=== PATIENT | female | born 1980 | race Caucasian/White ===

== ENCOUNTER 2018-05-14 21:51 | Inpatient (IN) | payer MEDICAID ==
[2018-05-14 22:48] LABS: HEMATOCRIT 38.5 % (41.0-60); HEMOGLOBIN 13.2 gm/dL (12-16); LYMPHOCYTE ABSOLUTE 2.1 Th/cmm (1.5-3.0); MEAN CELL VOLUME 101.9 fl (81-100); MEAN CORPUSCULAR HEMOGLOBIN 34.8 pg (27.0-31.0); MEAN CORPUSCULAR HGB CONC 34.1 pg (28.0-36.0); MEAN PLATELET VOLUME 6.7 fl; MONOCYTE ABSOLUTE 1.2 Th/cmm (0.3-1.0); NEUTROPHILE ABSOLUTE 3.8 Th/cmm (1.8-8.0); PLATELET COUNT 277 Th/cmm (150-400); RED BLOOD COUNT 3.78 Mil/cmm (3.80-5.10); RED CELL DISTRIBUTION WIDTH 14.2 % (11.5-20.0); WHITE BLOOD COUNT 7.1 Th/cmm (4.8-10.8)
[2018-05-14 23:05] LABS: VALPROIC ACID 14.7 ug/mL (50.0-100.0)
[2018-05-14 23:07] LABS: ALB/GLOB RATIO 1.1 (1.0-1.8); ALBUMIN 3.7 gm/dL (3.7-5.3); ALKALINE PHOSPHATASE 62 U/L (34-104); ANION GAP 15.7 (7.0-16.0); BILIRUBIN,TOTAL 0.4 mg/dL (0.3-1.0); BUN - UREA NITROGEN 15 mg/dL (7-25); CALCIUM SERUM 9.6 mg/dL (8.6-10.3); CARBON DIOXIDE 22.9 mEq/L (21.0-31.0); CHLORIDE 101 mEq/L (98-107); CREATININE - SERUM 0.7 mg/dL (0.6-1.2); GFR AFRICAN-AMERICAN > 60.0 ml/min (>90); GFR NON AFRICAN-AMERICAN > 60.0 ml/min; GLUCOSE 130 mg/dL (70-105); MAGNESIUM 1.8 mg/dL (1.9-2.7); PHOSPHOROUS 3.6 mg/dL (2.5-5.0); POTASSIUM SERUM 3.6 mEq/L (3.5-5.1); SGOT 24 U/L (13-39); SGPT/ALT 16 U/L (7-52); SODIUM SERUM 136 mEq/L (136-145); TOTAL PROTEIN,SERUM 7.1 gm/dL (6.0-8.3)
[2018-05-14 23:14] LABS: URINE SOURCE CATH
[2018-05-14 23:16] LABS: BAND NEUTROPHILE 3 % (0-10); LYMPHOCYTE 25 % (20-50); NEUTROPHILS 52 % (40-80)
[2018-05-14 23:16] LABS: URINE BILIRUBIN NEGATIVE (NEGATIVE); URINE BLOOD LARGE (NEGATIVE); URINE GLUCOSE (UA) NEGATIVE (NEGATIVE); URINE KETONE 40 mg/dL (NEGATIVE); URINE LEUKOCYTE ESTERASE NEGATIVE (NEGATIVE); URINE MICROSCOPIC INDICATED? YES; URINE NITRATE NEGATIVE (NEGATIVE); URINE PROTEIN 30 mg/dL (NEGATIVE)
[2018-05-14 23:17] LABS: BASOPHIL 2 % (0-3); EOSINOPHIL 0 % (0-5); MONOCYTE 18 % (2-10); PLATELET ESTIMATE ADEQUATE (NORMAL); PLATELET MORPHOLOGY NORMAL (NORMAL)
[2018-05-14 23:20] LABS: URINE CLARITY CLEAR (CLEAR); URINE COLOR YELLOW
[2018-05-14 23:38] LABS: URINE EPITHELIAL CELLS RARE /lpf (FEW)
[2018-05-14 23:39] LABS: URINE BACTERIA NONE SEEN /hpf (NONE SEEN)
[2018-05-14] MEDS ORDERED: Lactated Ringer 1,000 ML IV ONE (23:39)
[2018-05-14 23:47] LABS: AMPHETAMINE URINE NEGATIVE (NEGATIVE); BARBITURATES URINE NEGATIVE (NEGATIVE); BENZODIAZEPINES QUAL URINE NEGATIVE (NEGATIVE); CANNABINOID THC NEGATIVE (NEGATIVE); COCAINE METABOLITE QUAL URINE NEGATIVE (NEGATIVE); METHADONE URINE NEGATIVE (NEGATIVE); METHAMPHETAMINES QUAL URINE NEGATIVE (NEGATIVE); OPIATES (MORPHINE) QUAL. URINE NEGATIVE (NEGATIVE); PHENCYCLIDINE (PCP) URINE NEGATIVE (NEGATIVE); TRICYCLICS (TCA) QUAL. URINE POSITIVE (NEGATIVE)
--- NOTE | 2018-05-15 00:25 | ED Physician Chart ---
ED Chief Complaint/HPI - Patient Information Date Seen:: 05/14/18 Time Seen:: 22:00 Chief Complaint:: vomiting x 1; failure to thrive History of Present Illness:: vomiting x 1; failure to thrive Allergies:: Allergies Allergy/AdvReac Type Severity Reaction Status Date / Time No Known Allergies Allergy Verified 05/14/18 22:10 Vitals:: Vital Signs - 8 hr 05/14/18 22:00 Temp 97.6 F HR 84 RR 18 BP 106/64 O2 Sat % 97 ED Review of Systems - Review of Systems General/Constitutional: No fever, No chills, No weight loss, No weakness, No diaphoresis, No edema, No loss of appetite Skin: No skin lesions, No rash, No bruising Head: No headache, No light-headedness Eyes: No loss of vision, No pain, No diplopia ENT: No earache, No nasal drainage, No sore throat, No tinnitus Neck: No neck pain, No swelling, No thyromegaly, No stiffness, No mass noted Cardio Vascular: No chest pain, No palpitations, No PND, No orthopnea, No edema Pulmonary: No SOB, No cough, No sputum, No wheezing GI: Nausea, Vomiting G/U: No dysuria, No frequency, No hematuria Musculoskeletal: No bone or joint pain, No back pain, No muscle pain Endocrine: No polyuria, No polydipsia Psychiatric: No prior psych history, No depression, No anxiety, No suicidal ideation Hematopoietic: No bruising, No lymphadenopathy Allergic/Immuno: No urticaria, No angioedema Neurological: No syncope, No focal symptoms, No weakness, No paresthesia, No headache, No seizure, No dizziness, No confusion, No vertigo Family Medical History - Family Member Mother History Unknown: Yes ED Physical Exam - Physical Examination General/Constitutional: Awake, Well-developed, well-nourished, Alert, No distress, GCS 15, Non-toxic appearing, Ambulatory Head: Atraumatic Eyes: Lids, conjuctiva normal, PERRL, EOMI Skin: Nl inspection, No rash, No skin lesions, No ecchymosis, Well hydrated, No lymphadenopathy ENMT: External ears, nose nl, Nasal exam nl, Lips, teeth, gums nl Neck: Nontender, Full ROM w/o pain, No JVD, No nuchal rigidity, No bruit, No mass, No stridor Respiratory: Nl effort/Exclusion Cardio Vascular: RRR, No murmur, gallop, rubs, NL S1 S2 GI: No tenderness/rebounding/guarding, No organomegaly, No hernia, Normal BS's, Nondistended, No mass/bruits, No McBurney tenderness : No CVA tenderness Extremities: No tenderness or effusion, Full ROM, normal strength in all extremities, No edema, Normal digits & nails Other Extremities comments:: bruising on legs. Neuro/Psych: No focal deficits Misc: Normal back, No paraspinal tenderness ED Labs/Radiology/EKG Results - Lab Results Results: Laboratory Tests 05/14/18 05/14/18 05/14/18 22:40 22:40 22:40 WBC 7.1 RBC 3.78 L Hgb 13.2 Hct 38.5 L MCV 101.9 H MCH 34.8 H MCHC Differential 34.1 RDW 14.2 Plt Count 277 MPV 6.7 Add Manual Diff YES Band Neutrophils % 3 Neutrophils (Manual) 52 Lymphocytes 25 Monocytes 18 H Eosinophils 0 Basophils 2 Platelet Estimate ADEQUATE Platelet Morphology NORMAL RBC Morph Micro Appear NORMAL Sodium 136 Potassium 3.6 Chloride 101 Carbon Dioxide 22.9 Anion Gap 15.7 BUN 15 Creatinine 0.7 Est GFR ( Amer) > 60.0 Est GFR (Non-Af Amer) > 60.0 BUN/Creatinine Ratio 21.4 Glucose 130 H Calcium 9.6 Phosphorus 3.6 Magnesium 1.8 L Total Bilirubin 0.4 AST 24 ALT 16 Alkaline Phosphatase 62 Total Protein 7.1 Albumin 3.7 Globulin 3.4 Albumin/Globulin Ratio 1.1 TSH 4.78 Urine Source Urine Color Urine Clarity Urine pH Ur Specific [place] Urine Protein Urine Glucose (UA) Urine Ketones Urine Blood Urine Nitrate Urine Bilirubin Urine Urobilinogen Ur Leukocyte Esterase Urine RBC Urine WBC Ur Epithelial Cells Urine Bacteria Urine Mucus Urine Opiates Screen Urine Methadone Screen Ur Barbiturates Screen Valproic Acid 14.7 L Ur Tricyclics Screen Ur Phencyclidine Scrn Amphetamines Screen U Methamphetamines Scrn U Benzodiazepines Scrn U Cocaine Metab Screen U Cannabinoids Screen 05/14/18 05/14/18 23:00 23:00 WBC RBC Hgb Hct MCV MCH MCHC Differential RDW Plt Count MPV Add Manual Diff Band Neutrophils % Neutrophils (Manual) Lymphocytes Monocytes Eosinophils Basophils Platelet Estimate Platelet Morphology RBC Morph Micro Appear Sodium Potassium Chloride Carbon Dioxide Anion Gap BUN Creatinine Est GFR ( Amer) Est GFR (Non-Af Amer) BUN/Creatinine Ratio Glucose Calcium Phosphorus Magnesium Total Bilirubin AST ALT Alkaline Phosphatase Total Protein Albumin Globulin Albumin/Globulin Ratio TSH Urine Source CATH Urine Color YELLOW Urine Clarity CLEAR Urine pH 7.0 Ur Specific [place] 1.015 Urine Protein 30 H Urine Glucose (UA) NEGATIVE Urine Ketones 40 H Urine Blood LARGE H Urine Nitrate NEGATIVE Urine Bilirubin NEGATIVE Urine Urobilinogen 1.0 Ur Leukocyte Esterase NEGATIVE Urine RBC 10-25 H Urine WBC 2-5 Ur Epithelial Cells RARE Urine Bacteria NONE SEEN Urine Mucus FEW Urine Opiates Screen NEGATIVE Urine Methadone Screen NEGATIVE Ur Barbiturates Screen NEGATIVE Valproic Acid Ur Tricyclics Screen POSITIVE H Ur Phencyclidine Scrn NEGATIVE Amphetamines Screen NEGATIVE U Methamphetamines Scrn NEGATIVE U Benzodiazepines Scrn NEGATIVE U Cocaine Metab Screen NEGATIVE U Cannabinoids Screen NEGATIVE ED Assessment - Assessment General Assessment: spoke to Dr. Liao about admitting this patient for IV fluids. ED Septic Shock - . Is Septic Shock (SBP<90, OR Lactate>4 mmol\L) present?: No - <6hrs of presentation: Vital Signs: Vital Signs - 8 hr 05/14/18 22:00 Temp 97.6 F HR 84 RR 18 BP 106/64 O2 Sat % 97 ED Reassessment (Disposition) - Reassessment Reassessment Condition:: Unchanged - Diagnosis Diagnosis:: Failure to thrive - Patient Disposition Discharge/Transfer:: Acute Care w/in this hosp Admitted to:: Med/Surg Condition at Disposition:: Stable, Unchanged
[2018-05-15] MEDS: D5-0.45NS 1,000 ML IV SCH ×2 (01:43→13:41)
[2018-05-15 02:18] VITALS: BP 96/61
[2018-05-15] MEDS ORDERED: Pneumococcal Vaccine 0.5 mL Vial IM ONE (02:28)
[2018-05-15 06:56] LABS: HEMOGLOBIN 11.8 gm/dL (12-16); MEAN CELL VOLUME 101.9 fl (81-100); MEAN CORPUSCULAR HEMOGLOBIN 35.2 pg (27.0-31.0); MEAN CORPUSCULAR HGB CONC 34.6 pg (28.0-36.0); PLATELET COUNT 261 Th/cmm (150-400); RED BLOOD COUNT 3.34 Mil/cmm (3.80-5.10); RED CELL DISTRIBUTION WIDTH 13.8 % (11.5-20.0); WHITE BLOOD COUNT 6.6 Th/cmm (4.8-10.8)
[2018-05-15 07:18] LABS: ALB/GLOB RATIO 1.2 (1.0-1.8); ALKALINE PHOSPHATASE 49 U/L (34-104); ANION GAP 8.7 (7.0-16.0); BILIRUBIN,TOTAL 0.2 mg/dL (0.3-1.0); BUN - UREA NITROGEN 12 mg/dL (7-25); CALCIUM SERUM 8.8 mg/dL (8.6-10.3); CHLORIDE 105 mEq/L (98-107); CREATININE - SERUM 0.6 mg/dL (0.6-1.2); GFR AFRICAN-AMERICAN > 60.0 ml/min (>90); GFR NON AFRICAN-AMERICAN > 60.0 ml/min; GLUCOSE 120 mg/dL (70-105); POTASSIUM SERUM 3.7 mEq/L (3.5-5.1); SGOT 18 U/L (13-39); SGPT/ALT 12 U/L (7-52); SODIUM SERUM 136 mEq/L (136-145); TOTAL PROTEIN,SERUM 5.6 gm/dL (6.0-8.3)
[2018-05-15 07:19] LABS: CHOLESTEROL 147 mg/dL (<200); HDL -HIGH DENSITY LIPOPROTEIN 63 mg/dL (23-92); TRIGLYCERIDES 75 mg/dL (<150)
[2018-05-15] MEDS ORDERED: CABERGOLINE 0.25 MG PO SCH (08:00)
[2018-05-15] MEDS ORDERED: CABERGOLINE 0.5 MG PO SCH (08:00)
[2018-05-15 08:15] LABS: BAND NEUTROPHILE 4 % (0-10); BASOPHIL 0 % (0-3); EOSINOPHIL 0 % (0-5); LYMPHOCYTE 30 % (20-50); MONOCYTE 14 % (2-10); NEUTROPHILS 52 % (40-80)
[2018-05-15] MEDS ORDERED: Non-Formulary Item 1 EA (Omeprazole [Omeprazole] 40 MG) PO SCH (09:00)
[2018-05-15] MEDS ORDERED: HALOPERIDOL 2 MG PO SCH (09:00)
[2018-05-15] MEDS ORDERED: BACITRACIN TP SCH (09:00)
[2018-05-15] MEDS: Benztropine 1 MG TAB PO SCH ×4 (09:32→19:03)
[2018-05-15] MEDS: Vitamin D3 2,000 IU SGL PO SCH ×2 (09:32→12:55)
[2018-05-15] MEDS: Lactulose 10 Gm/15 mL 30mL UDC PO SCH ×2 (09:32→12:54)
[2018-05-15] MEDS: Levothyroxine 0.025 Mg Tab PO SCH ×2 (09:33→12:55)
--- NOTE | 2018-05-15 13:12 | History & Physical ---
ADMIT DATE: 05/15/2018 REQUESTING PHYSICIAN: Dr. Liao. REASON FOR CONSULTATION: Nausea and vomiting. HISTORY OF PRESENT ILLNESS: This is a 37-year-old female with history of mental retardation who usually lives in a care facility, who was brought in for reportedly one episode of nausea and vomiting. The patient currently is in no acute distress, lying in her bed and nursing notes and report is not mentioned any further episodes of nausea or vomiting. The patient is currently not receiving anything for her nausea and we have ordered Zofran p.r.n. The patient was noted to be slightly dehydrated upon presentation and was thus admitted. PAST MEDICAL HISTORY: History of mental retardation. No other past medical history is able to be assessed. FAMILY HISTORY: Unknown given patient's current history. REVIEW OF SYSTEMS: Unable to obtain given the patient's current state. MEDICATIONS: Have been reviewed. PHYSICAL EXAMINATION: VITAL SIGNS: Temperature 97.6, pulse of 84, respiratory rate of 18, blood pressure is 106/64, she is satting 97% on room air. GENERAL: No acute distress. HEENT: Normocephalic, atraumatic. PERRL positive. LUNGS: Clear bilaterally. No wheezes, rales, or rhonchi. HEART: Regular rate and rhythm, normal S1, S2. ABDOMEN: Soft, nontender, bowel sounds are positive. EXTREMITIES: Show no lower extremity edema. NEUROLOGIC: Grossly intact. LABORATORY DATA: White count of 7.1, hemoglobin 13.2, hematocrit 38.5, platelets of 277. Sodium 136, potassium 3.6, chloride 101, CO2 of 22.9. IMAGING: No relevant imaging has been ordered. ASSESSMENT AND PLAN: This is a 37-year-old female with history of mental retardation, developmental delay, who presents with episode of nausea and vomiting. 1. Intractable nausea and vomiting. 2. History of developmental delay. 3. Abdominal discomfort. RECOMMENDATIONS: Agree with empiric PPI therapy. We will also add Zofran to her regimen to see if this will assist. Discussed with nursing staff who will phone over to the care facility, she was at to help with patient's feeding and see if she has any preferences when I pertaining to this matter. If the patient has inability to eat for any reason, we would recommend a bedside swallow evaluation and further recommendations to follow pending this. JOB# [id number]
--- NOTE | 2018-05-15 13:50 | History & Physical ---
ADMIT DATE: 05/15/2018 CHIEF COMPLAINT: Failure to thrive. HISTORY OF PRESENT ILLNESS: This is a 37-year-old female who was admitted to the Emergency Room from a fdc facility due to failure to thrive and weakness. REVIEW OF SYSTEMS: GENERAL: This is a 37-year-old female that appears as stated. CONSTITUTIONAL: No fever. No weakness. HEENT: Head: No headache. No dizziness. Eyes: No eye pain. No blurring of vision. NECK: No neck pain. No nuchal rigidity. CHEST: No chest pain. No palpitation. PULMONARY: No coughing. No shortness of breath. GASTROINTESTINAL: No constipation. No diarrhea. Positive vomiting. No abdominal pain. MUSCULOSKELETAL: No joint pain. No muscle pain. SOCIAL HISTORY: The patient lives in a fdc facility prior to hospitalization. FAMILY HISTORY: Unremarkable. PAST SURGICAL HISTORY: Unremarkable. PAST MEDICAL HISTORY: Includes mental retardation, hypothyroidism. PHYSICAL EXAMINATION: VITAL SIGNS: Temperature 98.2, heart rate of 80, blood pressure 96/63, respiration 18, 100% on room air. HEENT: Head is atraumatic, normocephalic. Eyes: Bilateral conjunctivae are clear. Bilateral pupils equal, round and reactive. NECK: Supple. No JVD. CARDIOVASCULAR: S1 and S2, without murmur. PULMONARY: Clear to auscultation. GASTROINTESTINAL: Soft and nontender without guarding. Positive bowel sounds. MUSCULOSKELETAL: No clubbing. No cyanosis noted. ASSESSMENT: 1. Failure to thrive. 2. Mental retardation. 3. Vitamin D deficiency. 4. Hypothyroidism. 5. Gastroesophageal reflux disease. PLAN: We will put the patient with IV fluids. We will consult with the GI doctor. We will do medication reconciliation accordingly. We will put the patient aspiration precaution. Treatment plans were discussed with the patient's nurse. Treatment plans were discussed with Dr. Liao. JOB# [id number]
[2018-05-16] MEDS: D5-0.45NS 1,000 ML IV SCH ×2 (03:47→16:49)
[2018-05-16] MEDS: Levothyroxine 0.025 Mg Tab PO SCH (08:34)
[2018-05-16] MEDS: Vitamin D3 2,000 IU SGL PO SCH (08:35)
[2018-05-16] MEDS: Benztropine 1 MG TAB PO SCH (08:35)
[2018-05-16] MEDS: Lactulose 10 Gm/15 mL 30mL UDC PO SCH (08:35)
--- NOTE | 2018-05-16 11:43 | General Progress Note ---
Subjective - Review of Systems Subjective: patient awake admitted with failure to thrive is mentally challenge Objective - Results Result Diagrams: 05/15/18 06:10 05/15/18 06:10 Recent Labs: Laboratory Last Values WBC 6.6 Th/cmm (4.8-10.8) 05/15/18 06:10 RBC 3.34 Mil/cmm (3.80-5.10) L 05/15/18 06:10 Hgb 11.8 gm/dL (12-16) L 05/15/18 06:10 Hct 34.0 % (41.0-60) L 05/15/18 06:10 MCV 101.9 fl (81-100) H 05/15/18 06:10 MCH 35.2 pg (27.0-31.0) H 05/15/18 06:10 MCHC Differential 34.6 pg (28.0-36.0) 05/15/18 06:10 RDW 13.8 % (11.5-20.0) 05/15/18 06:10 Plt Count 261 Th/cmm (150-400) 05/15/18 06:10 MPV 7.0 fl 05/15/18 06:10 Add Manual Diff YES 05/15/18 06:10 Band Neutrophils % 4 % (0-10) 05/15/18 06:10 Neutrophils (Manual) 52 % (40-80) 05/15/18 06:10 Lymphocytes 30 % (20-50) 05/15/18 06:10 Monocytes 14 % (2-10) H 05/15/18 06:10 Eosinophils 0 % (0-5) 05/15/18 06:10 Basophils 0 % (0-3) 05/15/18 06:10 Platelet Estimate ADEQUATE (NORMAL) 05/14/18 22:40 Platelet Morphology NORMAL (NORMAL) 05/14/18 22:40 RBC Morph Micro Appear NORMAL (NORMAL) 05/14/18 22:40 Sodium 136 mEq/L (136-145) 05/15/18 06:10 Potassium 3.7 mEq/L (3.5-5.1) 05/15/18 06:10 Chloride 105 mEq/L (98-107) 05/15/18 06:10 Carbon Dioxide 26.0 mEq/L (21.0-31.0) 05/15/18 06:10 Anion Gap 8.7 (7.0-16.0) 05/15/18 06:10 BUN 12 mg/dL (7-25) 05/15/18 06:10 Creatinine 0.6 mg/dL (0.6-1.2) 05/15/18 06:10 Est GFR ( Amer) > 60.0 ml/min (>90) 05/15/18 06:10 Est GFR (Non-Af Amer) > 60.0 ml/min 05/15/18 06:10 BUN/Creatinine Ratio 20.0 05/15/18 06:10 Glucose 120 mg/dL (70-105) H 05/15/18 06:10 Calcium 8.8 mg/dL (8.6-10.3) 05/15/18 06:10 Phosphorus 3.6 mg/dL (2.5-5.0) 05/14/18 22:40 Magnesium 1.8 mg/dL (1.9-2.7) L 05/14/18 22:40 Total Bilirubin 0.2 mg/dL (0.3-1.0) L 05/15/18 06:10 AST 18 U/L (13-39) 05/15/18 06:10 ALT 12 U/L (7-52) 05/15/18 06:10 Alkaline Phosphatase 49 U/L (34-104) 05/15/18 06:10 Total Protein 5.6 gm/dL (6.0-8.3) L 05/15/18 06:10 Albumin 3.0 gm/dL (3.7-5.3) L 05/15/18 06:10 Globulin 2.6 gm/dL 05/15/18 06:10 Albumin/Globulin Ratio 1.2 (1.0-1.8) 05/15/18 06:10 Triglycerides 75 mg/dL (<150) 05/15/18 06:10 Cholesterol 147 mg/dL (<200) 05/15/18 06:10 LDL Cholesterol Direct 67 mg/dL (75-193) L 05/15/18 06:10 HDL Cholesterol 63 mg/dL (23-92) 05/15/18 06:10 TSH 3.28 uIU/ml (0.34-5.60) 05/15/18 06:10 Urine Source CATH 05/14/18 23:00 Urine Color YELLOW 05/14/18 23:00 Urine Clarity CLEAR (CLEAR) 05/14/18 23:00 Urine pH 7.0 (4.6 - 8.0) 05/14/18 23:00 Ur Specific [place] 1.015 (1.005-1.030) 05/14/18 23:00 Urine Protein 30 mg/dL (NEGATIVE) H 05/14/18 23:00 Urine Glucose (UA) NEGATIVE mg/dL (NEGATIVE) 05/14/18 23:00 Urine Ketones 40 mg/dL (NEGATIVE) H 05/14/18 23:00 Urine Blood LARGE (NEGATIVE) H 05/14/18 23:00 Urine Nitrate NEGATIVE (NEGATIVE) 05/14/18 23:00 Urine Bilirubin NEGATIVE (NEGATIVE) 05/14/18 23:00 Urine Urobilinogen 1.0 E.U./dL (0.2 - 1.0) 05/14/18 23:00 Ur Leukocyte Esterase NEGATIVE (NEGATIVE) 05/14/18 23:00 Urine RBC 10-25 /hpf (0-5) H 05/14/18 23:00 Urine WBC 2-5 /hpf (0-5) 05/14/18 23:00 Ur Epithelial Cells RARE /lpf (FEW) 05/14/18 23:00 Urine Bacteria NONE SEEN /hpf (NONE SEEN) 05/14/18 23:00 Urine Mucus FEW /lpf (FEW) 05/14/18 23:00 Urine Opiates Screen NEGATIVE (NEGATIVE) 05/14/18 23:00 Urine Methadone Screen NEGATIVE (NEGATIVE) 05/14/18 23:00 Ur Barbiturates Screen NEGATIVE (NEGATIVE) 05/14/18 23:00 Valproic Acid 14.7 ug/mL (50.0-100.0) L 05/14/18 22:40 Ur Tricyclics Screen POSITIVE (NEGATIVE) H 05/14/18 23:00 Ur Phencyclidine Scrn NEGATIVE (NEGATIVE) 05/14/18 23:00 Amphetamines Screen NEGATIVE (NEGATIVE) 05/14/18 23:00 U Methamphetamines Scrn NEGATIVE (NEGATIVE) 05/14/18 23:00 U Benzodiazepines Scrn NEGATIVE (NEGATIVE) 05/14/18 23:00 U Cocaine Metab Screen NEGATIVE (NEGATIVE) 05/14/18 23:00 U Cannabinoids Screen NEGATIVE (NEGATIVE) 05/14/18 23:00 - Physical Exam Vitals and I&O: Vital Signs Temp 98.3 F 05/16/18 07:46 Pulse 78 05/16/18 07:46 Resp 18 05/16/18 08:00 BP 124/71 05/16/18 07:46 Pulse Ox 96 05/16/18 07:46 Intake & Output 05/15/18 05/16/18 05/16/18 18:59 06:59 18:59 Intake Total 997.5 1000 Balance 997.5 1000 Weight (lbs) 54.431 kg 53.524 kg Intake: Intake, IV Amount 897.5 1000 D5-0.45NS 1,000 ml @ 75 897.5 1000 mls/hr IV .[id number] [facility] Rx #:[id number] Oral 100 Other: # Voids 2 2 # Bowel Movements 0 Weight Source Bedscale Bedscale Active Medications: Current Medications Benztropine Mesylate (Cogentin) 1 mg PO BID JOHN Stop: 07/14/18 08:59 Last Admin: 05/16/18 08:35 Dose: Not Given Divalproex Sodium (Depakote Dr) 125 mg PO Q12HR JOHN Stop: 07/15/18 20:59 Haloperidol (Haldol) 2 mg PO BID PRN; Protocol PRN Reason: Agitation Stop: 07/15/18 16:59 Dextrose/Sodium Chloride (D5-0.45ns) 1,000 mls @ 75 mls/hr IV .[id number] JOHN Stop: 07/14/18 00:59 Last Admin: 05/16/18 03:47 Dose: 75 mls/hr Lactulose (Cephulac) 20 gm PO DAILY JOHN Stop: 07/14/18 08:59 Last Admin: 05/16/18 08:35 Dose: Not Given Levothyroxine Sodium (Synthroid) 0.025 mg PO QDAC JOHN Stop: 07/14/18 08:59 Last Admin: 05/16/18 08:34 Dose: Not Given Lorazepam (Ativan) 0.5 mg PO BID PRN; Protocol PRN Reason: Anxiety Stop: 07/15/18 11:15 Miscellaneous (Bacitracin [Bacitracin]) 1 each TP BID JOHN Stop: 07/14/18 08:59 Miscellaneous (Cabergoline [Cabergoline]) 0.25 mg PO QTHUR [facility] Stop: 07/14/18 07:59 Miscellaneous (Cabergoline [Cabergoline]) 0.5 mg PO QMON [facility] Stop: 07/14/18 07:59 Miscellaneous (Haloperidol [Haloperidol]) 2 mg PO BID [facility] Stop: 07/14/18 08:59 Ondansetron HCl (Zofran) 4 mg IV Q6H PRN PRN Reason: Nausea / Vomiting Stop: 07/14/18 09:50 Last Admin: 05/15/18 12:51 Dose: 4 mg Pneumococcal Polyvalent Vaccine (Pneumovax) 0.5 ml IM .ONCE ONE Stop: 05/15/18 02:29 Quetiapine Fumarate (Seroquel) 150 mg PO HS [facility]; Protocol Stop: 07/14/18 20:59 Vitamin D (Vitamin D3) 2,000 iu PO DAILY [facility] Stop: 07/14/18 08:59 Last Admin: 05/16/18 08:35 Dose: Not Given
--- NOTE | 2018-05-16 12:19 | Consultation ---
DATE OF CONSULTATION: 05/16/2018 PSYCHIATRIC CONSULTATION HISTORY OF PRESENT ILLNESS: Staff was spoken to. The patient is interviewed. This patient is a 37-year-old, admitted from the jail facility due to failure to thrive and weakness and psychiatric consultation is called to address the issue of the patient's bizarre behavior. Staff was spoken to. The patient is interviewed. When I am talking to the patient, the patient is laughing inappropriately and is responding to the internal stimuli. The patient seems to be intellectually challenged and is not able to provide much of information. PAST PSYCHIATRIC HISTORY: Details are not known. SOCIAL HISTORY: The patient is a resident of a jail facility. LEGAL PROBLEMS: None at this time. PHYSICAL OR SEXUAL ABUSE HISTORY: None known. MENTAL STATUS EXAMINATION: The patient is a 37-year-old, looking her stated age. She is laughing and giggling. Insight is admitted to be impaired. Impulse control is noted to be poor. The patient is of below average intelligence. The patient is not able to contract for safety. The patient has been very paranoid. Last night, the staff reported that the patient's sleep is noted to be very poor. ASSESSMENT AND PLAN: The patient at the time of evaluation has been on the valproic acid, which is going to be given at 25 mg twice a day. The patient is going to be discontinued off of the benztropine. The patient is going to be continued on the Seroquel, which is going to be given at 150 mg at bedtime and Haldol is going to be given at 2 mg b.i.d. p.r.n. and the patient is going to be followed up with the supportive therapy. The patient's dose of her medications is going to be adjusted accordingly. Thank you, Dr. Liao for allowing me to participate in the care of the patient. JOB# [id number]
--- NOTE | 2018-05-16 12:29 | GI Progress Note ---
Subjective - Review of Systems Service Date: 05/16/18 Events since last encounter: Pt refusing food, only laughing Objective - Results Result Diagrams: 05/15/18 06:10 05/15/18 06:10 Recent Labs: Laboratory Last Values WBC 6.6 Th/cmm (4.8-10.8) 05/15/18 06:10 RBC 3.34 Mil/cmm (3.80-5.10) L 05/15/18 06:10 Hgb 11.8 gm/dL (12-16) L 05/15/18 06:10 Hct 34.0 % (41.0-60) L 05/15/18 06:10 MCV 101.9 fl (81-100) H 05/15/18 06:10 MCH 35.2 pg (27.0-31.0) H 05/15/18 06:10 MCHC Differential 34.6 pg (28.0-36.0) 05/15/18 06:10 RDW 13.8 % (11.5-20.0) 05/15/18 06:10 Plt Count 261 Th/cmm (150-400) 05/15/18 06:10 MPV 7.0 fl 05/15/18 06:10 Add Manual Diff YES 05/15/18 06:10 Band Neutrophils % 4 % (0-10) 05/15/18 06:10 Neutrophils (Manual) 52 % (40-80) 05/15/18 06:10 Lymphocytes 30 % (20-50) 05/15/18 06:10 Monocytes 14 % (2-10) H 05/15/18 06:10 Eosinophils 0 % (0-5) 05/15/18 06:10 Basophils 0 % (0-3) 05/15/18 06:10 Platelet Estimate ADEQUATE (NORMAL) 05/14/18 22:40 Platelet Morphology NORMAL (NORMAL) 05/14/18 22:40 RBC Morph Micro Appear NORMAL (NORMAL) 05/14/18 22:40 Sodium 136 mEq/L (136-145) 05/15/18 06:10 Potassium 3.7 mEq/L (3.5-5.1) 05/15/18 06:10 Chloride 105 mEq/L (98-107) 05/15/18 06:10 Carbon Dioxide 26.0 mEq/L (21.0-31.0) 05/15/18 06:10 Anion Gap 8.7 (7.0-16.0) 05/15/18 06:10 BUN 12 mg/dL (7-25) 05/15/18 06:10 Creatinine 0.6 mg/dL (0.6-1.2) 05/15/18 06:10 Est GFR ( Amer) > 60.0 ml/min (>90) 05/15/18 06:10 Est GFR (Non-Af Amer) > 60.0 ml/min 05/15/18 06:10 BUN/Creatinine Ratio 20.0 05/15/18 06:10 Glucose 120 mg/dL (70-105) H 05/15/18 06:10 Calcium 8.8 mg/dL (8.6-10.3) 05/15/18 06:10 Phosphorus 3.6 mg/dL (2.5-5.0) 05/14/18 22:40 Magnesium 1.8 mg/dL (1.9-2.7) L 05/14/18 22:40 Total Bilirubin 0.2 mg/dL (0.3-1.0) L 05/15/18 06:10 AST 18 U/L (13-39) 05/15/18 06:10 ALT 12 U/L (7-52) 05/15/18 06:10 Alkaline Phosphatase 49 U/L (34-104) 05/15/18 06:10 Total Protein 5.6 gm/dL (6.0-8.3) L 05/15/18 06:10 Albumin 3.0 gm/dL (3.7-5.3) L 05/15/18 06:10 Globulin 2.6 gm/dL 05/15/18 06:10 Albumin/Globulin Ratio 1.2 (1.0-1.8) 05/15/18 06:10 Triglycerides 75 mg/dL (<150) 05/15/18 06:10 Cholesterol 147 mg/dL (<200) 05/15/18 06:10 LDL Cholesterol Direct 67 mg/dL (75-193) L 05/15/18 06:10 HDL Cholesterol 63 mg/dL (23-92) 05/15/18 06:10 TSH 3.28 uIU/ml (0.34-5.60) 05/15/18 06:10 Urine Source CATH 05/14/18 23:00 Urine Color YELLOW 05/14/18 23:00 Urine Clarity CLEAR (CLEAR) 05/14/18 23:00 Urine pH 7.0 (4.6 - 8.0) 05/14/18 23:00 Ur Specific [place] 1.015 (1.005-1.030) 05/14/18 23:00 Urine Protein 30 mg/dL (NEGATIVE) H 05/14/18 23:00 Urine Glucose (UA) NEGATIVE mg/dL (NEGATIVE) 05/14/18 23:00 Urine Ketones 40 mg/dL (NEGATIVE) H 05/14/18 23:00 Urine Blood LARGE (NEGATIVE) H 05/14/18 23:00 Urine Nitrate NEGATIVE (NEGATIVE) 05/14/18 23:00 Urine Bilirubin NEGATIVE (NEGATIVE) 05/14/18 23:00 Urine Urobilinogen 1.0 E.U./dL (0.2 - 1.0) 05/14/18 23:00 Ur Leukocyte Esterase NEGATIVE (NEGATIVE) 05/14/18 23:00 Urine RBC 10-25 /hpf (0-5) H 05/14/18 23:00 Urine WBC 2-5 /hpf (0-5) 05/14/18 23:00 Ur Epithelial Cells RARE /lpf (FEW) 05/14/18 23:00 Urine Bacteria NONE SEEN /hpf (NONE SEEN) 05/14/18 23:00 Urine Mucus FEW /lpf (FEW) 05/14/18 23:00 Urine Opiates Screen NEGATIVE (NEGATIVE) 05/14/18 23:00 Urine Methadone Screen NEGATIVE (NEGATIVE) 05/14/18 23:00 Ur Barbiturates Screen NEGATIVE (NEGATIVE) 05/14/18 23:00 Valproic Acid 14.7 ug/mL (50.0-100.0) L 05/14/18 22:40 Ur Tricyclics Screen POSITIVE (NEGATIVE) H 05/14/18 23:00 Ur Phencyclidine Scrn NEGATIVE (NEGATIVE) 05/14/18 23:00 Amphetamines Screen NEGATIVE (NEGATIVE) 05/14/18 23:00 U Methamphetamines Scrn NEGATIVE (NEGATIVE) 05/14/18 23:00 U Benzodiazepines Scrn NEGATIVE (NEGATIVE) 05/14/18 23:00 U Cocaine Metab Screen NEGATIVE (NEGATIVE) 05/14/18 23:00 U Cannabinoids Screen NEGATIVE (NEGATIVE) 05/14/18 23:00 - Physical Exam Vitals and I&O: Vital Signs Temp 98.1 F 05/16/18 12:20 Pulse 69 05/16/18 12:20 Resp 18 05/16/18 12:20 BP 130/68 05/16/18 12:20 Pulse Ox 97 05/16/18 12:20 Intake & Output 05/15/18 05/16/18 05/16/18 18:59 06:59 18:59 Intake Total 997.5 1000 Balance 997.5 1000 Weight (lbs) 54.431 kg 53.524 kg Intake: Intake, IV Amount 897.5 1000 D5-0.45NS 1,000 ml @ 75 897.5 1000 mls/hr IV .[id number] JOHN Rx #:[id number] Oral 100 Other: # Voids 2 2 # Bowel Movements 0 Weight Source Bedscale Bedscale Active Medications: Current Medications Divalproex Sodium (Depakote Dr) 125 mg PO Q12HR JOHN Stop: 07/15/18 20:59 Haloperidol (Haldol) 2 mg PO BID PRN; Protocol PRN Reason: Agitation Stop: 07/15/18 16:59 Dextrose/Sodium Chloride (D5-0.45ns) 1,000 mls @ 75 mls/hr IV .[id number] JOHN Stop: 07/14/18 00:59 Last Admin: 05/16/18 03:47 Dose: 75 mls/hr Lactulose (Cephulac) 20 gm PO DAILY JOHN Stop: 07/14/18 08:59 Last Admin: 05/16/18 08:35 Dose: Not Given Levothyroxine Sodium (Synthroid) 0.025 mg PO QDAC JOHN Stop: 07/14/18 08:59 Last Admin: 05/16/18 08:34 Dose: Not Given Lorazepam (Ativan) 0.5 mg PO BID PRN; Protocol PRN Reason: Anxiety Stop: 07/15/18 11:15 Miscellaneous (Bacitracin [Bacitracin]) 1 each TP BID JOHN Stop: 07/14/18 08:59 Miscellaneous (Cabergoline [Cabergoline]) 0.25 mg PO QTHUR [facility] Stop: 07/14/18 07:59 Miscellaneous (Cabergoline [Cabergoline]) 0.5 mg PO QMON [facility] Stop: 07/14/18 07:59 Miscellaneous (Haloperidol [Haloperidol]) 2 mg PO BID [facility] Stop: 07/14/18 08:59 Ondansetron HCl (Zofran) 4 mg IV Q6H PRN PRN Reason: Nausea / Vomiting Stop: 07/14/18 09:50 Last Admin: 05/15/18 12:51 Dose: 4 mg Pneumococcal Polyvalent Vaccine (Pneumovax) 0.5 ml IM .ONCE ONE Stop: 05/15/18 02:29 Quetiapine Fumarate (Seroquel) 150 mg PO HS [facility]; Protocol Stop: 07/14/18 20:59 Vitamin D (Vitamin D3) 2,000 iu PO DAILY [facility] Stop: 07/14/18 08:59 Last Admin: 05/16/18 08:35 Dose: Not Given General: Alert, No acute distress HEENT: Atraumatic, PERRLA Cardiovascular: Regular rate, Normal S1, Normal S2 Lungs: Clear to auscultation, Normal air movement Abdomen: Bowel sounds, Soft Assessment/Plan - Assessment Assessment: 1. Refusal to eat 2. MR 3. ?nausea -check KUB to r/o any constipation -Abdomen soft, unclear if psychosis could be playing into this -Optimize psychiatric condition -will follow
[2018-05-17] MEDS: D5-0.45NS 1,000 ML IV SCH ×2 (06:07→20:27)
[2018-05-17] MEDS: Levothyroxine 0.025 Mg Tab PO SCH (06:34)
--- NOTE | 2018-05-17 08:13 | Diagnostic Imaging Report ---
KUB single view HISTORY: Abdominal pain. COMPARISON: None FINDINGS: Tubing material is seen overlying the left hemiabdomen, correlate clinically. Nonspecific gas-filled loops of bowel are noted with moderate stool greatest within the right colon. No gross free air. Mild degenerative changes of the spine are noted with mild scoliosis. IMPRESSION: Moderate amount of stool greatest within the right colon. Nonspecific gas-filled loops of bowel are also noted.
[2018-05-17] MEDS: Vitamin D3 2,000 IU SGL PO SCH (08:43)
[2018-05-17] MEDS: Lactulose 10 Gm/15 mL 30mL UDC PO SCH (08:43)
[2018-05-17] MEDS ORDERED: Magnesium Citrate 1.75 GM/300 mL Bottle PO ONE (14:04)
--- NOTE | 2018-05-17 14:06 | GI Progress Note ---
Subjective - Review of Systems Service Date: 05/17/18 Events since last encounter: Pt still very giggly and refusing to eat. KUB reviewed, lots of right sided stool Objective - Results Result Diagrams: 05/15/18 06:10 05/15/18 06:10 Recent Labs: Laboratory Last Values WBC 6.6 Th/cmm (4.8-10.8) 05/15/18 06:10 RBC 3.34 Mil/cmm (3.80-5.10) L 05/15/18 06:10 Hgb 11.8 gm/dL (12-16) L 05/15/18 06:10 Hct 34.0 % (41.0-60) L 05/15/18 06:10 MCV 101.9 fl (81-100) H 05/15/18 06:10 MCH 35.2 pg (27.0-31.0) H 05/15/18 06:10 MCHC Differential 34.6 pg (28.0-36.0) 05/15/18 06:10 RDW 13.8 % (11.5-20.0) 05/15/18 06:10 Plt Count 261 Th/cmm (150-400) 05/15/18 06:10 MPV 7.0 fl 05/15/18 06:10 Add Manual Diff YES 05/15/18 06:10 Band Neutrophils % 4 % (0-10) 05/15/18 06:10 Neutrophils (Manual) 52 % (40-80) 05/15/18 06:10 Lymphocytes 30 % (20-50) 05/15/18 06:10 Monocytes 14 % (2-10) H 05/15/18 06:10 Eosinophils 0 % (0-5) 05/15/18 06:10 Basophils 0 % (0-3) 05/15/18 06:10 Platelet Estimate ADEQUATE (NORMAL) 05/14/18 22:40 Platelet Morphology NORMAL (NORMAL) 05/14/18 22:40 RBC Morph Micro Appear NORMAL (NORMAL) 05/14/18 22:40 Sodium 136 mEq/L (136-145) 05/15/18 06:10 Potassium 3.7 mEq/L (3.5-5.1) 05/15/18 06:10 Chloride 105 mEq/L (98-107) 05/15/18 06:10 Carbon Dioxide 26.0 mEq/L (21.0-31.0) 05/15/18 06:10 Anion Gap 8.7 (7.0-16.0) 05/15/18 06:10 BUN 12 mg/dL (7-25) 05/15/18 06:10 Creatinine 0.6 mg/dL (0.6-1.2) 05/15/18 06:10 Est GFR ( Amer) > 60.0 ml/min (>90) 05/15/18 06:10 Est GFR (Non-Af Amer) > 60.0 ml/min 05/15/18 06:10 BUN/Creatinine Ratio 20.0 05/15/18 06:10 Glucose 120 mg/dL (70-105) H 05/15/18 06:10 Calcium 8.8 mg/dL (8.6-10.3) 05/15/18 06:10 Phosphorus 3.6 mg/dL (2.5-5.0) 05/14/18 22:40 Magnesium 1.8 mg/dL (1.9-2.7) L 05/14/18 22:40 Total Bilirubin 0.2 mg/dL (0.3-1.0) L 05/15/18 06:10 AST 18 U/L (13-39) 05/15/18 06:10 ALT 12 U/L (7-52) 05/15/18 06:10 Alkaline Phosphatase 49 U/L (34-104) 05/15/18 06:10 Total Protein 5.6 gm/dL (6.0-8.3) L 05/15/18 06:10 Albumin 3.0 gm/dL (3.7-5.3) L 05/15/18 06:10 Globulin 2.6 gm/dL 05/15/18 06:10 Albumin/Globulin Ratio 1.2 (1.0-1.8) 05/15/18 06:10 Triglycerides 75 mg/dL (<150) 05/15/18 06:10 Cholesterol 147 mg/dL (<200) 05/15/18 06:10 LDL Cholesterol Direct 67 mg/dL (75-193) L 05/15/18 06:10 HDL Cholesterol 63 mg/dL (23-92) 05/15/18 06:10 TSH 3.28 uIU/ml (0.34-5.60) 05/15/18 06:10 Urine Source CATH 05/14/18 23:00 Urine Color YELLOW 05/14/18 23:00 Urine Clarity CLEAR (CLEAR) 05/14/18 23:00 Urine pH 7.0 (4.6 - 8.0) 05/14/18 23:00 Ur Specific [place] 1.015 (1.005-1.030) 05/14/18 23:00 Urine Protein 30 mg/dL (NEGATIVE) H 05/14/18 23:00 Urine Glucose (UA) NEGATIVE mg/dL (NEGATIVE) 05/14/18 23:00 Urine Ketones 40 mg/dL (NEGATIVE) H 05/14/18 23:00 Urine Blood LARGE (NEGATIVE) H 05/14/18 23:00 Urine Nitrate NEGATIVE (NEGATIVE) 05/14/18 23:00 Urine Bilirubin NEGATIVE (NEGATIVE) 05/14/18 23:00 Urine Urobilinogen 1.0 E.U./dL (0.2 - 1.0) 05/14/18 23:00 Ur Leukocyte Esterase NEGATIVE (NEGATIVE) 05/14/18 23:00 Urine RBC 10-25 /hpf (0-5) H 05/14/18 23:00 Urine WBC 2-5 /hpf (0-5) 05/14/18 23:00 Ur Epithelial Cells RARE /lpf (FEW) 05/14/18 23:00 Urine Bacteria NONE SEEN /hpf (NONE SEEN) 05/14/18 23:00 Urine Mucus FEW /lpf (FEW) 05/14/18 23:00 Urine Opiates Screen NEGATIVE (NEGATIVE) 05/14/18 23:00 Urine Methadone Screen NEGATIVE (NEGATIVE) 05/14/18 23:00 Ur Barbiturates Screen NEGATIVE (NEGATIVE) 05/14/18 23:00 Valproic Acid 14.7 ug/mL (50.0-100.0) L 05/14/18 22:40 Ur Tricyclics Screen POSITIVE (NEGATIVE) H 05/14/18 23:00 Ur Phencyclidine Scrn NEGATIVE (NEGATIVE) 05/14/18 23:00 Amphetamines Screen NEGATIVE (NEGATIVE) 05/14/18 23:00 U Methamphetamines Scrn NEGATIVE (NEGATIVE) 05/14/18 23:00 U Benzodiazepines Scrn NEGATIVE (NEGATIVE) 05/14/18 23:00 U Cocaine Metab Screen NEGATIVE (NEGATIVE) 05/14/18 23:00 U Cannabinoids Screen NEGATIVE (NEGATIVE) 05/14/18 23:00 - Physical Exam Vitals and I&O: Vital Signs Temp 98.4 F 05/17/18 12:00 Pulse 71 05/17/18 12:00 Resp 18 05/17/18 12:00 BP 99/63 05/17/18 12:00 Pulse Ox 99 05/17/18 12:00 Intake & Output 05/16/18 05/17/18 05/17/18 18:59 06:59 18:59 Intake Total 1027.5 997.5 Balance 1027.5 997.5 Weight (lbs) 53.524 kg 53.524 kg Intake: Intake, IV Amount 977.5 997.5 D5-0.45NS 1,000 ml @ 75 977.5 997.5 mls/hr IV .[id number] COUNT INCLUDES THE [facility] Rx #:[id number] Oral 50 Other: # Voids 2 Weight Source Bedscale Bedscale Active Medications: Current Medications Divalproex Sodium (Depakote Dr) 125 mg PO Q12HR COUNT INCLUDES THE [facility] Stop: 07/15/18 20:59 Last Admin: 05/17/18 08:43 Dose: 125 mg Haloperidol (Haldol) 2 mg PO BID PRN; Protocol PRN Reason: Agitation Stop: 07/15/18 16:59 Haloperidol (Haldol) 2 mg PO BID COUNT INCLUDES [facility] Stop: 07/16/18 08:59 Last Admin: 05/17/18 09:48 Dose: Not Given Dextrose/Sodium Chloride (D5-0.45ns) 1,000 mls @ 75 mls/hr IV .[id number] COUNT INCLUDES THE [facility] Stop: 07/14/18 00:59 Last Admin: 05/17/18 06:07 Dose: 75 mls/hr Lactulose (Cephulac) 20 gm PO DAILY JOHN Stop: 07/14/18 08:59 Last Admin: 05/17/18 08:43 Dose: 20 gm Levothyroxine Sodium (Synthroid) 0.025 mg PO QDAC JOHN Stop: 07/14/18 08:59 Last Admin: 05/17/18 06:34 Dose: Not Given Lorazepam (Ativan) 0.5 mg PO BID PRN; Protocol PRN Reason: Anxiety Stop: 07/15/18 11:15 Magnesium Citrate (Citroma) 17.5 gm PO X1 ONE Stop: 05/17/18 14:05 Miscellaneous (Cabergoline [Cabergoline]) 0.25 mg PO QTHUR COUNT INCLUDES THE [facility] Stop: 07/14/18 07:59 Miscellaneous (Cabergoline [Cabergoline]) 0.5 mg PO QMON COUNT INCLUDES THE [facility] Stop: 07/14/18 07:59 Ondansetron HCl (Zofran) 4 mg IV Q6H PRN PRN Reason: Nausea / Vomiting Stop: 07/14/18 09:50 Last Admin: 05/15/18 12:51 Dose: 4 mg Polyethylene Glycol (Miralax) 17 gm PO DAILY COUNT INCLUDES THE [facility] Stop: 07/16/18 13:14 Quetiapine Fumarate (Seroquel) 150 mg PO HS COUNT INCLUDES THE [facility]; Protocol Stop: 07/14/18 20:59 Last Admin: 05/16/18 20:48 Dose: 150 mg Vitamin D (Vitamin D3) 2,000 iu PO DAILY COUNT INCLUDES THE [facility] Stop: 07/14/18 08:59 Last Admin: 05/17/18 08:43 Dose: 2,000 iu General: Alert, No acute distress HEENT: Atraumatic, PERRLA Cardiovascular: Regular rate, Normal S1, Normal S2 Lungs: Clear to auscultation, Normal air movement Abdomen: Bowel sounds, Soft Assessment/Plan - Assessment Assessment: 1. Refusal to eat 2. MR 3. ?nausea -trial of miralax/magnesium citrate to help patient have a bm -Abdomen soft, unclear if psychosis could be playing into this -Optimize psychiatric condition -discussed with mom at bedside, will prefer conservative management for now
[2018-05-17] MEDS: POLYETHYLENE GLYCOL 3350 17 GM PACK PO SCH (18:35)
[2018-05-18] MEDS: Levothyroxine 0.025 Mg Tab PO SCH (09:01)
[2018-05-18] MEDS: Vitamin D3 2,000 IU SGL PO SCH (09:01)
[2018-05-18] MEDS: POLYETHYLENE GLYCOL 3350 17 GM PACK PO SCH (09:02)
[2018-05-18] MEDS: Lactulose 10 Gm/15 mL 30mL UDC PO SCH (09:02)
--- NOTE | 2018-05-18 09:23 | GI Progress Note ---
Subjective - Review of Systems Service Date: 05/18/18 Subjective: Pt refusing all oral intake, refusing miralax and magnesium citrate Objective - Results Result Diagrams: 05/15/18 06:10 05/15/18 06:10 Recent Labs: Laboratory Last Values WBC 6.6 Th/cmm (4.8-10.8) 05/15/18 06:10 RBC 3.34 Mil/cmm (3.80-5.10) L 05/15/18 06:10 Hgb 11.8 gm/dL (12-16) L 05/15/18 06:10 Hct 34.0 % (41.0-60) L 05/15/18 06:10 MCV 101.9 fl (81-100) H 05/15/18 06:10 MCH 35.2 pg (27.0-31.0) H 05/15/18 06:10 MCHC Differential 34.6 pg (28.0-36.0) 05/15/18 06:10 RDW 13.8 % (11.5-20.0) 05/15/18 06:10 Plt Count 261 Th/cmm (150-400) 05/15/18 06:10 MPV 7.0 fl 05/15/18 06:10 Add Manual Diff YES 05/15/18 06:10 Band Neutrophils % 4 % (0-10) 05/15/18 06:10 Neutrophils (Manual) 52 % (40-80) 05/15/18 06:10 Lymphocytes 30 % (20-50) 05/15/18 06:10 Monocytes 14 % (2-10) H 05/15/18 06:10 Eosinophils 0 % (0-5) 05/15/18 06:10 Basophils 0 % (0-3) 05/15/18 06:10 Platelet Estimate ADEQUATE (NORMAL) 05/14/18 22:40 Platelet Morphology NORMAL (NORMAL) 05/14/18 22:40 RBC Morph Micro Appear NORMAL (NORMAL) 05/14/18 22:40 Sodium 136 mEq/L (136-145) 05/15/18 06:10 Potassium 3.7 mEq/L (3.5-5.1) 05/15/18 06:10 Chloride 105 mEq/L (98-107) 05/15/18 06:10 Carbon Dioxide 26.0 mEq/L (21.0-31.0) 05/15/18 06:10 Anion Gap 8.7 (7.0-16.0) 05/15/18 06:10 BUN 12 mg/dL (7-25) 05/15/18 06:10 Creatinine 0.6 mg/dL (0.6-1.2) 05/15/18 06:10 Est GFR ( Amer) > 60.0 ml/min (>90) 05/15/18 06:10 Est GFR (Non-Af Amer) > 60.0 ml/min 05/15/18 06:10 BUN/Creatinine Ratio 20.0 05/15/18 06:10 Glucose 120 mg/dL (70-105) H 05/15/18 06:10 Calcium 8.8 mg/dL (8.6-10.3) 05/15/18 06:10 Phosphorus 3.6 mg/dL (2.5-5.0) 05/14/18 22:40 Magnesium 1.8 mg/dL (1.9-2.7) L 05/14/18 22:40 Total Bilirubin 0.2 mg/dL (0.3-1.0) L 05/15/18 06:10 AST 18 U/L (13-39) 05/15/18 06:10 ALT 12 U/L (7-52) 05/15/18 06:10 Alkaline Phosphatase 49 U/L (34-104) 05/15/18 06:10 Total Protein 5.6 gm/dL (6.0-8.3) L 05/15/18 06:10 Albumin 3.0 gm/dL (3.7-5.3) L 05/15/18 06:10 Globulin 2.6 gm/dL 05/15/18 06:10 Albumin/Globulin Ratio 1.2 (1.0-1.8) 05/15/18 06:10 Triglycerides 75 mg/dL (<150) 05/15/18 06:10 Cholesterol 147 mg/dL (<200) 05/15/18 06:10 LDL Cholesterol Direct 67 mg/dL (75-193) L 05/15/18 06:10 HDL Cholesterol 63 mg/dL (23-92) 05/15/18 06:10 TSH 3.28 uIU/ml (0.34-5.60) 05/15/18 06:10 Urine Source CATH 05/14/18 23:00 Urine Color YELLOW 05/14/18 23:00 Urine Clarity CLEAR (CLEAR) 05/14/18 23:00 Urine pH 7.0 (4.6 - 8.0) 05/14/18 23:00 Ur Specific [place] 1.015 (1.005-1.030) 05/14/18 23:00 Urine Protein 30 mg/dL (NEGATIVE) H 05/14/18 23:00 Urine Glucose (UA) NEGATIVE mg/dL (NEGATIVE) 05/14/18 23:00 Urine Ketones 40 mg/dL (NEGATIVE) H 05/14/18 23:00 Urine Blood LARGE (NEGATIVE) H 05/14/18 23:00 Urine Nitrate NEGATIVE (NEGATIVE) 05/14/18 23:00 Urine Bilirubin NEGATIVE (NEGATIVE) 05/14/18 23:00 Urine Urobilinogen 1.0 E.U./dL (0.2 - 1.0) 05/14/18 23:00 Ur Leukocyte Esterase NEGATIVE (NEGATIVE) 05/14/18 23:00 Urine RBC 10-25 /hpf (0-5) H 05/14/18 23:00 Urine WBC 2-5 /hpf (0-5) 05/14/18 23:00 Ur Epithelial Cells RARE /lpf (FEW) 05/14/18 23:00 Urine Bacteria NONE SEEN /hpf (NONE SEEN) 05/14/18 23:00 Urine Mucus FEW /lpf (FEW) 05/14/18 23:00 Urine Opiates Screen NEGATIVE (NEGATIVE) 05/14/18 23:00 Urine Methadone Screen NEGATIVE (NEGATIVE) 05/14/18 23:00 Ur Barbiturates Screen NEGATIVE (NEGATIVE) 05/14/18 23:00 Valproic Acid 14.7 ug/mL (50.0-100.0) L 05/14/18 22:40 Ur Tricyclics Screen POSITIVE (NEGATIVE) H 05/14/18 23:00 Ur Phencyclidine Scrn NEGATIVE (NEGATIVE) 05/14/18 23:00 Amphetamines Screen NEGATIVE (NEGATIVE) 05/14/18 23:00 U Methamphetamines Scrn NEGATIVE (NEGATIVE) 05/14/18 23:00 U Benzodiazepines Scrn NEGATIVE (NEGATIVE) 05/14/18 23:00 U Cocaine Metab Screen NEGATIVE (NEGATIVE) 05/14/18 23:00 U Cannabinoids Screen NEGATIVE (NEGATIVE) 05/14/18 23:00 - Physical Exam Vitals and I&O: Vital Signs Temp 97.6 F 05/18/18 08:39 Pulse 73 05/18/18 08:39 Resp 17 05/18/18 08:39 BP 119/65 05/18/18 08:39 Pulse Ox 97 05/18/18 08:39 Intake & Output 05/17/18 05/18/18 05/18/18 18:59 06:59 18:59 Intake Total 1000 Balance 1000 Weight (lbs) 53.524 kg Intake: Intake, IV Amount 1000 D5-0.45NS 1,000 ml @ 75 1000 mls/hr IV .[id number] [facility] Rx #:[id number] Other: # Voids 2 Weight Source Bedscale Active Medications: Current Medications Divalproex Sodium (Depakote Dr) 125 mg PO Q12HR JOHN Stop: 07/15/18 20:59 Last Admin: 05/18/18 09:01 Dose: Not Given Haloperidol (Haldol) 2 mg PO BID PRN; Protocol PRN Reason: Agitation Stop: 07/15/18 16:59 Haloperidol (Haldol) 2 mg PO BID JOHN Stop: 07/16/18 08:59 Last Admin: 05/18/18 09:02 Dose: Not Given Dextrose/Sodium Chloride (D5-0.45ns) 1,000 mls @ 75 mls/hr IV .[id number] JOHN Stop: 07/14/18 00:59 Last Admin: 05/17/18 20:27 Dose: 75 mls/hr Lactulose (Cephulac) 20 gm PO DAILY JOHN Stop: 07/14/18 08:59 Last Admin: 05/18/18 09:02 Dose: Not Given Levothyroxine Sodium (Synthroid) 0.025 mg PO QDAC JOHN Stop: 07/14/18 08:59 Last Admin: 05/18/18 09:01 Dose: Not Given Lorazepam (Ativan) 0.5 mg PO BID PRN; Protocol PRN Reason: Anxiety Stop: 07/15/18 11:15 Miscellaneous (Cabergoline [Cabergoline]) 0.25 mg PO QTHUR [facility] Stop: 07/14/18 07:59 Miscellaneous (Cabergoline [Cabergoline]) 0.5 mg PO QMON [facility] Stop: 07/14/18 07:59 Ondansetron HCl (Zofran) 4 mg IV Q6H PRN PRN Reason: Nausea / Vomiting Stop: 07/14/18 09:50 Last Admin: 05/17/18 22:57 Dose: 4 mg Polyethylene Glycol (Miralax) 17 gm PO DAILY JOHN Stop: 07/16/18 13:14 Last Admin: 05/18/18 09:02 Dose: Not Given Quetiapine Fumarate (Seroquel) 150 mg PO HS [facility]; Protocol Stop: 07/14/18 20:59 Last Admin: 05/17/18 23:10 Dose: Not Given Sodium Phosphate (Fleet Enema) 135 ml RC X1 ONE Stop: 05/18/18 09:31 Vitamin D (Vitamin D3) 2,000 iu PO DAILY [facility] Stop: 07/14/18 08:59 Last Admin: 05/18/18 09:01 Dose: Not Given General: Alert, No acute distress HEENT: Atraumatic, PERRLA Cardiovascular: Regular rate, Normal S1, Normal S2 Lungs: Clear to auscultation, Normal air movement Abdomen: Bowel sounds, Soft Assessment/Plan - Assessment Assessment: 1. Refusal to eat 2. MR 3. constipation -trial of miralax/magnesium citrate to help patient have a bm -Abdomen soft, unclear if psychosis could be playing into this -Optimize psychiatric condition -discussed with mom -trial of enema since pt refusing bowel regimen
[2018-05-18] MEDS ORDERED: Fleet Enema 135 mL RC ONE (09:30)
--- NOTE | 2018-05-18 18:48 | General Progress Note ---
Subjective - Review of Systems Subjective: patient awake admitted with failure to thrive is mentally challenge Objective - Results Result Diagrams: 05/15/18 06:10 05/15/18 06:10 Recent Labs: Laboratory Last Values WBC 6.6 Th/cmm (4.8-10.8) 05/15/18 06:10 RBC 3.34 Mil/cmm (3.80-5.10) L 05/15/18 06:10 Hgb 11.8 gm/dL (12-16) L 05/15/18 06:10 Hct 34.0 % (41.0-60) L 05/15/18 06:10 MCV 101.9 fl (81-100) H 05/15/18 06:10 MCH 35.2 pg (27.0-31.0) H 05/15/18 06:10 MCHC Differential 34.6 pg (28.0-36.0) 05/15/18 06:10 RDW 13.8 % (11.5-20.0) 05/15/18 06:10 Plt Count 261 Th/cmm (150-400) 05/15/18 06:10 MPV 7.0 fl 05/15/18 06:10 Add Manual Diff YES 05/15/18 06:10 Band Neutrophils % 4 % (0-10) 05/15/18 06:10 Neutrophils (Manual) 52 % (40-80) 05/15/18 06:10 Lymphocytes 30 % (20-50) 05/15/18 06:10 Monocytes 14 % (2-10) H 05/15/18 06:10 Eosinophils 0 % (0-5) 05/15/18 06:10 Basophils 0 % (0-3) 05/15/18 06:10 Platelet Estimate ADEQUATE (NORMAL) 05/14/18 22:40 Platelet Morphology NORMAL (NORMAL) 05/14/18 22:40 RBC Morph Micro Appear NORMAL (NORMAL) 05/14/18 22:40 Sodium 136 mEq/L (136-145) 05/15/18 06:10 Potassium 3.7 mEq/L (3.5-5.1) 05/15/18 06:10 Chloride 105 mEq/L (98-107) 05/15/18 06:10 Carbon Dioxide 26.0 mEq/L (21.0-31.0) 05/15/18 06:10 Anion Gap 8.7 (7.0-16.0) 05/15/18 06:10 BUN 12 mg/dL (7-25) 05/15/18 06:10 Creatinine 0.6 mg/dL (0.6-1.2) 05/15/18 06:10 Est GFR ( Amer) > 60.0 ml/min (>90) 05/15/18 06:10 Est GFR (Non-Af Amer) > 60.0 ml/min 05/15/18 06:10 BUN/Creatinine Ratio 20.0 05/15/18 06:10 Glucose 120 mg/dL (70-105) H 05/15/18 06:10 Calcium 8.8 mg/dL (8.6-10.3) 05/15/18 06:10 Phosphorus 3.6 mg/dL (2.5-5.0) 05/14/18 22:40 Magnesium 1.8 mg/dL (1.9-2.7) L 05/14/18 22:40 Total Bilirubin 0.2 mg/dL (0.3-1.0) L 05/15/18 06:10 AST 18 U/L (13-39) 05/15/18 06:10 ALT 12 U/L (7-52) 05/15/18 06:10 Alkaline Phosphatase 49 U/L (34-104) 05/15/18 06:10 Total Protein 5.6 gm/dL (6.0-8.3) L 05/15/18 06:10 Albumin 3.0 gm/dL (3.7-5.3) L 05/15/18 06:10 Globulin 2.6 gm/dL 05/15/18 06:10 Albumin/Globulin Ratio 1.2 (1.0-1.8) 05/15/18 06:10 Triglycerides 75 mg/dL (<150) 05/15/18 06:10 Cholesterol 147 mg/dL (<200) 05/15/18 06:10 LDL Cholesterol Direct 67 mg/dL (75-193) L 05/15/18 06:10 HDL Cholesterol 63 mg/dL (23-92) 05/15/18 06:10 TSH 3.28 uIU/ml (0.34-5.60) 05/15/18 06:10 Urine Source CATH 05/14/18 23:00 Urine Color YELLOW 05/14/18 23:00 Urine Clarity CLEAR (CLEAR) 05/14/18 23:00 Urine pH 7.0 (4.6 - 8.0) 05/14/18 23:00 Ur Specific [place] 1.015 (1.005-1.030) 05/14/18 23:00 Urine Protein 30 mg/dL (NEGATIVE) H 05/14/18 23:00 Urine Glucose (UA) NEGATIVE mg/dL (NEGATIVE) 05/14/18 23:00 Urine Ketones 40 mg/dL (NEGATIVE) H 05/14/18 23:00 Urine Blood LARGE (NEGATIVE) H 05/14/18 23:00 Urine Nitrate NEGATIVE (NEGATIVE) 05/14/18 23:00 Urine Bilirubin NEGATIVE (NEGATIVE) 05/14/18 23:00 Urine Urobilinogen 1.0 E.U./dL (0.2 - 1.0) 05/14/18 23:00 Ur Leukocyte Esterase NEGATIVE (NEGATIVE) 05/14/18 23:00 Urine RBC 10-25 /hpf (0-5) H 05/14/18 23:00 Urine WBC 2-5 /hpf (0-5) 05/14/18 23:00 Ur Epithelial Cells RARE /lpf (FEW) 05/14/18 23:00 Urine Bacteria NONE SEEN /hpf (NONE SEEN) 05/14/18 23:00 Urine Mucus FEW /lpf (FEW) 05/14/18 23:00 Urine Opiates Screen NEGATIVE (NEGATIVE) 05/14/18 23:00 Urine Methadone Screen NEGATIVE (NEGATIVE) 05/14/18 23:00 Ur Barbiturates Screen NEGATIVE (NEGATIVE) 05/14/18 23:00 Valproic Acid 14.7 ug/mL (50.0-100.0) L 05/14/18 22:40 Ur Tricyclics Screen POSITIVE (NEGATIVE) H 05/14/18 23:00 Ur Phencyclidine Scrn NEGATIVE (NEGATIVE) 05/14/18 23:00 Amphetamines Screen NEGATIVE (NEGATIVE) 05/14/18 23:00 U Methamphetamines Scrn NEGATIVE (NEGATIVE) 05/14/18 23:00 U Benzodiazepines Scrn NEGATIVE (NEGATIVE) 05/14/18 23:00 U Cocaine Metab Screen NEGATIVE (NEGATIVE) 05/14/18 23:00 U Cannabinoids Screen NEGATIVE (NEGATIVE) 05/14/18 23:00 - Physical Exam Vitals and I&O: Vital Signs Temp 98.1 F 05/18/18 11:55 Pulse 84 05/18/18 11:55 Resp 18 05/18/18 11:55 BP 144/107 05/18/18 11:55 Pulse Ox 96 05/18/18 11:55 Intake & Output 05/17/18 05/18/18 05/18/18 18:59 06:59 18:59 Intake Total 1000 0 Output Total 50 Balance 1000 -50 Weight (lbs) 53.524 kg Intake: Intake, IV Amount 1000 D5-0.45NS 1,000 ml @ 75 1000 mls/hr IV .[id number] [facility] Rx #:[id number] Oral 0 Output: Gastric Drainage 50 Other: # Voids 3 # Bowel Movements 1 Weight Source Bedscale Active Medications: Current Medications Divalproex Sodium (Depakote Dr) 125 mg PO Q12HR JOHN Stop: 07/15/18 20:59 Last Admin: 05/18/18 09:01 Dose: Not Given Haloperidol (Haldol) 2 mg PO BID PRN; Protocol PRN Reason: Agitation Stop: 07/15/18 16:59 Haloperidol (Haldol) 2 mg PO BID JOHN Stop: 07/16/18 08:59 Last Admin: 05/18/18 17:15 Dose: Not Given Dextrose/Sodium Chloride (D5-0.45ns) 1,000 mls @ 75 mls/hr IV .[id number] JOHN Stop: 07/14/18 00:59 Last Admin: 05/17/18 20:27 Dose: 75 mls/hr Lactulose (Cephulac) 20 gm PO DAILY JOHN Stop: 07/14/18 08:59 Last Admin: 05/18/18 09:02 Dose: Not Given Levothyroxine Sodium (Synthroid) 0.025 mg PO QDAC JOHN Stop: 07/14/18 08:59 Last Admin: 05/18/18 09:01 Dose: Not Given Lorazepam (Ativan) 0.5 mg PO BID PRN; Protocol PRN Reason: Anxiety Stop: 07/15/18 11:15 Miscellaneous (Cabergoline [Cabergoline]) 0.25 mg PO QTHUR [facility] Stop: 07/14/18 07:59 Miscellaneous (Cabergoline [Cabergoline]) 0.5 mg PO QMON [facility] Stop: 07/14/18 07:59 Ondansetron HCl (Zofran) 4 mg IV Q6H PRN PRN Reason: Nausea / Vomiting Stop: 07/14/18 09:50 Last Admin: 05/18/18 15:47 Dose: 4 mg Polyethylene Glycol (Miralax) 17 gm PO DAILY [facility] Stop: 07/16/18 13:14 Last Admin: 05/18/18 09:02 Dose: Not Given Quetiapine Fumarate (Seroquel) 150 mg PO HS [facility]; Protocol Stop: 07/14/18 20:59 Last Admin: 05/17/18 23:10 Dose: Not Given Vitamin D (Vitamin D3) 2,000 iu PO DAILY [facility] Stop: 07/14/18 08:59 Last Admin: 05/18/18 09:01 Dose: Not Given General: Alert, No acute distress HEENT: Atraumatic, PERRLA Cardiovascular: Regular rate, Normal S1, Normal S2 Lungs: Clear to auscultation, Normal air movement Abdomen: Bowel sounds, Soft Nutritional Asmnt/Malnutr-PDOC - Dietary Evaluation Malnutrition Findings (Please click <Entered> for more info): Nutritional Asmnt/Malnutrition Start: 05/17/18 11: 40 Text: Status: Complete Freq: Protocol: Document 05/17/18 11:40 LCHENG (Rec: 05/17/18 11:51 [email or web address] [email or web address]) Nutritional Asmnt/Malnutrition Patient General Information Nutritional Screening High Risk Diagnosis FTT Pertinent Medical Hx/Surgical Hx mental retardation, hypothyroidism. Subjective Information Pt was not able to communicate d/t mental status. Per nurse, pt has been refusing to eat. Per EMR, PO intake 0% of most meals. Swallow eval scheduled for today. Current Diet Order/ Nutrition Support full liquid. Pertinent Medications D5-0.45ns, synthroid, seroquel , vit D3 Pertinent Labs 05/15 Glucose 120, alb 3.0 Nutritional Hx/Data Height 1.55 m Height (Calculated Centimeters) 154.9 Current Weight (lbs) 53.524 kg Weight (Calculated Kilograms) 53.5 Weight (Calculated Grams) 24762.9 Body Mass Index (BMI) 22.3 Weight Status Approriate GI Symptoms GI Symptoms None Last BM not indicated Skin Integrity/Comment: abrasion to left lower knee and right lower leg Current %PO Negligible < 25% Estimated Nutritional Goals BEE in Kcals: Using Current wt Calories/Kcals/Kg 25-30 Kcals Calculated 4374-9726 Protein: Using Current wt Protein g/k-1.2 Protein Calculated 54-65 Fluid: ml 1350-1620ml (1ml/kcal) Nutritional Problem 1. Problem Problem inadequete food intake Etiology possible mental status/poor appetite Signs/Symptoms: PO intake <25% Intervention/Recommendation Comments 1. Wait for swallow eval result. Advance diet per ST recommendation. Assist pt with meals. MD to consider appetite stimulant as needed. 2. Monitor PO intake, wt, labs and skin integrity 3. F/U as high risk in 2-3 days, 05/19-05/20 Expected Outcomes/Goals Expected Outcomes/Goals 1. PO intake to meet at least 75% of nutritional needs. 2. Wt stability, skin to remain intact, labs to approach WNL.
--- NOTE | 2018-05-18 18:49 | General Progress Note ---
Subjective - Review of Systems Subjective: patient awake admitted with failure to thrive is mentally challenge Objective - Results Result Diagrams: 05/15/18 06:10 05/15/18 06:10 Recent Labs: Laboratory Last Values WBC 6.6 Th/cmm (4.8-10.8) 05/15/18 06:10 RBC 3.34 Mil/cmm (3.80-5.10) L 05/15/18 06:10 Hgb 11.8 gm/dL (12-16) L 05/15/18 06:10 Hct 34.0 % (41.0-60) L 05/15/18 06:10 MCV 101.9 fl (81-100) H 05/15/18 06:10 MCH 35.2 pg (27.0-31.0) H 05/15/18 06:10 MCHC Differential 34.6 pg (28.0-36.0) 05/15/18 06:10 RDW 13.8 % (11.5-20.0) 05/15/18 06:10 Plt Count 261 Th/cmm (150-400) 05/15/18 06:10 MPV 7.0 fl 05/15/18 06:10 Add Manual Diff YES 05/15/18 06:10 Band Neutrophils % 4 % (0-10) 05/15/18 06:10 Neutrophils (Manual) 52 % (40-80) 05/15/18 06:10 Lymphocytes 30 % (20-50) 05/15/18 06:10 Monocytes 14 % (2-10) H 05/15/18 06:10 Eosinophils 0 % (0-5) 05/15/18 06:10 Basophils 0 % (0-3) 05/15/18 06:10 Platelet Estimate ADEQUATE (NORMAL) 05/14/18 22:40 Platelet Morphology NORMAL (NORMAL) 05/14/18 22:40 RBC Morph Micro Appear NORMAL (NORMAL) 05/14/18 22:40 Sodium 136 mEq/L (136-145) 05/15/18 06:10 Potassium 3.7 mEq/L (3.5-5.1) 05/15/18 06:10 Chloride 105 mEq/L (98-107) 05/15/18 06:10 Carbon Dioxide 26.0 mEq/L (21.0-31.0) 05/15/18 06:10 Anion Gap 8.7 (7.0-16.0) 05/15/18 06:10 BUN 12 mg/dL (7-25) 05/15/18 06:10 Creatinine 0.6 mg/dL (0.6-1.2) 05/15/18 06:10 Est GFR ( Amer) > 60.0 ml/min (>90) 05/15/18 06:10 Est GFR (Non-Af Amer) > 60.0 ml/min 05/15/18 06:10 BUN/Creatinine Ratio 20.0 05/15/18 06:10 Glucose 120 mg/dL (70-105) H 05/15/18 06:10 Calcium 8.8 mg/dL (8.6-10.3) 05/15/18 06:10 Phosphorus 3.6 mg/dL (2.5-5.0) 05/14/18 22:40 Magnesium 1.8 mg/dL (1.9-2.7) L 05/14/18 22:40 Total Bilirubin 0.2 mg/dL (0.3-1.0) L 05/15/18 06:10 AST 18 U/L (13-39) 05/15/18 06:10 ALT 12 U/L (7-52) 05/15/18 06:10 Alkaline Phosphatase 49 U/L (34-104) 05/15/18 06:10 Total Protein 5.6 gm/dL (6.0-8.3) L 05/15/18 06:10 Albumin 3.0 gm/dL (3.7-5.3) L 05/15/18 06:10 Globulin 2.6 gm/dL 05/15/18 06:10 Albumin/Globulin Ratio 1.2 (1.0-1.8) 05/15/18 06:10 Triglycerides 75 mg/dL (<150) 05/15/18 06:10 Cholesterol 147 mg/dL (<200) 05/15/18 06:10 LDL Cholesterol Direct 67 mg/dL (75-193) L 05/15/18 06:10 HDL Cholesterol 63 mg/dL (23-92) 05/15/18 06:10 TSH 3.28 uIU/ml (0.34-5.60) 05/15/18 06:10 Urine Source CATH 05/14/18 23:00 Urine Color YELLOW 05/14/18 23:00 Urine Clarity CLEAR (CLEAR) 05/14/18 23:00 Urine pH 7.0 (4.6 - 8.0) 05/14/18 23:00 Ur Specific [place] 1.015 (1.005-1.030) 05/14/18 23:00 Urine Protein 30 mg/dL (NEGATIVE) H 05/14/18 23:00 Urine Glucose (UA) NEGATIVE mg/dL (NEGATIVE) 05/14/18 23:00 Urine Ketones 40 mg/dL (NEGATIVE) H 05/14/18 23:00 Urine Blood LARGE (NEGATIVE) H 05/14/18 23:00 Urine Nitrate NEGATIVE (NEGATIVE) 05/14/18 23:00 Urine Bilirubin NEGATIVE (NEGATIVE) 05/14/18 23:00 Urine Urobilinogen 1.0 E.U./dL (0.2 - 1.0) 05/14/18 23:00 Ur Leukocyte Esterase NEGATIVE (NEGATIVE) 05/14/18 23:00 Urine RBC 10-25 /hpf (0-5) H 05/14/18 23:00 Urine WBC 2-5 /hpf (0-5) 05/14/18 23:00 Ur Epithelial Cells RARE /lpf (FEW) 05/14/18 23:00 Urine Bacteria NONE SEEN /hpf (NONE SEEN) 05/14/18 23:00 Urine Mucus FEW /lpf (FEW) 05/14/18 23:00 Urine Opiates Screen NEGATIVE (NEGATIVE) 05/14/18 23:00 Urine Methadone Screen NEGATIVE (NEGATIVE) 05/14/18 23:00 Ur Barbiturates Screen NEGATIVE (NEGATIVE) 05/14/18 23:00 Valproic Acid 14.7 ug/mL (50.0-100.0) L 05/14/18 22:40 Ur Tricyclics Screen POSITIVE (NEGATIVE) H 05/14/18 23:00 Ur Phencyclidine Scrn NEGATIVE (NEGATIVE) 05/14/18 23:00 Amphetamines Screen NEGATIVE (NEGATIVE) 05/14/18 23:00 U Methamphetamines Scrn NEGATIVE (NEGATIVE) 05/14/18 23:00 U Benzodiazepines Scrn NEGATIVE (NEGATIVE) 05/14/18 23:00 U Cocaine Metab Screen NEGATIVE (NEGATIVE) 05/14/18 23:00 U Cannabinoids Screen NEGATIVE (NEGATIVE) 05/14/18 23:00 - Physical Exam Vitals and I&O: Vital Signs Temp 98.1 F 05/18/18 11:55 Pulse 84 05/18/18 11:55 Resp 18 05/18/18 11:55 BP 144/107 05/18/18 11:55 Pulse Ox 96 05/18/18 11:55 Intake & Output 05/17/18 05/18/18 05/18/18 18:59 06:59 18:59 Intake Total 1000 0 Output Total 50 Balance 1000 -50 Weight (lbs) 53.524 kg Intake: Intake, IV Amount 1000 D5-0.45NS 1,000 ml @ 75 1000 mls/hr IV .[id number] [facility] Rx #:[id number] Oral 0 Output: Gastric Drainage 50 Other: # Voids 3 # Bowel Movements 1 Weight Source Bedscale Active Medications: Current Medications Divalproex Sodium (Depakote Dr) 125 mg PO Q12HR JOHN Stop: 07/15/18 20:59 Last Admin: 05/18/18 09:01 Dose: Not Given Haloperidol (Haldol) 2 mg PO BID PRN; Protocol PRN Reason: Agitation Stop: 07/15/18 16:59 Haloperidol (Haldol) 2 mg PO BID JOHN Stop: 07/16/18 08:59 Last Admin: 05/18/18 17:15 Dose: Not Given Dextrose/Sodium Chloride (D5-0.45ns) 1,000 mls @ 75 mls/hr IV .[id number] JOHN Stop: 07/14/18 00:59 Last Admin: 05/17/18 20:27 Dose: 75 mls/hr Lactulose (Cephulac) 20 gm PO DAILY JOHN Stop: 07/14/18 08:59 Last Admin: 05/18/18 09:02 Dose: Not Given Levothyroxine Sodium (Synthroid) 0.025 mg PO QDAC JOHN Stop: 07/14/18 08:59 Last Admin: 05/18/18 09:01 Dose: Not Given Lorazepam (Ativan) 0.5 mg PO BID PRN; Protocol PRN Reason: Anxiety Stop: 07/15/18 11:15 Miscellaneous (Cabergoline [Cabergoline]) 0.25 mg PO QTHUR [facility] Stop: 07/14/18 07:59 Miscellaneous (Cabergoline [Cabergoline]) 0.5 mg PO QMON [facility] Stop: 07/14/18 07:59 Ondansetron HCl (Zofran) 4 mg IV Q6H PRN PRN Reason: Nausea / Vomiting Stop: 07/14/18 09:50 Last Admin: 05/18/18 15:47 Dose: 4 mg Polyethylene Glycol (Miralax) 17 gm PO DAILY [facility] Stop: 07/16/18 13:14 Last Admin: 05/18/18 09:02 Dose: Not Given Quetiapine Fumarate (Seroquel) 150 mg PO HS [facility]; Protocol Stop: 07/14/18 20:59 Last Admin: 05/17/18 23:10 Dose: Not Given Vitamin D (Vitamin D3) 2,000 iu PO DAILY [facility] Stop: 07/14/18 08:59 Last Admin: 05/18/18 09:01 Dose: Not Given General: Alert, No acute distress HEENT: Atraumatic, PERRLA Cardiovascular: Regular rate, Normal S1, Normal S2 Lungs: Clear to auscultation, Normal air movement Abdomen: Bowel sounds, Soft Nutritional Asmnt/Malnutr-PDOC - Dietary Evaluation Malnutrition Findings (Please click <Entered> for more info): Nutritional Asmnt/Malnutrition Start: 05/17/18 11: 40 Text: Status: Complete Freq: Protocol: Document 05/17/18 11:40 LCHENG (Rec: 05/17/18 11:51 [email or web address] [email or web address]) Nutritional Asmnt/Malnutrition Patient General Information Nutritional Screening High Risk Diagnosis FTT Pertinent Medical Hx/Surgical Hx mental retardation, hypothyroidism. Subjective Information Pt was not able to communicate d/t mental status. Per nurse, pt has been refusing to eat. Per EMR, PO intake 0% of most meals. Swallow eval scheduled for today. Current Diet Order/ Nutrition Support full liquid. Pertinent Medications D5-0.45ns, synthroid, seroquel , vit D3 Pertinent Labs 05/15 Glucose 120, alb 3.0 Nutritional Hx/Data Height 1.55 m Height (Calculated Centimeters) 154.9 Current Weight (lbs) 53.524 kg Weight (Calculated Kilograms) 53.5 Weight (Calculated Grams) 05125.9 Body Mass Index (BMI) 22.3 Weight Status Approriate GI Symptoms GI Symptoms None Last BM not indicated Skin Integrity/Comment: abrasion to left lower knee and right lower leg Current %PO Negligible < 25% Estimated Nutritional Goals BEE in Kcals: Using Current wt Calories/Kcals/Kg 25-30 Kcals Calculated 7224-4835 Protein: Using Current wt Protein g/k-1.2 Protein Calculated 54-65 Fluid: ml 1350-1620ml (1ml/kcal) Nutritional Problem 1. Problem Problem inadequete food intake Etiology possible mental status/poor appetite Signs/Symptoms: PO intake <25% Intervention/Recommendation Comments 1. Wait for swallow eval result. Advance diet per ST recommendation. Assist pt with meals. MD to consider appetite stimulant as needed. 2. Monitor PO intake, wt, labs and skin integrity 3. F/U as high risk in 2-3 days, 05/19-05/20 Expected Outcomes/Goals Expected Outcomes/Goals 1. PO intake to meet at least 75% of nutritional needs. 2. Wt stability, skin to remain intact, labs to approach WNL.
[2018-05-18] MEDS: D5-0.45NS 1,000 ML IV SCH (23:46)
[2018-05-19] MEDS: POLYETHYLENE GLYCOL 3350 17 GM PACK PO SCH (08:28)
[2018-05-19] MEDS: Lactulose 10 Gm/15 mL 30mL UDC PO SCH (08:28)
[2018-05-19] MEDS: Levothyroxine 0.025 Mg Tab PO SCH (08:28)
[2018-05-19] MEDS: Vitamin D3 2,000 IU SGL PO SCH (08:28)
--- NOTE | 2018-05-19 10:02 | GI Progress Note ---
Subjective - Review of Systems Service Date: 05/19/18 Subjective: Pt refusing all oral intake, STILL Objective - Results Result Diagrams: 05/15/18 06:10 05/15/18 06:10 Recent Labs: Laboratory Last Values WBC 6.6 Th/cmm (4.8-10.8) 05/15/18 06:10 RBC 3.34 Mil/cmm (3.80-5.10) L 05/15/18 06:10 Hgb 11.8 gm/dL (12-16) L 05/15/18 06:10 Hct 34.0 % (41.0-60) L 05/15/18 06:10 MCV 101.9 fl (81-100) H 05/15/18 06:10 MCH 35.2 pg (27.0-31.0) H 05/15/18 06:10 MCHC Differential 34.6 pg (28.0-36.0) 05/15/18 06:10 RDW 13.8 % (11.5-20.0) 05/15/18 06:10 Plt Count 261 Th/cmm (150-400) 05/15/18 06:10 MPV 7.0 fl 05/15/18 06:10 Add Manual Diff YES 05/15/18 06:10 Band Neutrophils % 4 % (0-10) 05/15/18 06:10 Neutrophils (Manual) 52 % (40-80) 05/15/18 06:10 Lymphocytes 30 % (20-50) 05/15/18 06:10 Monocytes 14 % (2-10) H 05/15/18 06:10 Eosinophils 0 % (0-5) 05/15/18 06:10 Basophils 0 % (0-3) 05/15/18 06:10 Platelet Estimate ADEQUATE (NORMAL) 05/14/18 22:40 Platelet Morphology NORMAL (NORMAL) 05/14/18 22:40 RBC Morph Micro Appear NORMAL (NORMAL) 05/14/18 22:40 Sodium 136 mEq/L (136-145) 05/15/18 06:10 Potassium 3.7 mEq/L (3.5-5.1) 05/15/18 06:10 Chloride 105 mEq/L (98-107) 05/15/18 06:10 Carbon Dioxide 26.0 mEq/L (21.0-31.0) 05/15/18 06:10 Anion Gap 8.7 (7.0-16.0) 05/15/18 06:10 BUN 12 mg/dL (7-25) 05/15/18 06:10 Creatinine 0.6 mg/dL (0.6-1.2) 05/15/18 06:10 Est GFR ( Amer) > 60.0 ml/min (>90) 05/15/18 06:10 Est GFR (Non-Af Amer) > 60.0 ml/min 05/15/18 06:10 BUN/Creatinine Ratio 20.0 05/15/18 06:10 Glucose 120 mg/dL (70-105) H 05/15/18 06:10 Calcium 8.8 mg/dL (8.6-10.3) 05/15/18 06:10 Phosphorus 3.6 mg/dL (2.5-5.0) 05/14/18 22:40 Magnesium 1.8 mg/dL (1.9-2.7) L 05/14/18 22:40 Total Bilirubin 0.2 mg/dL (0.3-1.0) L 05/15/18 06:10 AST 18 U/L (13-39) 05/15/18 06:10 ALT 12 U/L (7-52) 05/15/18 06:10 Alkaline Phosphatase 49 U/L (34-104) 05/15/18 06:10 Total Protein 5.6 gm/dL (6.0-8.3) L 05/15/18 06:10 Albumin 3.0 gm/dL (3.7-5.3) L 05/15/18 06:10 Globulin 2.6 gm/dL 05/15/18 06:10 Albumin/Globulin Ratio 1.2 (1.0-1.8) 05/15/18 06:10 Triglycerides 75 mg/dL (<150) 05/15/18 06:10 Cholesterol 147 mg/dL (<200) 05/15/18 06:10 LDL Cholesterol Direct 67 mg/dL (75-193) L 05/15/18 06:10 HDL Cholesterol 63 mg/dL (23-92) 05/15/18 06:10 TSH 3.28 uIU/ml (0.34-5.60) 05/15/18 06:10 Urine Source CATH 05/14/18 23:00 Urine Color YELLOW 05/14/18 23:00 Urine Clarity CLEAR (CLEAR) 05/14/18 23:00 Urine pH 7.0 (4.6 - 8.0) 05/14/18 23:00 Ur Specific [place] 1.015 (1.005-1.030) 05/14/18 23:00 Urine Protein 30 mg/dL (NEGATIVE) H 05/14/18 23:00 Urine Glucose (UA) NEGATIVE mg/dL (NEGATIVE) 05/14/18 23:00 Urine Ketones 40 mg/dL (NEGATIVE) H 05/14/18 23:00 Urine Blood LARGE (NEGATIVE) H 05/14/18 23:00 Urine Nitrate NEGATIVE (NEGATIVE) 05/14/18 23:00 Urine Bilirubin NEGATIVE (NEGATIVE) 05/14/18 23:00 Urine Urobilinogen 1.0 E.U./dL (0.2 - 1.0) 05/14/18 23:00 Ur Leukocyte Esterase NEGATIVE (NEGATIVE) 05/14/18 23:00 Urine RBC 10-25 /hpf (0-5) H 05/14/18 23:00 Urine WBC 2-5 /hpf (0-5) 05/14/18 23:00 Ur Epithelial Cells RARE /lpf (FEW) 05/14/18 23:00 Urine Bacteria NONE SEEN /hpf (NONE SEEN) 05/14/18 23:00 Urine Mucus FEW /lpf (FEW) 05/14/18 23:00 Urine Opiates Screen NEGATIVE (NEGATIVE) 05/14/18 23:00 Urine Methadone Screen NEGATIVE (NEGATIVE) 05/14/18 23:00 Ur Barbiturates Screen NEGATIVE (NEGATIVE) 05/14/18 23:00 Valproic Acid 14.7 ug/mL (50.0-100.0) L 05/14/18 22:40 Ur Tricyclics Screen POSITIVE (NEGATIVE) H 05/14/18 23:00 Ur Phencyclidine Scrn NEGATIVE (NEGATIVE) 05/14/18 23:00 Amphetamines Screen NEGATIVE (NEGATIVE) 05/14/18 23:00 U Methamphetamines Scrn NEGATIVE (NEGATIVE) 05/14/18 23:00 U Benzodiazepines Scrn NEGATIVE (NEGATIVE) 05/14/18 23:00 U Cocaine Metab Screen NEGATIVE (NEGATIVE) 05/14/18 23:00 U Cannabinoids Screen NEGATIVE (NEGATIVE) 05/14/18 23:00 - Physical Exam Vitals and I&O: Vital Signs Temp 98.5 F 05/19/18 08:00 Pulse 71 05/19/18 08:00 Resp 18 05/19/18 08:00 BP 112/67 05/19/18 08:00 Pulse Ox 100 05/19/18 08:00 Intake & Output 05/18/18 05/19/18 05/19/18 18:59 06:59 18:59 Intake Total 1000 Output Total 50 Balance 950 Weight (lbs) 53.524 kg 53.524 kg Intake: Intake, IV Amount 1000 D5-0.45NS 1,000 ml @ 75 1000 mls/hr IV .[id number] [facility] Rx #:[id number] Oral 0 Output: Gastric Drainage 50 Other: # Voids 3 3 # Bowel Movements 1 Weight Source Bedscale Bedscale Active Medications: Current Medications Divalproex Sodium (Depakote Dr) 125 mg PO Q12HR JOHN Stop: 07/15/18 20:59 Last Admin: 05/19/18 08:29 Dose: Not Given Haloperidol (Haldol) 2 mg PO BID PRN; Protocol PRN Reason: Agitation Stop: 07/15/18 16:59 Haloperidol (Haldol) 2 mg PO BID JOHN Stop: 07/16/18 08:59 Last Admin: 05/19/18 08:28 Dose: Not Given Dextrose/Sodium Chloride (D5-0.45ns) 1,000 mls @ 75 mls/hr IV .[id number] JOHN Stop: 07/14/18 00:59 Last Admin: 05/18/18 23:46 Dose: 75 mls/hr Lactulose (Cephulac) 20 gm PO DAILY JOHN Stop: 07/14/18 08:59 Last Admin: 05/19/18 08:28 Dose: Not Given Levothyroxine Sodium (Synthroid) 0.025 mg PO QDAC JOHN Stop: 07/14/18 08:59 Last Admin: 05/19/18 08:28 Dose: Not Given Lorazepam (Ativan) 0.5 mg PO BID PRN; Protocol PRN Reason: Anxiety Stop: 07/15/18 11:15 Miscellaneous (Cabergoline [Cabergoline]) 0.25 mg PO QTHUR JOHN Stop: 07/14/18 07:59 Miscellaneous (Cabergoline [Cabergoline]) 0.5 mg PO QMON JOHN Stop: 07/14/18 07:59 Ondansetron HCl (Zofran) 4 mg IV Q6H PRN PRN Reason: Nausea / Vomiting Stop: 07/14/18 09:50 Last Admin: 05/19/18 05:43 Dose: 4 mg Polyethylene Glycol (Miralax) 17 gm PO DAILY [facility] Stop: 07/16/18 13:14 Last Admin: 05/19/18 08:28 Dose: Not Given Quetiapine Fumarate (Seroquel) 150 mg PO HS [facility]; Protocol Stop: 07/14/18 20:59 Last Admin: 05/18/18 20:31 Dose: Not Given Vitamin D (Vitamin D3) 2,000 iu PO DAILY [facility] Stop: 07/14/18 08:59 Last Admin: 05/19/18 08:28 Dose: Not Given General: Alert, No acute distress HEENT: Atraumatic, PERRLA Cardiovascular: Regular rate, Normal S1, Normal S2 Lungs: Clear to auscultation, Normal air movement Abdomen: Bowel sounds, Soft Assessment/Plan - Assessment Assessment: 1. Refusal to eat 2. MR 3. constipation -Discussed with mom at the bedside -Check RUQ U/S -Trial of Reglan -Mother prefers to look for cause, does not want a G tube -Check LFTs in AM
--- NOTE | 2018-05-19 13:45 | Diagnostic Imaging Report ---
Ultrasound abdomen HISTORY: Abdominal pain, failure to provide COMPARISON: None Technique: Sonography of the abdomen was performed in multiple planes. FINDINGS: Exam is limited due to bowel gas and patient's medical condition. The liver demonstrates normal echogenicity with no evidence of focal lesions. The liver measures 12.1 cm. No evidence of gallstones or gallbladder wall thickening. The common bile duct was not visualized. Evaluation of the pancreas is limited due to bowel gas. The right kidney measures 9.3 x 4.6 cm. No obvious focal lesions or hydronephrosis. The left kidney measures 8.8 x 5.1 cm. Small echogenic foci of the left kidney are noted. The renal margins are poorly defined on this exam. No hydronephrosis. The spleen measures 8 cm. The visualized portions of the abdominal aorta within normal limits in size. IMPRESSION: Limited exam due to bowel gas and patient's medical condition. No evidence of gallstones. The common bile is not well-visualized. No evidence of hydronephrosis. Small echogenic foci of the left kidney which may represent renal sinus fat versus less likely nonobstructing renal calculi.
--- NOTE | 2018-05-19 15:01 | General Progress Note ---
Subjective - Review of Systems Events since last encounter: refusing oral intake denies pain Subjective: patient awake admitted with failure to thrive is mentally challenge Objective - Results Result Diagrams: 05/15/18 06:10 05/15/18 06:10 Recent Labs: Laboratory Last Values WBC 6.6 Th/cmm (4.8-10.8) 05/15/18 06:10 RBC 3.34 Mil/cmm (3.80-5.10) L 05/15/18 06:10 Hgb 11.8 gm/dL (12-16) L 05/15/18 06:10 Hct 34.0 % (41.0-60) L 05/15/18 06:10 MCV 101.9 fl (81-100) H 05/15/18 06:10 MCH 35.2 pg (27.0-31.0) H 05/15/18 06:10 MCHC Differential 34.6 pg (28.0-36.0) 05/15/18 06:10 RDW 13.8 % (11.5-20.0) 05/15/18 06:10 Plt Count 261 Th/cmm (150-400) 05/15/18 06:10 MPV 7.0 fl 05/15/18 06:10 Add Manual Diff YES 05/15/18 06:10 Band Neutrophils % 4 % (0-10) 05/15/18 06:10 Neutrophils (Manual) 52 % (40-80) 05/15/18 06:10 Lymphocytes 30 % (20-50) 05/15/18 06:10 Monocytes 14 % (2-10) H 05/15/18 06:10 Eosinophils 0 % (0-5) 05/15/18 06:10 Basophils 0 % (0-3) 05/15/18 06:10 Platelet Estimate ADEQUATE (NORMAL) 05/14/18 22:40 Platelet Morphology NORMAL (NORMAL) 05/14/18 22:40 RBC Morph Micro Appear NORMAL (NORMAL) 05/14/18 22:40 Sodium 136 mEq/L (136-145) 05/15/18 06:10 Potassium 3.7 mEq/L (3.5-5.1) 05/15/18 06:10 Chloride 105 mEq/L (98-107) 05/15/18 06:10 Carbon Dioxide 26.0 mEq/L (21.0-31.0) 05/15/18 06:10 Anion Gap 8.7 (7.0-16.0) 05/15/18 06:10 BUN 12 mg/dL (7-25) 05/15/18 06:10 Creatinine 0.6 mg/dL (0.6-1.2) 05/15/18 06:10 Est GFR ( Amer) > 60.0 ml/min (>90) 05/15/18 06:10 Est GFR (Non-Af Amer) > 60.0 ml/min 05/15/18 06:10 BUN/Creatinine Ratio 20.0 05/15/18 06:10 Glucose 120 mg/dL (70-105) H 05/15/18 06:10 Calcium 8.8 mg/dL (8.6-10.3) 05/15/18 06:10 Phosphorus 3.6 mg/dL (2.5-5.0) 05/14/18 22:40 Magnesium 1.8 mg/dL (1.9-2.7) L 05/14/18 22:40 Total Bilirubin 0.2 mg/dL (0.3-1.0) L 05/15/18 06:10 AST 18 U/L (13-39) 05/15/18 06:10 ALT 12 U/L (7-52) 05/15/18 06:10 Alkaline Phosphatase 49 U/L (34-104) 05/15/18 06:10 Total Protein 5.6 gm/dL (6.0-8.3) L 05/15/18 06:10 Albumin 3.0 gm/dL (3.7-5.3) L 05/15/18 06:10 Globulin 2.6 gm/dL 05/15/18 06:10 Albumin/Globulin Ratio 1.2 (1.0-1.8) 05/15/18 06:10 Triglycerides 75 mg/dL (<150) 05/15/18 06:10 Cholesterol 147 mg/dL (<200) 05/15/18 06:10 LDL Cholesterol Direct 67 mg/dL (75-193) L 05/15/18 06:10 HDL Cholesterol 63 mg/dL (23-92) 05/15/18 06:10 TSH 3.28 uIU/ml (0.34-5.60) 05/15/18 06:10 Urine Source CATH 05/14/18 23:00 Urine Color YELLOW 05/14/18 23:00 Urine Clarity CLEAR (CLEAR) 05/14/18 23:00 Urine pH 7.0 (4.6 - 8.0) 05/14/18 23:00 Ur Specific [place] 1.015 (1.005-1.030) 05/14/18 23:00 Urine Protein 30 mg/dL (NEGATIVE) H 05/14/18 23:00 Urine Glucose (UA) NEGATIVE mg/dL (NEGATIVE) 05/14/18 23:00 Urine Ketones 40 mg/dL (NEGATIVE) H 05/14/18 23:00 Urine Blood LARGE (NEGATIVE) H 05/14/18 23:00 Urine Nitrate NEGATIVE (NEGATIVE) 05/14/18 23:00 Urine Bilirubin NEGATIVE (NEGATIVE) 05/14/18 23:00 Urine Urobilinogen 1.0 E.U./dL (0.2 - 1.0) 05/14/18 23:00 Ur Leukocyte Esterase NEGATIVE (NEGATIVE) 05/14/18 23:00 Urine RBC 10-25 /hpf (0-5) H 05/14/18 23:00 Urine WBC 2-5 /hpf (0-5) 05/14/18 23:00 Ur Epithelial Cells RARE /lpf (FEW) 05/14/18 23:00 Urine Bacteria NONE SEEN /hpf (NONE SEEN) 05/14/18 23:00 Urine Mucus FEW /lpf (FEW) 05/14/18 23:00 Urine Opiates Screen NEGATIVE (NEGATIVE) 05/14/18 23:00 Urine Methadone Screen NEGATIVE (NEGATIVE) 05/14/18 23:00 Ur Barbiturates Screen NEGATIVE (NEGATIVE) 05/14/18 23:00 Valproic Acid 14.7 ug/mL (50.0-100.0) L 05/14/18 22:40 Ur Tricyclics Screen POSITIVE (NEGATIVE) H 05/14/18 23:00 Ur Phencyclidine Scrn NEGATIVE (NEGATIVE) 05/14/18 23:00 Amphetamines Screen NEGATIVE (NEGATIVE) 05/14/18 23:00 U Methamphetamines Scrn NEGATIVE (NEGATIVE) 05/14/18 23:00 U Benzodiazepines Scrn NEGATIVE (NEGATIVE) 05/14/18 23:00 U Cocaine Metab Screen NEGATIVE (NEGATIVE) 05/14/18 23:00 U Cannabinoids Screen NEGATIVE (NEGATIVE) 05/14/18 23:00 - Physical Exam Vitals and I&O: Vital Signs Temp 98.3 F 05/19/18 12:00 Pulse 98 05/19/18 12:00 Resp 18 05/19/18 12:00 BP 116/77 05/19/18 12:00 Pulse Ox 98 05/19/18 12:00 Intake & Output 05/18/18 05/19/18 05/19/18 18:59 06:59 18:59 Intake Total 1000 Output Total 50 Balance 950 Weight (lbs) 53.524 kg 53.524 kg Intake: Intake, IV Amount 1000 D5-0.45NS 1,000 ml @ 75 1000 mls/hr IV .[id number] [facility] Rx #:[id number] Oral 0 Output: Gastric Drainage 50 Other: # Voids 3 3 # Bowel Movements 1 Weight Source Bedscale Bedscale Active Medications: Current Medications Divalproex Sodium (Depakote Dr) 125 mg PO Q12HR JOHN Stop: 07/15/18 20:59 Last Admin: 05/19/18 08:29 Dose: Not Given Haloperidol (Haldol) 2 mg PO BID PRN; Protocol PRN Reason: Agitation Stop: 07/15/18 16:59 Haloperidol (Haldol) 2 mg PO BID [facility] Stop: 07/16/18 08:59 Last Admin: 05/19/18 08:28 Dose: Not Given Dextrose/Sodium Chloride (D5-0.45ns) 1,000 mls @ 75 mls/hr IV .[id number] JOHN Stop: 07/14/18 00:59 Last Admin: 05/18/18 23:46 Dose: 75 mls/hr Lactulose (Cephulac) 20 gm PO DAILY JOHN Stop: 07/14/18 08:59 Last Admin: 05/19/18 08:28 Dose: Not Given Levothyroxine Sodium (Synthroid) 0.025 mg PO QDAC JOHN Stop: 07/14/18 08:59 Last Admin: 05/19/18 08:28 Dose: Not Given Lorazepam (Ativan) 0.5 mg PO BID PRN; Protocol PRN Reason: Anxiety Stop: 07/15/18 11:15 Metoclopramide HCl (Reglan) 5 mg IVP BID JOHN Stop: 07/18/18 16:59 Miscellaneous (Cabergoline [Cabergoline]) 0.25 mg PO QTHUR JOHN Stop: 07/14/18 07:59 Miscellaneous (Cabergoline [Cabergoline]) 0.5 mg PO QMON [facility] Stop: 07/14/18 07:59 Ondansetron HCl (Zofran) 4 mg IV Q6H PRN PRN Reason: Nausea / Vomiting Stop: 07/14/18 09:50 Last Admin: 05/19/18 05:43 Dose: 4 mg Polyethylene Glycol (Miralax) 17 gm PO DAILY [facility] Stop: 07/16/18 13:14 Last Admin: 05/19/18 08:28 Dose: Not Given Quetiapine Fumarate (Seroquel) 150 mg PO HS [facility]; Protocol Stop: 07/14/18 20:59 Last Admin: 05/18/18 20:31 Dose: Not Given Vitamin D (Vitamin D3) 2,000 iu PO DAILY [facility] Stop: 07/14/18 08:59 Last Admin: 05/19/18 08:28 Dose: Not Given General: Alert, No acute distress HEENT: Atraumatic, PERRLA Cardiovascular: Regular rate, Normal S1, Normal S2 Lungs: Clear to auscultation, Normal air movement Abdomen: Bowel sounds, Soft Assessment/Plan - Plan Plan: cpm Nutritional Asmnt/Malnutr-PDOC - Dietary Evaluation Malnutrition Findings (Please click <Entered> for more info): Nutritional Asmnt/Malnutrition Start: 05/17/18 11: 40 Text: Status: Complete Freq: Protocol: Document 05/17/18 11:40 LCHENG (Rec: 05/17/18 11:51 LCHENG [email or web address]) Nutritional Asmnt/Malnutrition Patient General Information Nutritional Screening High Risk Diagnosis FTT Pertinent Medical Hx/Surgical Hx mental retardation, hypothyroidism. Subjective Information Pt was not able to communicate d/t mental status. Per nurse, pt has been refusing to eat. Per EMR, PO intake 0% of most meals. Swallow eval scheduled for today. Current Diet Order/ Nutrition Support full liquid. Pertinent Medications D5-0.45ns, synthroid, seroquel , vit D3 Pertinent Labs 05/15 Glucose 120, alb 3.0 Nutritional Hx/Data Height 1.55 m Height (Calculated Centimeters) 154.9 Current Weight (lbs) 53.524 kg Weight (Calculated Kilograms) 53.5 Weight (Calculated Grams) 62243.9 Body Mass Index (BMI) 22.3 Weight Status Approriate GI Symptoms GI Symptoms None Last BM not indicated Skin Integrity/Comment: abrasion to left lower knee and right lower leg Current %PO Negligible < 25% Estimated Nutritional Goals BEE in Kcals: Using Current wt Calories/Kcals/Kg 25-30 Kcals Calculated 0544-0892 Protein: Using Current wt Protein g/k-1.2 Protein Calculated 54-65 Fluid: ml 1350-1620ml (1ml/kcal) Nutritional Problem 1. Problem Problem inadequete food intake Etiology possible mental status/poor appetite Signs/Symptoms: PO intake <25% Intervention/Recommendation Comments 1. Wait for swallow eval result. Advance diet per ST recommendation. Assist pt with meals. MD to consider appetite stimulant as needed. 2. Monitor PO intake, wt, labs and skin integrity 3. F/U as high risk in 2-3 days, 05/19-05/20 Expected Outcomes/Goals Expected Outcomes/Goals 1. PO intake to meet at least 75% of nutritional needs. 2. Wt stability, skin to remain intact, labs to approach WNL.
[2018-05-19] MEDS: D5-0.45NS 1,000 ML IV SCH (17:17)
[2018-05-19] MEDS: Metoclopramide 5 mg/mL 2mL Vial IVP SCH (17:17)
[2018-05-20] MEDS: Levothyroxine 0.025 Mg Tab PO SCH (06:32)
[2018-05-20] MEDS: Lactulose 10 Gm/15 mL 30mL UDC PO SCH ×2 (08:27→08:42)
[2018-05-20] MEDS: Metoclopramide 5 mg/mL 2mL Vial IVP SCH ×2 (08:27→17:10)
[2018-05-20] MEDS: Vitamin D3 2,000 IU SGL PO SCH ×2 (08:28→08:42)
[2018-05-20] MEDS: POLYETHYLENE GLYCOL 3350 17 GM PACK PO SCH ×2 (08:29→08:42)
[2018-05-20] MEDS: D5-0.45NS 1,000 ML IV SCH (08:33)
--- NOTE | 2018-05-20 09:32 | GI Progress Note ---
Subjective - Review of Systems Service Date: 05/20/18 Subjective: EVENTS NOTED. Objective - Results Result Diagrams: 05/15/18 06:10 05/15/18 06:10 Recent Labs: Laboratory Last Values WBC 6.6 Th/cmm (4.8-10.8) 05/15/18 06:10 RBC 3.34 Mil/cmm (3.80-5.10) L 05/15/18 06:10 Hgb 11.8 gm/dL (12-16) L 05/15/18 06:10 Hct 34.0 % (41.0-60) L 05/15/18 06:10 MCV 101.9 fl (81-100) H 05/15/18 06:10 MCH 35.2 pg (27.0-31.0) H 05/15/18 06:10 MCHC Differential 34.6 pg (28.0-36.0) 05/15/18 06:10 RDW 13.8 % (11.5-20.0) 05/15/18 06:10 Plt Count 261 Th/cmm (150-400) 05/15/18 06:10 MPV 7.0 fl 05/15/18 06:10 Add Manual Diff YES 05/15/18 06:10 Band Neutrophils % 4 % (0-10) 05/15/18 06:10 Neutrophils (Manual) 52 % (40-80) 05/15/18 06:10 Lymphocytes 30 % (20-50) 05/15/18 06:10 Monocytes 14 % (2-10) H 05/15/18 06:10 Eosinophils 0 % (0-5) 05/15/18 06:10 Basophils 0 % (0-3) 05/15/18 06:10 Platelet Estimate ADEQUATE (NORMAL) 05/14/18 22:40 Platelet Morphology NORMAL (NORMAL) 05/14/18 22:40 RBC Morph Micro Appear NORMAL (NORMAL) 05/14/18 22:40 Sodium 136 mEq/L (136-145) 05/15/18 06:10 Potassium 3.7 mEq/L (3.5-5.1) 05/15/18 06:10 Chloride 105 mEq/L (98-107) 05/15/18 06:10 Carbon Dioxide 26.0 mEq/L (21.0-31.0) 05/15/18 06:10 Anion Gap 8.7 (7.0-16.0) 05/15/18 06:10 BUN 12 mg/dL (7-25) 05/15/18 06:10 Creatinine 0.6 mg/dL (0.6-1.2) 05/15/18 06:10 Est GFR ( Amer) > 60.0 ml/min (>90) 05/15/18 06:10 Est GFR (Non-Af Amer) > 60.0 ml/min 05/15/18 06:10 BUN/Creatinine Ratio 20.0 05/15/18 06:10 Glucose 120 mg/dL (70-105) H 05/15/18 06:10 Calcium 8.8 mg/dL (8.6-10.3) 05/15/18 06:10 Phosphorus 3.6 mg/dL (2.5-5.0) 05/14/18 22:40 Magnesium 1.8 mg/dL (1.9-2.7) L 05/14/18 22:40 Total Bilirubin 0.2 mg/dL (0.3-1.0) L 05/15/18 06:10 AST 18 U/L (13-39) 05/15/18 06:10 ALT 12 U/L (7-52) 05/15/18 06:10 Alkaline Phosphatase 49 U/L (34-104) 05/15/18 06:10 Total Protein 5.6 gm/dL (6.0-8.3) L 05/15/18 06:10 Albumin 3.0 gm/dL (3.7-5.3) L 05/15/18 06:10 Globulin 2.6 gm/dL 05/15/18 06:10 Albumin/Globulin Ratio 1.2 (1.0-1.8) 05/15/18 06:10 Triglycerides 75 mg/dL (<150) 05/15/18 06:10 Cholesterol 147 mg/dL (<200) 05/15/18 06:10 LDL Cholesterol Direct 67 mg/dL (75-193) L 05/15/18 06:10 HDL Cholesterol 63 mg/dL (23-92) 05/15/18 06:10 TSH 3.28 uIU/ml (0.34-5.60) 05/15/18 06:10 Urine Source CATH 05/14/18 23:00 Urine Color YELLOW 05/14/18 23:00 Urine Clarity CLEAR (CLEAR) 05/14/18 23:00 Urine pH 7.0 (4.6 - 8.0) 05/14/18 23:00 Ur Specific [place] 1.015 (1.005-1.030) 05/14/18 23:00 Urine Protein 30 mg/dL (NEGATIVE) H 05/14/18 23:00 Urine Glucose (UA) NEGATIVE mg/dL (NEGATIVE) 05/14/18 23:00 Urine Ketones 40 mg/dL (NEGATIVE) H 05/14/18 23:00 Urine Blood LARGE (NEGATIVE) H 05/14/18 23:00 Urine Nitrate NEGATIVE (NEGATIVE) 05/14/18 23:00 Urine Bilirubin NEGATIVE (NEGATIVE) 05/14/18 23:00 Urine Urobilinogen 1.0 E.U./dL (0.2 - 1.0) 05/14/18 23:00 Ur Leukocyte Esterase NEGATIVE (NEGATIVE) 05/14/18 23:00 Urine RBC 10-25 /hpf (0-5) H 05/14/18 23:00 Urine WBC 2-5 /hpf (0-5) 05/14/18 23:00 Ur Epithelial Cells RARE /lpf (FEW) 05/14/18 23:00 Urine Bacteria NONE SEEN /hpf (NONE SEEN) 05/14/18 23:00 Urine Mucus FEW /lpf (FEW) 05/14/18 23:00 Urine Opiates Screen NEGATIVE (NEGATIVE) 05/14/18 23:00 Urine Methadone Screen NEGATIVE (NEGATIVE) 05/14/18 23:00 Ur Barbiturates Screen NEGATIVE (NEGATIVE) 05/14/18 23:00 Valproic Acid 14.7 ug/mL (50.0-100.0) L 05/14/18 22:40 Ur Tricyclics Screen POSITIVE (NEGATIVE) H 05/14/18 23:00 Ur Phencyclidine Scrn NEGATIVE (NEGATIVE) 05/14/18 23:00 Amphetamines Screen NEGATIVE (NEGATIVE) 05/14/18 23:00 U Methamphetamines Scrn NEGATIVE (NEGATIVE) 05/14/18 23:00 U Benzodiazepines Scrn NEGATIVE (NEGATIVE) 05/14/18 23:00 U Cocaine Metab Screen NEGATIVE (NEGATIVE) 05/14/18 23:00 U Cannabinoids Screen NEGATIVE (NEGATIVE) 05/14/18 23:00 - Physical Exam Vitals and I&O: Vital Signs Temp 98.1 F 05/20/18 08:50 Pulse 62 05/20/18 08:50 Resp 18 05/20/18 09:22 BP 111/68 05/20/18 08:50 Pulse Ox 98 05/20/18 08:50 Intake & Output 05/19/18 05/20/18 05/20/18 18:59 06:59 18:59 Intake Total 1000 1000 Balance 1000 1000 Weight (lbs) 54.431 kg Intake: Intake, IV Amount 1000 1000 D5-0.45NS 1,000 ml @ 75 1000 1000 mls/hr IV .[id number] [facility] Rx #:[id number] Other: # Voids 4 # Bowel Movements 1 Stool Characteristics Soft Weight Source Bedscale Active Medications: Current Medications Divalproex Sodium (Depakote Dr) 125 mg PO Q12HR JOHN Stop: 07/15/18 20:59 Last Admin: 05/20/18 08:42 Dose: Not Given Haloperidol (Haldol) 2 mg PO BID PRN; Protocol PRN Reason: Agitation Stop: 07/15/18 16:59 Haloperidol (Haldol) 2 mg PO BID JOHN Stop: 07/16/18 08:59 Last Admin: 05/20/18 08:42 Dose: Not Given Dextrose/Sodium Chloride (D5-0.45ns) 1,000 mls @ 75 mls/hr IV .[id number] JOHN Stop: 07/14/18 00:59 Last Admin: 05/20/18 08:33 Dose: 75 mls/hr Lactulose (Cephulac) 20 gm PO DAILY JOHN Stop: 07/14/18 08:59 Last Admin: 05/20/18 08:42 Dose: Not Given Levothyroxine Sodium (Synthroid) 0.025 mg PO QDAC JOHN Stop: 07/14/18 08:59 Last Admin: 05/20/18 06:32 Dose: Not Given Lorazepam (Ativan) 0.5 mg PO BID PRN; Protocol PRN Reason: Anxiety Stop: 07/15/18 11:15 Metoclopramide HCl (Reglan) 5 mg IVP BID JOHN Stop: 07/18/18 16:59 Last Admin: 05/20/18 08:27 Dose: 5 mg Miscellaneous (Cabergoline [Cabergoline]) 0.25 mg PO QTHUR [facility] Stop: 07/14/18 07:59 Miscellaneous (Cabergoline [Cabergoline]) 0.5 mg PO QMON [facility] Stop: 07/14/18 07:59 Ondansetron HCl (Zofran) 4 mg IV Q6H PRN PRN Reason: Nausea / Vomiting Stop: 07/14/18 09:50 Last Admin: 05/19/18 05:43 Dose: 4 mg Polyethylene Glycol (Miralax) 17 gm PO DAILY [facility] Stop: 07/16/18 13:14 Last Admin: 05/20/18 08:42 Dose: Not Given Quetiapine Fumarate (Seroquel) 150 mg PO HS [facility]; Protocol Stop: 07/14/18 20:59 Last Admin: 05/19/18 20:34 Dose: Not Given Vitamin D (Vitamin D3) 2,000 iu PO DAILY [facility] Stop: 07/14/18 08:59 Last Admin: 05/20/18 08:42 Dose: Not Given General: No acute distress HEENT: Atraumatic Neck: Supple Cardiovascular: Regular rate Lungs: Clear to auscultation, Normal air movement Abdomen: Bowel sounds, Soft, no Tender, no Distended Assessment/Plan - Assessment Assessment: IMPRESSION: 1. Refusal to eat 2. MR 3. constipation 4. ?hematuria. RECS: -Encourage oral intake. -Recheck KUB. -Trial of Reglan -Mother prefers to look for cause, does not want a G tube -consider evaluation and/or CT A/P for workup of hematuria.
--- NOTE | 2018-05-20 10:24 | Diagnostic Imaging Report ---
KUB abdominal film HISTORY: Pain There is a nonspecific gas pattern of nondilated bowel. No free intraperitoneal air. No abnormal calcifications. No plain radiographic evidence of significant constipation. IMPRESSION: 1. Nonspecific bowel gas pattern with no acute abnormalities
--- NOTE | 2018-05-20 16:22 | General Progress Note ---
Subjective - Review of Systems Subjective: patient awake admitted with failure to thrive is mentally challenge Objective - Results Result Diagrams: 05/15/18 06:10 05/15/18 06:10 Recent Labs: Laboratory Last Values WBC 6.6 Th/cmm (4.8-10.8) 05/15/18 06:10 RBC 3.34 Mil/cmm (3.80-5.10) L 05/15/18 06:10 Hgb 11.8 gm/dL (12-16) L 05/15/18 06:10 Hct 34.0 % (41.0-60) L 05/15/18 06:10 MCV 101.9 fl (81-100) H 05/15/18 06:10 MCH 35.2 pg (27.0-31.0) H 05/15/18 06:10 MCHC Differential 34.6 pg (28.0-36.0) 05/15/18 06:10 RDW 13.8 % (11.5-20.0) 05/15/18 06:10 Plt Count 261 Th/cmm (150-400) 05/15/18 06:10 MPV 7.0 fl 05/15/18 06:10 Add Manual Diff YES 05/15/18 06:10 Band Neutrophils % 4 % (0-10) 05/15/18 06:10 Neutrophils (Manual) 52 % (40-80) 05/15/18 06:10 Lymphocytes 30 % (20-50) 05/15/18 06:10 Monocytes 14 % (2-10) H 05/15/18 06:10 Eosinophils 0 % (0-5) 05/15/18 06:10 Basophils 0 % (0-3) 05/15/18 06:10 Platelet Estimate ADEQUATE (NORMAL) 05/14/18 22:40 Platelet Morphology NORMAL (NORMAL) 05/14/18 22:40 RBC Morph Micro Appear NORMAL (NORMAL) 05/14/18 22:40 Sodium 136 mEq/L (136-145) 05/15/18 06:10 Potassium 3.7 mEq/L (3.5-5.1) 05/15/18 06:10 Chloride 105 mEq/L (98-107) 05/15/18 06:10 Carbon Dioxide 26.0 mEq/L (21.0-31.0) 05/15/18 06:10 Anion Gap 8.7 (7.0-16.0) 05/15/18 06:10 BUN 12 mg/dL (7-25) 05/15/18 06:10 Creatinine 0.6 mg/dL (0.6-1.2) 05/15/18 06:10 Est GFR ( Amer) > 60.0 ml/min (>90) 05/15/18 06:10 Est GFR (Non-Af Amer) > 60.0 ml/min 05/15/18 06:10 BUN/Creatinine Ratio 20.0 05/15/18 06:10 Glucose 120 mg/dL (70-105) H 05/15/18 06:10 Calcium 8.8 mg/dL (8.6-10.3) 05/15/18 06:10 Phosphorus 3.6 mg/dL (2.5-5.0) 05/14/18 22:40 Magnesium 1.8 mg/dL (1.9-2.7) L 05/14/18 22:40 Total Bilirubin 0.2 mg/dL (0.3-1.0) L 05/15/18 06:10 AST 18 U/L (13-39) 05/15/18 06:10 ALT 12 U/L (7-52) 05/15/18 06:10 Alkaline Phosphatase 49 U/L (34-104) 05/15/18 06:10 Total Protein 5.6 gm/dL (6.0-8.3) L 05/15/18 06:10 Albumin 3.0 gm/dL (3.7-5.3) L 05/15/18 06:10 Globulin 2.6 gm/dL 05/15/18 06:10 Albumin/Globulin Ratio 1.2 (1.0-1.8) 05/15/18 06:10 Triglycerides 75 mg/dL (<150) 05/15/18 06:10 Cholesterol 147 mg/dL (<200) 05/15/18 06:10 LDL Cholesterol Direct 67 mg/dL (75-193) L 05/15/18 06:10 HDL Cholesterol 63 mg/dL (23-92) 05/15/18 06:10 TSH 3.28 uIU/ml (0.34-5.60) 05/15/18 06:10 Urine Source CATH 05/14/18 23:00 Urine Color YELLOW 05/14/18 23:00 Urine Clarity CLEAR (CLEAR) 05/14/18 23:00 Urine pH 7.0 (4.6 - 8.0) 05/14/18 23:00 Ur Specific [place] 1.015 (1.005-1.030) 05/14/18 23:00 Urine Protein 30 mg/dL (NEGATIVE) H 05/14/18 23:00 Urine Glucose (UA) NEGATIVE mg/dL (NEGATIVE) 05/14/18 23:00 Urine Ketones 40 mg/dL (NEGATIVE) H 05/14/18 23:00 Urine Blood LARGE (NEGATIVE) H 05/14/18 23:00 Urine Nitrate NEGATIVE (NEGATIVE) 05/14/18 23:00 Urine Bilirubin NEGATIVE (NEGATIVE) 05/14/18 23:00 Urine Urobilinogen 1.0 E.U./dL (0.2 - 1.0) 05/14/18 23:00 Ur Leukocyte Esterase NEGATIVE (NEGATIVE) 05/14/18 23:00 Urine RBC 10-25 /hpf (0-5) H 05/14/18 23:00 Urine WBC 2-5 /hpf (0-5) 05/14/18 23:00 Ur Epithelial Cells RARE /lpf (FEW) 05/14/18 23:00 Urine Bacteria NONE SEEN /hpf (NONE SEEN) 05/14/18 23:00 Urine Mucus FEW /lpf (FEW) 05/14/18 23:00 Urine Opiates Screen NEGATIVE (NEGATIVE) 05/14/18 23:00 Urine Methadone Screen NEGATIVE (NEGATIVE) 05/14/18 23:00 Ur Barbiturates Screen NEGATIVE (NEGATIVE) 05/14/18 23:00 Valproic Acid 14.7 ug/mL (50.0-100.0) L 05/14/18 22:40 Ur Tricyclics Screen POSITIVE (NEGATIVE) H 05/14/18 23:00 Ur Phencyclidine Scrn NEGATIVE (NEGATIVE) 05/14/18 23:00 Amphetamines Screen NEGATIVE (NEGATIVE) 05/14/18 23:00 U Methamphetamines Scrn NEGATIVE (NEGATIVE) 05/14/18 23:00 U Benzodiazepines Scrn NEGATIVE (NEGATIVE) 05/14/18 23:00 U Cocaine Metab Screen NEGATIVE (NEGATIVE) 05/14/18 23:00 U Cannabinoids Screen NEGATIVE (NEGATIVE) 05/14/18 23:00 - Physical Exam Vitals and I&O: Vital Signs Temp 98.3 F 05/20/18 15:29 Pulse 65 05/20/18 15:29 Resp 18 05/20/18 15:29 BP 112/65 05/20/18 15:29 Pulse Ox 98 05/20/18 15:29 Intake & Output 05/19/18 05/20/18 05/20/18 18:59 06:59 18:59 Intake Total 1000 1000 Balance 1000 1000 Weight (lbs) 54.431 kg Intake: Intake, IV Amount 1000 1000 D5-0.45NS 1,000 ml @ 75 1000 1000 mls/hr IV .[id number] [facility] Rx #:[id number] Other: # Voids 4 # Bowel Movements 1 Stool Characteristics Soft Weight Source Bedscale Active Medications: Current Medications Divalproex Sodium (Depakote Dr) 125 mg PO Q12HR JOHN Stop: 07/15/18 20:59 Last Admin: 05/20/18 08:42 Dose: Not Given Haloperidol (Haldol) 2 mg PO BID PRN; Protocol PRN Reason: Agitation Stop: 07/15/18 16:59 Haloperidol (Haldol) 2 mg PO BID JOHN Stop: 07/16/18 08:59 Last Admin: 05/20/18 08:42 Dose: Not Given Dextrose/Sodium Chloride (D5-0.45ns) 1,000 mls @ 75 mls/hr IV .[id number] JOHN Stop: 07/14/18 00:59 Last Admin: 05/20/18 08:33 Dose: 75 mls/hr Lactulose (Cephulac) 20 gm PO DAILY JOHN Stop: 07/14/18 08:59 Last Admin: 05/20/18 08:42 Dose: Not Given Levothyroxine Sodium (Synthroid) 0.025 mg PO QDAC JOHN Stop: 07/14/18 08:59 Last Admin: 05/20/18 06:32 Dose: Not Given Lorazepam (Ativan) 0.5 mg PO BID PRN; Protocol PRN Reason: Anxiety Stop: 07/15/18 11:15 Metoclopramide HCl (Reglan) 5 mg IVP BID JOHN Stop: 07/18/18 16:59 Last Admin: 05/20/18 08:27 Dose: 5 mg Miscellaneous (Cabergoline [Cabergoline]) 0.25 mg PO QTHUR [facility] Stop: 07/14/18 07:59 Miscellaneous (Cabergoline [Cabergoline]) 0.5 mg PO QMON [facility] Stop: 07/14/18 07:59 Ondansetron HCl (Zofran) 4 mg IV Q6H PRN PRN Reason: Nausea / Vomiting Stop: 07/14/18 09:50 Last Admin: 05/20/18 13:46 Dose: 4 mg Polyethylene Glycol (Miralax) 17 gm PO DAILY [facility] Stop: 07/16/18 13:14 Last Admin: 05/20/18 08:42 Dose: Not Given Quetiapine Fumarate (Seroquel) 150 mg PO HS [facility]; Protocol Stop: 07/14/18 20:59 Last Admin: 05/19/18 20:34 Dose: Not Given Vitamin D (Vitamin D3) 2,000 iu PO DAILY [facility] Stop: 07/14/18 08:59 Last Admin: 05/20/18 08:42 Dose: Not Given General: No acute distress HEENT: Atraumatic Neck: Supple Cardiovascular: Regular rate Lungs: Clear to auscultation, Normal air movement Abdomen: Bowel sounds, Soft, no Tender, no Distended Assessment/Plan - Plan Plan: cpm Nutritional Asmnt/Malnutr-PDOC - Dietary Evaluation Malnutrition Findings (Please click <Entered> for more info): Nutritional Asmnt/Malnutrition Start: 05/17/18 11: 40 Text: Status: Complete Freq: Protocol: Document 05/17/18 11:40 LCHENG (Rec: 05/17/18 11:51 LCNAZ [email or web address]) Nutritional Asmnt/Malnutrition Patient General Information Nutritional Screening High Risk Diagnosis FTT Pertinent Medical Hx/Surgical Hx mental retardation, hypothyroidism. Subjective Information Pt was not able to communicate d/t mental status. Per nurse, pt has been refusing to eat. Per EMR, PO intake 0% of most meals. Swallow eval scheduled for today. Current Diet Order/ Nutrition Support full liquid. Pertinent Medications D5-0.45ns, synthroid, seroquel , vit D3 Pertinent Labs 05/15 Glucose 120, alb 3.0 Nutritional Hx/Data Height 1.55 m Height (Calculated Centimeters) 154.9 Current Weight (lbs) 53.524 kg Weight (Calculated Kilograms) 53.5 Weight (Calculated Grams) 85859.9 Body Mass Index (BMI) 22.3 Weight Status Approriate GI Symptoms GI Symptoms None Last BM not indicated Skin Integrity/Comment: abrasion to left lower knee and right lower leg Current %PO Negligible < 25% Estimated Nutritional Goals BEE in Kcals: Using Current wt Calories/Kcals/Kg 25-30 Kcals Calculated 9187-8292 Protein: Using Current wt Protein g/k-1.2 Protein Calculated 54-65 Fluid: ml 1350-1620ml (1ml/kcal) Nutritional Problem 1. Problem Problem inadequete food intake Etiology possible mental status/poor appetite Signs/Symptoms: PO intake <25% Intervention/Recommendation Comments 1. Wait for swallow eval result. Advance diet per ST recommendation. Assist pt with meals. MD to consider appetite stimulant as needed. 2. Monitor PO intake, wt, labs and skin integrity 3. F/U as high risk in 2-3 days, 05/19-05/20 Expected Outcomes/Goals Expected Outcomes/Goals 1. PO intake to meet at least 75% of nutritional needs. 2. Wt stability, skin to remain intact, labs to approach WNL.
[2018-05-20 18:44] LABS: % BASOPHILS 0.6 % (0.0-2.0); % EOSINOPHILS 0.4 % (0.0-5.0); % LYMPHOCYTES 35.3 % (20.0-50.0); % MONOCYTES 9.5 % (2.0-10.0); % NEUTROPHILS 54.2 % (40.0-80.0); BASOPHILE ABSOLUTE 0.1 Th/cumm (0-0.2); HEMATOCRIT 41.7 % (41.0-60); HEMOGLOBIN 14.1 gm/dL (12-16); LYMPHOCYTE ABSOLUTE 4.3 Th/cmm (1.5-3.0); MEAN CELL VOLUME 101.9 fl (81-100); MEAN CORPUSCULAR HEMOGLOBIN 34.5 pg (27.0-31.0); MEAN CORPUSCULAR HGB CONC 33.9 pg (28.0-36.0); MEAN PLATELET VOLUME 7.3 fl; MONOCYTE ABSOLUTE 1.1 Th/cmm (0.3-1.0); NEUTROPHILE ABSOLUTE 6.6 Th/cmm (1.8-8.0); PLATELET COUNT 319 Th/cmm (150-400); RED BLOOD COUNT 4.09 Mil/cmm (3.80-5.10); WHITE BLOOD COUNT 12.1 Th/cmm (4.8-10.8)
[2018-05-20 18:59] LABS: ALB/GLOB RATIO 1.3 (1.0-1.8); ALBUMIN 3.9 gm/dL (3.7-5.3); ALKALINE PHOSPHATASE 63 U/L (34-104); ANION GAP 21.6 (7.0-16.0); BILIRUBIN,TOTAL 0.6 mg/dL (0.3-1.0); BUN - UREA NITROGEN 11 mg/dL (7-25); CALCIUM SERUM 9.6 mg/dL (8.6-10.3); CARBON DIOXIDE 15.7 mEq/L (21.0-31.0); CHLORIDE 98 mEq/L (98-107); CREATININE - SERUM 0.8 mg/dL (0.6-1.2); GFR AFRICAN-AMERICAN > 60.0 ml/min (>90); GFR NON AFRICAN-AMERICAN > 60.0 ml/min; GLUCOSE 169 mg/dL (70-105); POTASSIUM SERUM 3.3 mEq/L (3.5-5.1); SGOT 17 U/L (13-39); SGPT/ALT 12 U/L (7-52); SODIUM SERUM 132 mEq/L (136-145)
[2018-05-21] MEDS: D5-0.45NS 1,000 ML IV SCH (03:20)
[2018-05-21 05:27] LABS: EOSINOPHILE ABSOLUTE 0.1 Th/cmm (0.1-0.4); HEMOGLOBIN 12.9 gm/dL (12-16); MONOCYTE ABSOLUTE 0.9 Th/cmm (0.3-1.0)
[2018-05-21 05:41] LABS: ALB/GLOB RATIO 1.3 (1.0-1.8); ALBUMIN 3.3 gm/dL (3.7-5.3); ALKALINE PHOSPHATASE 52 U/L (34-104); ANION GAP 7.9 (7.0-16.0); BILIRUBIN,TOTAL 0.5 mg/dL (0.3-1.0); BUN - UREA NITROGEN 10 mg/dL (7-25); CALCIUM SERUM 9.1 mg/dL (8.6-10.3); CARBON DIOXIDE 25.4 mEq/L (21.0-31.0); CHLORIDE 102 mEq/L (98-107); CREATININE - SERUM 0.6 mg/dL (0.6-1.2); GFR AFRICAN-AMERICAN > 60.0 ml/min (>90); GFR NON AFRICAN-AMERICAN > 60.0 ml/min; GLUCOSE 99 mg/dL (70-105); POTASSIUM SERUM 3.3 mEq/L (3.5-5.1); SGOT 12 U/L (13-39); SGPT/ALT 9 U/L (7-52); SODIUM SERUM 132 mEq/L (136-145); TOTAL PROTEIN,SERUM 5.9 gm/dL (6.0-8.3)
[2018-05-21 06:51] LABS: % BASOPHILS 0.2 % (0.0-2.0); % EOSINOPHILS 0.8 % (0.0-5.0); % LYMPHOCYTES 30.7 % (20.0-50.0); % MONOCYTES 11.7 % (2.0-10.0); % NEUTROPHILS 56.6 % (40.0-80.0); HEMATOCRIT 37.6 % (41.0-60); LYMPHOCYTE ABSOLUTE 2.5 Th/cmm (1.5-3.0); MEAN CELL VOLUME 102.1 fl (81-100); MEAN CORPUSCULAR HGB CONC 34.3 pg (28.0-36.0); MEAN PLATELET VOLUME 7.4 fl; NEUTROPHILE ABSOLUTE 4.5 Th/cmm (1.8-8.0); PLATELET COUNT 281 Th/cmm (150-400); RED BLOOD COUNT 3.69 Mil/cmm (3.80-5.10); RED CELL DISTRIBUTION WIDTH 13.8 % (11.5-20.0)
[2018-05-21] MEDS: Levothyroxine 0.025 Mg Tab PO SCH (07:35)
[2018-05-21] MEDS: POLYETHYLENE GLYCOL 3350 17 GM PACK PO SCH (09:30)
[2018-05-21] MEDS: Vitamin D3 2,000 IU SGL PO SCH (09:30)
[2018-05-21] MEDS: Lactulose 10 Gm/15 mL 30mL UDC PO SCH (09:35)
--- NOTE | 2018-05-21 10:12 | Diagnostic Imaging Report ---
CT scan of the brain without contrast History: Seizures Total DLP equals 712 CTDI equals 65.0 Axial sections were obtained from the base of the skull to the vertex. Exam is somewhat limited due to difficulty in patient positioning and cooperation. Images somewhat degraded due to motion artifact. There is a normal ventricular system size. No focal parenchymal lesions are seen. No evidence of any mass effect or shift of midline structures. No extra-axial masses or abnormal fluid collections. Impression: 1. Limited exam as noted above 2. No definite acute abnormalities
[2018-05-21] MEDS: Metoclopramide 5 mg/mL 2mL Vial IVP SCH ×2 (10:25→18:17)
--- NOTE | 2018-05-21 11:48 | GI Progress Note ---
Subjective - Review of Systems Service Date: 05/21/18 Subjective: EVENTS NOTED. MOTHER AT BEDSIDE. APPETITE REMAINS POOR. HAD SZ OVERNIGHT. HEAD CT NEG. Objective - Results Result Diagrams: 05/21/18 04:50 05/21/18 04:50 Recent Labs: Laboratory Last Values WBC 8.0 Th/cmm (4.8-10.8) D 05/21/18 04:50 RBC 3.69 Mil/cmm (3.80-5.10) L 05/21/18 04:50 Hgb 12.9 gm/dL (12-16) 05/21/18 04:50 Hct 37.6 % (41.0-60) L 05/21/18 04:50 MCV 102.1 fl (81-100) H 05/21/18 04:50 MCH 35.0 pg (27.0-31.0) H 05/21/18 04:50 MCHC Differential 34.3 pg (28.0-36.0) 05/21/18 04:50 RDW 13.8 % (11.5-20.0) 05/21/18 04:50 Plt Count 281 Th/cmm (150-400) 05/21/18 04:50 MPV 7.4 fl 05/21/18 04:50 Add Manual Diff YES 05/15/18 06:10 Neutrophils % 56.6 % (40.0-80.0) 05/21/18 04:50 Band Neutrophils % 4 % (0-10) 05/15/18 06:10 Lymphocytes % 30.7 % (20.0-50.0) 05/21/18 04:50 Monocytes % 11.7 % (2.0-10.0) H 05/21/18 04:50 Eosinophils % 0.8 % (0.0-5.0) 05/21/18 04:50 Basophils % 0.2 % (0.0-2.0) 05/21/18 04:50 Neutrophils (Manual) 52 % (40-80) 05/15/18 06:10 Lymphocytes 30 % (20-50) 05/15/18 06:10 Monocytes 14 % (2-10) H 05/15/18 06:10 Eosinophils 0 % (0-5) 05/15/18 06:10 Basophils 0 % (0-3) 05/15/18 06:10 Platelet Estimate ADEQUATE (NORMAL) 05/14/18 22:40 Platelet Morphology NORMAL (NORMAL) 05/14/18 22:40 RBC Morph Micro Appear NORMAL (NORMAL) 05/14/18 22:40 Sodium 132 mEq/L (136-145) L 05/21/18 04:50 Potassium 3.3 mEq/L (3.5-5.1) L 05/21/18 04:50 Chloride 102 mEq/L (98-107) 05/21/18 04:50 Carbon Dioxide 25.4 mEq/L (21.0-31.0) 05/21/18 04:50 Anion Gap 7.9 (7.0-16.0) 05/21/18 04:50 BUN 10 mg/dL (7-25) 05/21/18 04:50 Creatinine 0.6 mg/dL (0.6-1.2) 05/21/18 04:50 Est GFR ( Amer) > 60.0 ml/min (>90) 05/21/18 04:50 Est GFR (Non-Af Amer) > 60.0 ml/min 05/21/18 04:50 BUN/Creatinine Ratio 16.7 05/21/18 04:50 Glucose 99 mg/dL (70-105) 05/21/18 04:50 Calcium 9.1 mg/dL (8.6-10.3) 05/21/18 04:50 Phosphorus 3.6 mg/dL (2.5-5.0) 05/14/18 22:40 Magnesium 1.8 mg/dL (1.9-2.7) L 05/14/18 22:40 Total Bilirubin 0.5 mg/dL (0.3-1.0) 05/21/18 04:50 AST 12 U/L (13-39) L 05/21/18 04:50 ALT 9 U/L (7-52) 05/21/18 04:50 Alkaline Phosphatase 52 U/L (34-104) 05/21/18 04:50 Total Protein 5.9 gm/dL (6.0-8.3) L 05/21/18 04:50 Albumin 3.3 gm/dL (3.7-5.3) L 05/21/18 04:50 Globulin 2.6 gm/dL 05/21/18 04:50 Albumin/Globulin Ratio 1.3 (1.0-1.8) 05/21/18 04:50 Triglycerides 75 mg/dL (<150) 05/15/18 06:10 Cholesterol 147 mg/dL (<200) 05/15/18 06:10 LDL Cholesterol Direct 67 mg/dL (75-193) L 05/15/18 06:10 HDL Cholesterol 63 mg/dL (23-92) 05/15/18 06:10 TSH 3.28 uIU/ml (0.34-5.60) 05/15/18 06:10 Urine Source CATH 05/14/18 23:00 Urine Color YELLOW 05/14/18 23:00 Urine Clarity CLEAR (CLEAR) 05/14/18 23:00 Urine pH 7.0 (4.6 - 8.0) 05/14/18 23:00 Ur Specific [place] 1.015 (1.005-1.030) 05/14/18 23:00 Urine Protein 30 mg/dL (NEGATIVE) H 05/14/18 23:00 Urine Glucose (UA) NEGATIVE mg/dL (NEGATIVE) 05/14/18 23:00 Urine Ketones 40 mg/dL (NEGATIVE) H 05/14/18 23:00 Urine Blood LARGE (NEGATIVE) H 05/14/18 23:00 Urine Nitrate NEGATIVE (NEGATIVE) 05/14/18 23:00 Urine Bilirubin NEGATIVE (NEGATIVE) 05/14/18 23:00 Urine Urobilinogen 1.0 E.U./dL (0.2 - 1.0) 05/14/18 23:00 Ur Leukocyte Esterase NEGATIVE (NEGATIVE) 05/14/18 23:00 Urine RBC 10-25 /hpf (0-5) H 05/14/18 23:00 Urine WBC 2-5 /hpf (0-5) 05/14/18 23:00 Ur Epithelial Cells RARE /lpf (FEW) 05/14/18 23:00 Urine Bacteria NONE SEEN /hpf (NONE SEEN) 05/14/18 23:00 Urine Mucus FEW /lpf (FEW) 05/14/18 23:00 Urine Opiates Screen NEGATIVE (NEGATIVE) 05/14/18 23:00 Urine Methadone Screen NEGATIVE (NEGATIVE) 05/14/18 23:00 Ur Barbiturates Screen NEGATIVE (NEGATIVE) 05/14/18 23:00 Valproic Acid 14.7 ug/mL (50.0-100.0) L 05/14/18 22:40 Ur Tricyclics Screen POSITIVE (NEGATIVE) H 05/14/18 23:00 Ur Phencyclidine Scrn NEGATIVE (NEGATIVE) 05/14/18 23:00 Amphetamines Screen NEGATIVE (NEGATIVE) 05/14/18 23:00 U Methamphetamines Scrn NEGATIVE (NEGATIVE) 05/14/18 23:00 U Benzodiazepines Scrn NEGATIVE (NEGATIVE) 05/14/18 23:00 U Cocaine Metab Screen NEGATIVE (NEGATIVE) 05/14/18 23:00 U Cannabinoids Screen NEGATIVE (NEGATIVE) 05/14/18 23:00 - Physical Exam Vitals and I&O: Vital Signs Temp 98.6 F 05/21/18 04:00 Pulse 66 05/21/18 04:00 Resp 18 05/21/18 04:00 BP 108/59 05/21/18 04:00 Pulse Ox 95 05/21/18 04:00 Intake & Output 05/20/18 05/21/18 05/21/18 18:59 06:59 18:59 Intake Total 1150 Balance 1150 Weight (lbs) 54.431 kg Intake: Intake, IV Amount 1000 D5-0.45NS 1,000 ml @ 75 1000 mls/hr IV .[id number] [facility] Rx #:[id number] Oral 150 Other: # Voids 3 # Bowel Movements 0 Stool Characteristics Soft Soft Weight Source Bedscale Active Medications: Current Medications Divalproex Sodium (Depakote Dr) 125 mg PO Q12HR [facility] Stop: 07/15/18 20:59 Last Admin: 05/21/18 09:35 Dose: Not Given Haloperidol (Haldol) 2 mg PO BID PRN; Protocol PRN Reason: Agitation Stop: 07/15/18 16:59 Haloperidol (Haldol) 2 mg PO BID JOHN Stop: 07/16/18 08:59 Last Admin: 05/21/18 09:35 Dose: Not Given Dextrose/Sodium Chloride (D5-0.45ns) 1,000 mls @ 75 mls/hr IV .[id number] JOHN Stop: 07/14/18 00:59 Last Admin: 05/21/18 03:20 Dose: 75 mls/hr Lactulose (Cephulac) 20 gm PO DAILY JOHN Stop: 07/14/18 08:59 Last Admin: 05/21/18 09:35 Dose: Not Given Levothyroxine Sodium (Synthroid) 0.025 mg PO QDAC [facility] Stop: 07/14/18 08:59 Last Admin: 05/21/18 07:35 Dose: Not Given Lorazepam (Ativan) 0.5 mg PO BID PRN; Protocol PRN Reason: Anxiety Stop: 07/15/18 11:15 Lorazepam (Ativan) 1 mg IVP Q4HR PRN; Protocol PRN Reason: Seizures Stop: 07/19/18 19:04 Metoclopramide HCl (Reglan) 5 mg IVP BID [facility] Stop: 07/18/18 16:59 Last Admin: 05/20/18 17:10 Dose: 5 mg Miscellaneous (Cabergoline [Cabergoline]) 0.25 mg PO QTHUR [facility] Stop: 07/14/18 07:59 Miscellaneous (Cabergoline [Cabergoline]) 0.5 mg PO QMON [facility] Stop: 07/14/18 07:59 Ondansetron HCl (Zofran) 4 mg IV Q6H PRN PRN Reason: Nausea / Vomiting Stop: 07/14/18 09:50 Last Admin: 05/20/18 13:46 Dose: 4 mg Polyethylene Glycol (Miralax) 17 gm PO DAILY [facility] Stop: 07/16/18 13:14 Last Admin: 05/20/18 08:42 Dose: Not Given Quetiapine Fumarate (Seroquel) 150 mg PO HS [facility]; Protocol Stop: 07/14/18 20:59 Last Admin: 05/20/18 21:52 Dose: Not Given Vitamin D (Vitamin D3) 2,000 iu PO DAILY [facility] Stop: 07/14/18 08:59 Last Admin: 05/21/18 09:30 Dose: Not Given General: No acute distress HEENT: Atraumatic Neck: Supple Cardiovascular: Regular rate Lungs: Clear to auscultation, Normal air movement Abdomen: Bowel sounds, Soft, no Tender, no Distended Assessment/Plan - Assessment Assessment: IMPRESSION: 1. Refusal to eat with ?N/V. 2. MR. 3. constipation 4. ?hematuria. 5. ?sz. RECS: -Encourage oral intake. -Added Protonix. -Trial of Reglan -Mother prefers to look for cause, does not want a G tube -consider evaluation and/or CT A/P for workup of hematuria if persistent. -may need EGD if N/V persist despite PPI/Reglan.
[2018-05-21] MEDS ORDERED: Potassium Chloride 20 mEq ER Tab PO ONE (12:07)
[2018-05-21] MEDS: D5-0.9%NS 1,000 ML IV SCH (12:30)
[2018-05-21] MEDS ORDERED: CABERGOLINE 0.5 MG PO SCH (15:30)
[2018-05-22] MEDS: Levothyroxine 0.025 Mg Tab PO SCH (06:51)
[2018-05-22] MEDS ORDERED: Potassium Chloride 20 mEq ER Tab PO ONE (08:42)
[2018-05-22] MEDS: Vitamin D3 2,000 IU SGL PO SCH (08:57)
[2018-05-22] MEDS: POLYETHYLENE GLYCOL 3350 17 GM PACK PO SCH (08:57)
[2018-05-22] MEDS: Metoclopramide 5 mg/mL 2mL Vial IVP SCH ×2 (08:57→16:11)
[2018-05-22] MEDS: Lactulose 10 Gm/15 mL 30mL UDC PO SCH (08:57)
--- NOTE | 2018-05-22 08:59 | GI Progress Note ---
Subjective - Review of Systems Service Date: 05/22/18 Subjective: EVENTS NOTED. STILL SPITTING UP FOOD. Objective - Results Result Diagrams: 05/21/18 04:50 05/21/18 04:50 Recent Labs: Laboratory Last Values WBC 8.0 Th/cmm (4.8-10.8) D 05/21/18 04:50 RBC 3.69 Mil/cmm (3.80-5.10) L 05/21/18 04:50 Hgb 12.9 gm/dL (12-16) 05/21/18 04:50 Hct 37.6 % (41.0-60) L 05/21/18 04:50 MCV 102.1 fl (81-100) H 05/21/18 04:50 MCH 35.0 pg (27.0-31.0) H 05/21/18 04:50 MCHC Differential 34.3 pg (28.0-36.0) 05/21/18 04:50 RDW 13.8 % (11.5-20.0) 05/21/18 04:50 Plt Count 281 Th/cmm (150-400) 05/21/18 04:50 MPV 7.4 fl 05/21/18 04:50 Add Manual Diff YES 05/15/18 06:10 Neutrophils % 56.6 % (40.0-80.0) 05/21/18 04:50 Band Neutrophils % 4 % (0-10) 05/15/18 06:10 Lymphocytes % 30.7 % (20.0-50.0) 05/21/18 04:50 Monocytes % 11.7 % (2.0-10.0) H 05/21/18 04:50 Eosinophils % 0.8 % (0.0-5.0) 05/21/18 04:50 Basophils % 0.2 % (0.0-2.0) 05/21/18 04:50 Neutrophils (Manual) 52 % (40-80) 05/15/18 06:10 Lymphocytes 30 % (20-50) 05/15/18 06:10 Monocytes 14 % (2-10) H 05/15/18 06:10 Eosinophils 0 % (0-5) 05/15/18 06:10 Basophils 0 % (0-3) 05/15/18 06:10 Platelet Estimate ADEQUATE (NORMAL) 05/14/18 22:40 Platelet Morphology NORMAL (NORMAL) 05/14/18 22:40 RBC Morph Micro Appear NORMAL (NORMAL) 05/14/18 22:40 Sodium 132 mEq/L (136-145) L 05/21/18 04:50 Potassium 3.3 mEq/L (3.5-5.1) L 05/21/18 04:50 Chloride 102 mEq/L (98-107) 05/21/18 04:50 Carbon Dioxide 25.4 mEq/L (21.0-31.0) 05/21/18 04:50 Anion Gap 7.9 (7.0-16.0) 05/21/18 04:50 BUN 10 mg/dL (7-25) 05/21/18 04:50 Creatinine 0.6 mg/dL (0.6-1.2) 05/21/18 04:50 Est GFR ( Amer) > 60.0 ml/min (>90) 05/21/18 04:50 Est GFR (Non-Af Amer) > 60.0 ml/min 05/21/18 04:50 BUN/Creatinine Ratio 16.7 05/21/18 04:50 Glucose 99 mg/dL (70-105) 05/21/18 04:50 Calcium 9.1 mg/dL (8.6-10.3) 05/21/18 04:50 Phosphorus 3.6 mg/dL (2.5-5.0) 05/14/18 22:40 Magnesium 1.8 mg/dL (1.9-2.7) L 05/14/18 22:40 Total Bilirubin 0.5 mg/dL (0.3-1.0) 05/21/18 04:50 AST 12 U/L (13-39) L 05/21/18 04:50 ALT 9 U/L (7-52) 05/21/18 04:50 Alkaline Phosphatase 52 U/L (34-104) 05/21/18 04:50 Total Protein 5.9 gm/dL (6.0-8.3) L 05/21/18 04:50 Albumin 3.3 gm/dL (3.7-5.3) L 05/21/18 04:50 Globulin 2.6 gm/dL 05/21/18 04:50 Albumin/Globulin Ratio 1.3 (1.0-1.8) 05/21/18 04:50 Triglycerides 75 mg/dL (<150) 05/15/18 06:10 Cholesterol 147 mg/dL (<200) 05/15/18 06:10 LDL Cholesterol Direct 67 mg/dL (75-193) L 05/15/18 06:10 HDL Cholesterol 63 mg/dL (23-92) 05/15/18 06:10 TSH 3.28 uIU/ml (0.34-5.60) 05/15/18 06:10 Urine Source CATH 05/14/18 23:00 Urine Color YELLOW 05/14/18 23:00 Urine Clarity CLEAR (CLEAR) 05/14/18 23:00 Urine pH 7.0 (4.6 - 8.0) 05/14/18 23:00 Ur Specific [place] 1.015 (1.005-1.030) 05/14/18 23:00 Urine Protein 30 mg/dL (NEGATIVE) H 05/14/18 23:00 Urine Glucose (UA) NEGATIVE mg/dL (NEGATIVE) 05/14/18 23:00 Urine Ketones 40 mg/dL (NEGATIVE) H 05/14/18 23:00 Urine Blood LARGE (NEGATIVE) H 05/14/18 23:00 Urine Nitrate NEGATIVE (NEGATIVE) 05/14/18 23:00 Urine Bilirubin NEGATIVE (NEGATIVE) 05/14/18 23:00 Urine Urobilinogen 1.0 E.U./dL (0.2 - 1.0) 05/14/18 23:00 Ur Leukocyte Esterase NEGATIVE (NEGATIVE) 05/14/18 23:00 Urine RBC 10-25 /hpf (0-5) H 05/14/18 23:00 Urine WBC 2-5 /hpf (0-5) 05/14/18 23:00 Ur Epithelial Cells RARE /lpf (FEW) 05/14/18 23:00 Urine Bacteria NONE SEEN /hpf (NONE SEEN) 05/14/18 23:00 Urine Mucus FEW /lpf (FEW) 05/14/18 23:00 Urine Opiates Screen NEGATIVE (NEGATIVE) 05/14/18 23:00 Urine Methadone Screen NEGATIVE (NEGATIVE) 05/14/18 23:00 Ur Barbiturates Screen NEGATIVE (NEGATIVE) 05/14/18 23:00 Valproic Acid < 10.0 ug/mL (50.0-100.0) L 05/21/18 04:50 Ur Tricyclics Screen POSITIVE (NEGATIVE) H 05/14/18 23:00 Ur Phencyclidine Scrn NEGATIVE (NEGATIVE) 05/14/18 23:00 Amphetamines Screen NEGATIVE (NEGATIVE) 05/14/18 23:00 U Methamphetamines Scrn NEGATIVE (NEGATIVE) 05/14/18 23:00 U Benzodiazepines Scrn NEGATIVE (NEGATIVE) 05/14/18 23:00 U Cocaine Metab Screen NEGATIVE (NEGATIVE) 05/14/18 23:00 U Cannabinoids Screen NEGATIVE (NEGATIVE) 05/14/18 23:00 - Physical Exam Vitals and I&O: Vital Signs Temp 97.3 F 05/22/18 07:53 Pulse 60 05/22/18 07:53 Resp 18 05/22/18 07:53 BP 99/55 05/22/18 07:53 Pulse Ox 96 05/22/18 07:53 Intake & Output 05/21/18 05/22/18 05/22/18 18:59 06:59 18:59 Intake Total 160 Balance 160 Weight (lbs) 67.585 kg Intake: Oral 160 Other: # Voids 2 # Bowel Movements 1 Stool Characteristics Soft Weight Source Bedscale Active Medications: Current Medications Divalproex Sodium (Depakote Dr) 250 mg PO TID JOHN; Protocol Stop: 05/24/18 20:59 Last Admin: 05/22/18 08:52 Dose: 250 mg Divalproex Sodium (Depakote Dr) 250 mg PO Q12HR JOHN; Protocol Stop: 07/23/18 20:59 Haloperidol (Haldol) 2 mg PO BID PRN; Protocol PRN Reason: Agitation Stop: 07/15/18 16:59 Haloperidol (Haldol) 2 mg PO BID JOHN Stop: 07/16/18 08:59 Last Admin: 05/22/18 08:57 Dose: Not Given Dextrose/Sodium Chloride (D5-0.9%Ns) 1,000 mls @ 50 mls/hr IV .Q20H JOHN Stop: 07/20/18 12:05 Last Admin: 05/21/18 12:30 Dose: 50 mls/hr Lactulose (Cephulac) 20 gm PO DAILY JOHN Stop: 07/14/18 08:59 Last Admin: 05/22/18 08:57 Dose: Not Given Levothyroxine Sodium (Synthroid) 0.025 mg PO QDAC JOHN Stop: 07/14/18 08:59 Last Admin: 05/22/18 06:51 Dose: 0.025 mg Lorazepam (Ativan) 0.5 mg PO BID PRN; Protocol PRN Reason: Anxiety Stop: 07/15/18 11:15 Lorazepam (Ativan) 1 mg IVP Q4HR PRN; Protocol PRN Reason: Seizures Stop: 07/19/18 19:04 Metoclopramide HCl (Reglan) 5 mg IVP BID [facility] Stop: 07/18/18 16:59 Last Admin: 05/22/18 08:57 Dose: 5 mg Miscellaneous (Cabergoline [Cabergoline]) 0.25 mg PO QTHUR [facility] Stop: 07/14/18 07:59 Miscellaneous (Cabergoline [Cabergoline]) 0.5 mg PO QMON [facility] Stop: 07/14/18 07:59 Ondansetron HCl (Zofran) 4 mg IV Q6H PRN PRN Reason: Nausea / Vomiting Stop: 07/14/18 09:50 Last Admin: 05/20/18 13:46 Dose: 4 mg Pantoprazole Sodium (Protonix) 40 mg IVP DAILY JOHN Stop: 07/20/18 11:59 Last Admin: 05/22/18 08:57 Dose: 40 mg Cabergoline 0.25mg (Tab) 1 PO QTHUR [facility] Stop: 07/26/18 08:59 Cabergoline 0.5mg (Tab) 1 PO QMON [facility] Stop: 07/20/18 15:29 Polyethylene Glycol (Miralax) 17 gm PO DAILY JOHN Stop: 07/16/18 13:14 Last Admin: 05/22/18 08:57 Dose: Not Given Quetiapine Fumarate (Seroquel) 150 mg PO HS [facility]; Protocol Stop: 07/14/18 20:59 Last Admin: 05/21/18 22:08 Dose: 150 mg Vitamin D (Vitamin D3) 2,000 iu PO DAILY [facility] Stop: 07/14/18 08:59 Last Admin: 05/22/18 08:57 Dose: Not Given General: No acute distress HEENT: Atraumatic Neck: Supple Cardiovascular: Regular rate Lungs: Clear to auscultation, Normal air movement Abdomen: Bowel sounds, Soft, no Tender, no Distended Assessment/Plan - Assessment Assessment: IMPRESSION: 1. Refusal to eat with N/V. 2. MR. 3. constipation 4. ?hematuria. 5. ?sz. RECS: -Encourage oral intake. -Added Protonix. -Trial of Reglan -Mother prefers to look for cause, does not want a G tube -consider evaluation for workup of hematuria if persistent. Will check noncontrast CT A/P for now. -may need EGD if N/V persist despite PPI/Reglan.
--- NOTE | 2018-05-22 09:33 | Progress Notes ---
DATE: 05/22/2018 SUBJECTIVE: The patient was seen in her room. The patient still has some poor appetite, had episode of seizure [address] scan was negative. Today's potassium is 3.3. The patient is a poor historian. Otherwise, the patient is in no acute distress. OBJECTIVE: VITAL SIGNS: Temperature 97.3, heart rate of 60, respirations of 18, blood pressure 99/55, 96% on room air. HEAD: Atraumatic and normocephalic. EYES: Bilateral conjunctivae are clear. Bilateral pupils are equally round and reactive. NECK: Supple. No JVD. CARDIOVASCULAR: S1 and S2 without murmur. PULMONARY: Clear to auscultation. GASTROINTESTINAL: Soft and nontender without guarding. Positive bowel sounds. MUSCULOSKELETAL: No clubbing. No cyanosis noted. ASSESSMENT: 1. Failure to thrive. 2. Mental retardation. 3. Hypothyroidism. 4. Gastroesophageal reflux disease. 5. Vitamin D deficiency. 6. Constipation. PLAN: We will continue current treatment. Per GI recommendation, we will consider genitourinary evaluation or CT of the abdomen and pelvis if hematuria will reoccur; possible EGD, persistent nausea and vomiting despite with proton pump inhibitors. Treatment plans were discussed with the patient's nurse. Treatment plans were discussed with Dr. Liao. JOB# [id number]
[2018-05-22] MEDS ORDERED: KCL 20mEq/100mL Premix Bag IV ONE (10:15)
[2018-05-22] MEDS ORDERED: Potassium Phosphate 20 MMOLE in Sodium Chloride 0.9% 250 ML IV ONE (11:00)
[2018-05-22] MEDS: D5-0.9%NS 1,000 ML IV SCH (12:50)
[2018-05-23 05:35] LABS: ANION GAP 9.5 (7.0-16.0); BUN - UREA NITROGEN 5 mg/dL (7-25); CALCIUM SERUM 9.2 mg/dL (8.6-10.3); CARBON DIOXIDE 26.1 mEq/L (21.0-31.0); CHLORIDE 106 mEq/L (98-107); CREATININE - SERUM 0.6 mg/dL (0.6-1.2); GFR AFRICAN-AMERICAN > 60.0 ml/min (>90); GFR NON AFRICAN-AMERICAN > 60.0 ml/min; GLUCOSE 113 mg/dL (70-105); POTASSIUM SERUM 3.6 mEq/L (3.5-5.1); SODIUM SERUM 138 mEq/L (136-145)
[2018-05-23] MEDS: Levothyroxine 0.025 Mg Tab PO SCH (06:43)
--- NOTE | 2018-05-23 08:08 | GI Progress Note ---
Subjective - Review of Systems Service Date: 05/23/18 Subjective: EVENTS NOTED. STILL SPITTING UP FOOD FROM HERE. DRANK SHAKE BROUGHT BY MOTHER. CT A/P NEG. Objective - Results Result Diagrams: 05/21/18 04:50 05/23/18 04:35 Recent Labs: Laboratory Last Values WBC 8.0 Th/cmm (4.8-10.8) D 05/21/18 04:50 RBC 3.69 Mil/cmm (3.80-5.10) L 05/21/18 04:50 Hgb 12.9 gm/dL (12-16) 05/21/18 04:50 Hct 37.6 % (41.0-60) L 05/21/18 04:50 MCV 102.1 fl (81-100) H 05/21/18 04:50 MCH 35.0 pg (27.0-31.0) H 05/21/18 04:50 MCHC Differential 34.3 pg (28.0-36.0) 05/21/18 04:50 RDW 13.8 % (11.5-20.0) 05/21/18 04:50 Plt Count 281 Th/cmm (150-400) 05/21/18 04:50 MPV 7.4 fl 05/21/18 04:50 Add Manual Diff YES 05/15/18 06:10 Neutrophils % 56.6 % (40.0-80.0) 05/21/18 04:50 Band Neutrophils % 4 % (0-10) 05/15/18 06:10 Lymphocytes % 30.7 % (20.0-50.0) 05/21/18 04:50 Monocytes % 11.7 % (2.0-10.0) H 05/21/18 04:50 Eosinophils % 0.8 % (0.0-5.0) 05/21/18 04:50 Basophils % 0.2 % (0.0-2.0) 05/21/18 04:50 Neutrophils (Manual) 52 % (40-80) 05/15/18 06:10 Lymphocytes 30 % (20-50) 05/15/18 06:10 Monocytes 14 % (2-10) H 05/15/18 06:10 Eosinophils 0 % (0-5) 05/15/18 06:10 Basophils 0 % (0-3) 05/15/18 06:10 Platelet Estimate ADEQUATE (NORMAL) 05/14/18 22:40 Platelet Morphology NORMAL (NORMAL) 05/14/18 22:40 RBC Morph Micro Appear NORMAL (NORMAL) 05/14/18 22:40 Sodium 138 mEq/L (136-145) 05/23/18 04:35 Potassium 3.6 mEq/L (3.5-5.1) 05/23/18 04:35 Chloride 106 mEq/L (98-107) 05/23/18 04:35 Carbon Dioxide 26.1 mEq/L (21.0-31.0) 05/23/18 04:35 Anion Gap 9.5 (7.0-16.0) 05/23/18 04:35 BUN 5 mg/dL (7-25) L 05/23/18 04:35 Creatinine 0.6 mg/dL (0.6-1.2) 05/23/18 04:35 Est GFR ( Amer) > 60.0 ml/min (>90) 05/23/18 04:35 Est GFR (Non-Af Amer) > 60.0 ml/min 05/23/18 04:35 BUN/Creatinine Ratio 8.3 05/23/18 04:35 Glucose 113 mg/dL (70-105) H 05/23/18 04:35 Calcium 9.2 mg/dL (8.6-10.3) 05/23/18 04:35 Phosphorus 3.6 mg/dL (2.5-5.0) 05/14/18 22:40 Magnesium 1.8 mg/dL (1.9-2.7) L 05/14/18 22:40 Total Bilirubin 0.5 mg/dL (0.3-1.0) 05/21/18 04:50 AST 12 U/L (13-39) L 05/21/18 04:50 ALT 9 U/L (7-52) 05/21/18 04:50 Alkaline Phosphatase 52 U/L (34-104) 05/21/18 04:50 Total Protein 5.9 gm/dL (6.0-8.3) L 05/21/18 04:50 Albumin 3.3 gm/dL (3.7-5.3) L 05/21/18 04:50 Globulin 2.6 gm/dL 05/21/18 04:50 Albumin/Globulin Ratio 1.3 (1.0-1.8) 05/21/18 04:50 Triglycerides 75 mg/dL (<150) 05/15/18 06:10 Cholesterol 147 mg/dL (<200) 05/15/18 06:10 LDL Cholesterol Direct 67 mg/dL (75-193) L 05/15/18 06:10 HDL Cholesterol 63 mg/dL (23-92) 05/15/18 06:10 TSH 3.28 uIU/ml (0.34-5.60) 05/15/18 06:10 Urine Source CATH 05/14/18 23:00 Urine Color YELLOW 05/14/18 23:00 Urine Clarity CLEAR (CLEAR) 05/14/18 23:00 Urine pH 7.0 (4.6 - 8.0) 05/14/18 23:00 Ur Specific [place] 1.015 (1.005-1.030) 05/14/18 23:00 Urine Protein 30 mg/dL (NEGATIVE) H 05/14/18 23:00 Urine Glucose (UA) NEGATIVE mg/dL (NEGATIVE) 05/14/18 23:00 Urine Ketones 40 mg/dL (NEGATIVE) H 05/14/18 23:00 Urine Blood LARGE (NEGATIVE) H 05/14/18 23:00 Urine Nitrate NEGATIVE (NEGATIVE) 05/14/18 23:00 Urine Bilirubin NEGATIVE (NEGATIVE) 05/14/18 23:00 Urine Urobilinogen 1.0 E.U./dL (0.2 - 1.0) 05/14/18 23:00 Ur Leukocyte Esterase NEGATIVE (NEGATIVE) 05/14/18 23:00 Urine RBC 10-25 /hpf (0-5) H 05/14/18 23:00 Urine WBC 2-5 /hpf (0-5) 05/14/18 23:00 Ur Epithelial Cells RARE /lpf (FEW) 05/14/18 23:00 Urine Bacteria NONE SEEN /hpf (NONE SEEN) 05/14/18 23:00 Urine Mucus FEW /lpf (FEW) 05/14/18 23:00 Urine Opiates Screen NEGATIVE (NEGATIVE) 05/14/18 23:00 Urine Methadone Screen NEGATIVE (NEGATIVE) 05/14/18 23:00 Ur Barbiturates Screen NEGATIVE (NEGATIVE) 05/14/18 23:00 Valproic Acid < 10.0 ug/mL (50.0-100.0) L 05/21/18 04:50 Ur Tricyclics Screen POSITIVE (NEGATIVE) H 05/14/18 23:00 Ur Phencyclidine Scrn NEGATIVE (NEGATIVE) 05/14/18 23:00 Amphetamines Screen NEGATIVE (NEGATIVE) 05/14/18 23:00 U Methamphetamines Scrn NEGATIVE (NEGATIVE) 05/14/18 23:00 U Benzodiazepines Scrn NEGATIVE (NEGATIVE) 05/14/18 23:00 U Cocaine Metab Screen NEGATIVE (NEGATIVE) 05/14/18 23:00 U Cannabinoids Screen NEGATIVE (NEGATIVE) 05/14/18 23:00 - Physical Exam Vitals and I&O: Vital Signs Temp 97.4 F 05/23/18 07:28 Pulse 94 05/23/18 07:28 Resp 18 05/23/18 07:28 BP 126/73 05/23/18 07:28 Pulse Ox 96 05/23/18 07:28 Intake & Output 05/22/18 05/23/18 05/23/18 18:59 06:59 18:59 Intake Total 1000 400 Balance 1000 400 Weight (lbs) 67.132 kg Intake: Intake, IV Amount 1000 D5-0.9%Ns 1,000 ml @ 50 1000 mls/hr IV .Q20H [facility] Rx#: [id number] Oral 400 Other: # Voids 2 # Bowel Movements 0 Weight Source Bedscale Active Medications: Current Medications Divalproex Sodium (Depakote Dr) 250 mg PO TID JOHN; Protocol Stop: 05/24/18 20:59 Last Admin: 05/22/18 21:08 Dose: 250 mg Divalproex Sodium (Depakote Dr) 250 mg PO Q12HR JOHN; Protocol Stop: 07/23/18 20:59 Haloperidol (Haldol) 2 mg PO BID PRN; Protocol PRN Reason: Agitation Stop: 07/15/18 16:59 Haloperidol (Haldol) 2 mg PO BID JOHN Stop: 07/16/18 08:59 Last Admin: 05/22/18 16:12 Dose: Not Given Dextrose/Sodium Chloride (D5-0.9%Ns) 1,000 mls @ 50 mls/hr IV .Q20H JOHN Stop: 07/20/18 12:05 Last Admin: 05/22/18 12:50 Dose: 50 mls/hr Lactulose (Cephulac) 20 gm PO DAILY JOHN Stop: 07/14/18 08:59 Last Admin: 05/22/18 08:57 Dose: Not Given Levothyroxine Sodium (Synthroid) 0.025 mg PO QDAC JOHN Stop: 07/14/18 08:59 Last Admin: 05/23/18 06:43 Dose: Not Given Lorazepam (Ativan) 0.5 mg PO BID PRN; Protocol PRN Reason: Anxiety Stop: 07/15/18 11:15 Lorazepam (Ativan) 1 mg IVP Q4HR PRN; Protocol PRN Reason: Seizures Stop: 07/19/18 19:04 Metoclopramide HCl (Reglan) 5 mg IVP BID JOHN Stop: 07/18/18 16:59 Last Admin: 05/22/18 16:11 Dose: 5 mg Ondansetron HCl (Zofran) 4 mg IV Q6H PRN PRN Reason: Nausea / Vomiting Stop: 07/14/18 09:50 Last Admin: 05/20/18 13:46 Dose: 4 mg Pantoprazole Sodium (Protonix) 40 mg IVP DAILY JOHN Stop: 07/20/18 11:59 Last Admin: 05/22/18 08:57 Dose: 40 mg Cabergoline 0.25mg (Tab) 1 PO QTHUR [facility] Stop: 07/26/18 08:59 Cabergoline 0.5mg (Tab) 1 PO QMON [facility] Stop: 07/20/18 15:29 Polyethylene Glycol (Miralax) 17 gm PO DAILY JOHN Stop: 07/16/18 13:14 Last Admin: 05/22/18 08:57 Dose: Not Given Quetiapine Fumarate (Seroquel) 150 mg PO HS JOHN; Protocol Stop: 07/14/18 20:59 Last Admin: 05/22/18 21:08 Dose: 150 mg Vitamin D (Vitamin D3) 2,000 iu PO DAILY JOHN Stop: 07/14/18 08:59 Last Admin: 05/22/18 08:57 Dose: Not Given General: No acute distress HEENT: Atraumatic Neck: Supple Cardiovascular: Regular rate Lungs: Clear to auscultation, Normal air movement Abdomen: Bowel sounds, Soft, no Tender, no Distended Assessment/Plan - Assessment Assessment: IMPRESSION: 1. Refusal to eat with N/V. 2. MR. 3. constipation 4. ?hematuria. 5. ?sz. RECS: -Encourage oral intake. -Protonix IV. -Reglan IV. -Mother prefers to look for cause, does not want a G tube -consider evaluation for workup of hematuria if persistent. CT neg here. -may need EGD if anorexia and spitting persists.
[2018-05-23] MEDS: Metoclopramide 5 mg/mL 2mL Vial IVP SCH ×2 (08:42→16:40)
[2018-05-23] MEDS: D5-0.9%NS 1,000 ML IV SCH (08:55)
[2018-05-23] MEDS: Vitamin D3 2,000 IU SGL PO SCH (08:58)
[2018-05-23] MEDS: POLYETHYLENE GLYCOL 3350 17 GM PACK PO SCH (08:58)
[2018-05-23] MEDS: Lactulose 10 Gm/15 mL 30mL UDC PO SCH (08:58)
--- NOTE | 2018-05-23 09:57 | Diagnostic Imaging Report ---
CT abdomen and pelvis without intravenous contrast Indication: Nausea vomiting and hematuria Comparison: None, Technique: Axial images were obtained from the lung bases to the bilateral proximal femurs without IV contrast. Coronal reconstructions were made. total DLP: 407, CTDI8.8 FINDINGS: Hypoventilatory atelectatic changes of the lung bases are noted. Assessment of the solid organs is limited due to lack of IV contrast. Exam is also limited due to motion. No evidence of focal hepatic or splenic lesions. Limited assessment of pancreas demonstrates no focal lesions. No focal adrenal lesions. No hydronephrosis or nephrolithiasis. Distended urinary bladder is noted. Bilateral adnexal fullness is seen with small left adnexal cystic changes. There is copious stool throughout the colon. High density seen within the appendix which may be due to secretions.. No evidence of appendicitis. Distended stomach is noted. No evidence of free fluid or free air. The osseous structures demonstrate no acute abnormalities. IMPRESSION: Copious stool throughout the colon. Please correlate for constipation. Distended stomach. High density in the appendix which may be due to secretions or small appendicoliths. No evidence of appendicitis. Distended urinary bladder. No evidence of renal stones or hydronephrosis. Bilateral adnexal fullness and left adnexal cystic changes. If indicated, ultrasound would further clarify.
--- NOTE | 2018-05-23 13:04 | General Progress Note ---
Subjective - Review of Systems Events since last encounter: awake in no distress still spiting up food Subjective: patient awake admitted with failure to thrive is mentally challenge Objective - Results Result Diagrams: 05/21/18 04:50 05/23/18 04:35 Recent Labs: Laboratory Last Values WBC 8.0 Th/cmm (4.8-10.8) D 05/21/18 04:50 RBC 3.69 Mil/cmm (3.80-5.10) L 05/21/18 04:50 Hgb 12.9 gm/dL (12-16) 05/21/18 04:50 Hct 37.6 % (41.0-60) L 05/21/18 04:50 MCV 102.1 fl (81-100) H 05/21/18 04:50 MCH 35.0 pg (27.0-31.0) H 05/21/18 04:50 MCHC Differential 34.3 pg (28.0-36.0) 05/21/18 04:50 RDW 13.8 % (11.5-20.0) 05/21/18 04:50 Plt Count 281 Th/cmm (150-400) 05/21/18 04:50 MPV 7.4 fl 05/21/18 04:50 Add Manual Diff YES 05/15/18 06:10 Neutrophils % 56.6 % (40.0-80.0) 05/21/18 04:50 Band Neutrophils % 4 % (0-10) 05/15/18 06:10 Lymphocytes % 30.7 % (20.0-50.0) 05/21/18 04:50 Monocytes % 11.7 % (2.0-10.0) H 05/21/18 04:50 Eosinophils % 0.8 % (0.0-5.0) 05/21/18 04:50 Basophils % 0.2 % (0.0-2.0) 05/21/18 04:50 Neutrophils (Manual) 52 % (40-80) 05/15/18 06:10 Lymphocytes 30 % (20-50) 05/15/18 06:10 Monocytes 14 % (2-10) H 05/15/18 06:10 Eosinophils 0 % (0-5) 05/15/18 06:10 Basophils 0 % (0-3) 05/15/18 06:10 Platelet Estimate ADEQUATE (NORMAL) 05/14/18 22:40 Platelet Morphology NORMAL (NORMAL) 05/14/18 22:40 RBC Morph Micro Appear NORMAL (NORMAL) 05/14/18 22:40 Sodium 138 mEq/L (136-145) 05/23/18 04:35 Potassium 3.6 mEq/L (3.5-5.1) 05/23/18 04:35 Chloride 106 mEq/L (98-107) 05/23/18 04:35 Carbon Dioxide 26.1 mEq/L (21.0-31.0) 05/23/18 04:35 Anion Gap 9.5 (7.0-16.0) 05/23/18 04:35 BUN 5 mg/dL (7-25) L 05/23/18 04:35 Creatinine 0.6 mg/dL (0.6-1.2) 05/23/18 04:35 Est GFR ( Amer) > 60.0 ml/min (>90) 05/23/18 04:35 Est GFR (Non-Af Amer) > 60.0 ml/min 05/23/18 04:35 BUN/Creatinine Ratio 8.3 05/23/18 04:35 Glucose 113 mg/dL (70-105) H 05/23/18 04:35 Calcium 9.2 mg/dL (8.6-10.3) 05/23/18 04:35 Phosphorus 3.6 mg/dL (2.5-5.0) 05/14/18 22:40 Magnesium 1.8 mg/dL (1.9-2.7) L 05/14/18 22:40 Total Bilirubin 0.5 mg/dL (0.3-1.0) 05/21/18 04:50 AST 12 U/L (13-39) L 05/21/18 04:50 ALT 9 U/L (7-52) 05/21/18 04:50 Alkaline Phosphatase 52 U/L (34-104) 05/21/18 04:50 Total Protein 5.9 gm/dL (6.0-8.3) L 05/21/18 04:50 Albumin 3.3 gm/dL (3.7-5.3) L 05/21/18 04:50 Globulin 2.6 gm/dL 05/21/18 04:50 Albumin/Globulin Ratio 1.3 (1.0-1.8) 05/21/18 04:50 Triglycerides 75 mg/dL (<150) 05/15/18 06:10 Cholesterol 147 mg/dL (<200) 05/15/18 06:10 LDL Cholesterol Direct 67 mg/dL (75-193) L 05/15/18 06:10 HDL Cholesterol 63 mg/dL (23-92) 05/15/18 06:10 TSH 3.28 uIU/ml (0.34-5.60) 05/15/18 06:10 Urine Source CATH 05/14/18 23:00 Urine Color YELLOW 05/14/18 23:00 Urine Clarity CLEAR (CLEAR) 05/14/18 23:00 Urine pH 7.0 (4.6 - 8.0) 05/14/18 23:00 Ur Specific [place] 1.015 (1.005-1.030) 05/14/18 23:00 Urine Protein 30 mg/dL (NEGATIVE) H 05/14/18 23:00 Urine Glucose (UA) NEGATIVE mg/dL (NEGATIVE) 05/14/18 23:00 Urine Ketones 40 mg/dL (NEGATIVE) H 05/14/18 23:00 Urine Blood LARGE (NEGATIVE) H 05/14/18 23:00 Urine Nitrate NEGATIVE (NEGATIVE) 05/14/18 23:00 Urine Bilirubin NEGATIVE (NEGATIVE) 05/14/18 23:00 Urine Urobilinogen 1.0 E.U./dL (0.2 - 1.0) 05/14/18 23:00 Ur Leukocyte Esterase NEGATIVE (NEGATIVE) 05/14/18 23:00 Urine RBC 10-25 /hpf (0-5) H 05/14/18 23:00 Urine WBC 2-5 /hpf (0-5) 05/14/18 23:00 Ur Epithelial Cells RARE /lpf (FEW) 05/14/18 23:00 Urine Bacteria NONE SEEN /hpf (NONE SEEN) 05/14/18 23:00 Urine Mucus FEW /lpf (FEW) 05/14/18 23:00 Urine Opiates Screen NEGATIVE (NEGATIVE) 05/14/18 23:00 Urine Methadone Screen NEGATIVE (NEGATIVE) 05/14/18 23:00 Ur Barbiturates Screen NEGATIVE (NEGATIVE) 05/14/18 23:00 Valproic Acid < 10.0 ug/mL (50.0-100.0) L 05/21/18 04:50 Ur Tricyclics Screen POSITIVE (NEGATIVE) H 05/14/18 23:00 Ur Phencyclidine Scrn NEGATIVE (NEGATIVE) 05/14/18 23:00 Amphetamines Screen NEGATIVE (NEGATIVE) 05/14/18 23:00 U Methamphetamines Scrn NEGATIVE (NEGATIVE) 05/14/18 23:00 U Benzodiazepines Scrn NEGATIVE (NEGATIVE) 05/14/18 23:00 U Cocaine Metab Screen NEGATIVE (NEGATIVE) 05/14/18 23:00 U Cannabinoids Screen NEGATIVE (NEGATIVE) 05/14/18 23:00 - Physical Exam Vitals and I&O: Vital Signs Temp 97.2 F 05/23/18 11:36 Pulse 59 05/23/18 11:36 Resp 18 05/23/18 11:36 BP 112/67 05/23/18 11:36 Pulse Ox 97 05/23/18 11:36 Intake & Output 05/22/18 05/23/18 05/23/18 18:59 06:59 18:59 Intake Total 9514 607 7836 Balance 7136 657 9422 Weight (lbs) 67.132 kg Intake: Intake, IV Amount 1000 1000 D5-0.9%Ns 1,000 ml @ 50 1000 1000 mls/hr IV .Q20H [facility] Rx#: [id number] Oral 400 Other: # Voids 2 # Bowel Movements 0 Weight Source Bedscale Active Medications: Current Medications Divalproex Sodium (Depakote Dr) 250 mg PO TID [facility]; Protocol Stop: 05/24/18 20:59 Last Admin: 05/23/18 08:45 Dose: 250 mg Divalproex Sodium (Depakote Dr) 250 mg PO Q12HR JOHN; Protocol Stop: 07/23/18 20:59 Haloperidol (Haldol) 2 mg PO BID PRN; Protocol PRN Reason: Agitation Stop: 07/15/18 16:59 Haloperidol (Haldol) 2 mg PO BID JOHN Stop: 07/16/18 08:59 Last Admin: 05/23/18 08:58 Dose: Not Given Dextrose/Sodium Chloride (D5-0.9%Ns) 1,000 mls @ 50 mls/hr IV .Q20H JOHN Stop: 07/20/18 12:05 Last Admin: 05/23/18 08:55 Dose: 50 mls/hr Lactulose (Cephulac) 20 gm PO DAILY JOHN Stop: 07/14/18 08:59 Last Admin: 05/23/18 08:58 Dose: Not Given Levothyroxine Sodium (Synthroid) 0.025 mg PO QDAC JOHN Stop: 07/14/18 08:59 Last Admin: 05/23/18 06:43 Dose: Not Given Lorazepam (Ativan) 0.5 mg PO BID PRN; Protocol PRN Reason: Anxiety Stop: 07/15/18 11:15 Lorazepam (Ativan) 1 mg IVP Q4HR PRN; Protocol PRN Reason: Seizures Stop: 07/19/18 19:04 Metoclopramide HCl (Reglan) 5 mg IVP BID JOHN Stop: 07/18/18 16:59 Last Admin: 05/23/18 08:42 Dose: 5 mg Ondansetron HCl (Zofran) 4 mg IV Q6H PRN PRN Reason: Nausea / Vomiting Stop: 07/14/18 09:50 Last Admin: 05/20/18 13:46 Dose: 4 mg Pantoprazole Sodium (Protonix) 40 mg IVP DAILY JOHN Stop: 07/20/18 11:59 Last Admin: 05/23/18 08:43 Dose: 40 mg Cabergoline 0.25mg (Tab) 1 PO QTHUR JOHN Stop: 07/26/18 08:59 Cabergoline 0.5mg (Tab) 1 PO QMON JOHN Stop: 07/20/18 15:29 Polyethylene Glycol (Miralax) 17 gm PO DAILY JOHN Stop: 07/16/18 13:14 Last Admin: 05/23/18 08:58 Dose: Not Given Quetiapine Fumarate (Seroquel) 150 mg PO HS JOHN; Protocol Stop: 07/14/18 20:59 Last Admin: 05/22/18 21:08 Dose: 150 mg Vitamin D (Vitamin D3) 2,000 iu PO DAILY JOHN Stop: 07/14/18 08:59 Last Admin: 05/23/18 08:58 Dose: Not Given General: No acute distress HEENT: Atraumatic Neck: Supple Cardiovascular: Regular rate Lungs: Clear to auscultation, Normal air movement Abdomen: Bowel sounds, Soft, no Tender, no Distended Assessment/Plan - Plan Plan: cpm Nutritional Asmnt/Malnutr-PDOC - Dietary Evaluation Malnutrition Findings (Please click <Entered> for more info): Nutritional Asmnt/Malnutrition Start: 05/17/18 11: 40 Text: Status: Complete Freq: Protocol: Document 05/17/18 11:40 MELLNAZ (Rec: 05/17/18 11:51 MELLNAZ [email or web address]) Nutritional Asmnt/Malnutrition Patient General Information Nutritional Screening High Risk Diagnosis FTT Pertinent Medical Hx/Surgical Hx mental retardation, hypothyroidism. Subjective Information Pt was not able to communicate d/t mental status. Per nurse, pt has been refusing to eat. Per EMR, PO intake 0% of most meals. Swallow eval scheduled for today. Current Diet Order/ Nutrition Support full liquid. Pertinent Medications D5-0.45ns, synthroid, seroquel , vit D3 Pertinent Labs 05/15 Glucose 120, alb 3.0 Nutritional Hx/Data Height 1.55 m Height (Calculated Centimeters) 154.9 Current Weight (lbs) 53.524 kg Weight (Calculated Kilograms) 53.5 Weight (Calculated Grams) 76758.9 Body Mass Index (BMI) 22.3 Weight Status Approriate GI Symptoms GI Symptoms None Last BM not indicated Skin Integrity/Comment: abrasion to left lower knee and right lower leg Current %PO Negligible < 25% Estimated Nutritional Goals BEE in Kcals: Using Current wt Calories/Kcals/Kg 25-30 Kcals Calculated 6701-4479 Protein: Using Current wt Protein g/k-1.2 Protein Calculated 54-65 Fluid: ml 1350-1620ml (1ml/kcal) Nutritional Problem 1. Problem Problem inadequete food intake Etiology possible mental status/poor appetite Signs/Symptoms: PO intake <25% Intervention/Recommendation Comments 1. Wait for swallow eval result. Advance diet per ST recommendation. Assist pt with meals. MD to consider appetite stimulant as needed. 2. Monitor PO intake, wt, labs and skin integrity 3. F/U as high risk in 2-3 days, 05/19-05/20 Expected Outcomes/Goals Expected Outcomes/Goals 1. PO intake to meet at least 75% of nutritional needs. 2. Wt stability, skin to remain intact, labs to approach WNL.
[2018-05-24 05:30] LABS: ANION GAP 9.5 (7.0-16.0); BUN - UREA NITROGEN 5 mg/dL (7-25); CALCIUM SERUM 9.4 mg/dL (8.6-10.3); CARBON DIOXIDE 27.1 mEq/L (21.0-31.0); CHLORIDE 104 mEq/L (98-107); CREATININE - SERUM 0.6 mg/dL (0.6-1.2); GFR AFRICAN-AMERICAN > 60.0 ml/min (>90); GFR NON AFRICAN-AMERICAN > 60.0 ml/min; GLUCOSE 106 mg/dL (70-105); POTASSIUM SERUM 3.6 mEq/L (3.5-5.1); SODIUM SERUM 137 mEq/L (136-145)
[2018-05-24] MEDS: Levothyroxine 0.025 Mg Tab PO SCH (06:31)
[2018-05-24 06:49] LABS: % BASOPHILS 0.3 % (0.0-2.0); % EOSINOPHILS 0.8 % (0.0-5.0); % LYMPHOCYTES 33.2 % (20.0-50.0); % MONOCYTES 7.5 % (2.0-10.0); % NEUTROPHILS 58.2 % (40.0-80.0); HEMATOCRIT 38.2 % (41.0-60); LYMPHOCYTE ABSOLUTE 1.9 Th/cmm (1.5-3.0); MEAN CELL VOLUME 101.9 fl (81-100); MEAN CORPUSCULAR HEMOGLOBIN 34.7 pg (27.0-31.0); MEAN CORPUSCULAR HGB CONC 34.1 pg (28.0-36.0); MEAN PLATELET VOLUME 7.3 fl; MONOCYTE ABSOLUTE 0.4 Th/cmm (0.3-1.0); NEUTROPHILE ABSOLUTE 3.3 Th/cmm (1.8-8.0); PLATELET COUNT 269 Th/cmm (150-400); RED BLOOD COUNT 3.75 Mil/cmm (3.80-5.10); RED CELL DISTRIBUTION WIDTH 13.6 % (11.5-20.0); WHITE BLOOD COUNT 5.6 Th/cmm (4.8-10.8)
[2018-05-24 06:54] LABS: INR 1.07 (0.5-1.4); PROTHROMBIN TIME (TEST) 11.1 SECONDS (9.5-11.5)
[2018-05-24] MEDS: Vitamin D3 2,000 IU SGL PO SCH (09:42)
[2018-05-24] MEDS: POLYETHYLENE GLYCOL 3350 17 GM PACK PO SCH (09:43)
[2018-05-24] MEDS: Lactulose 10 Gm/15 mL 30mL UDC PO SCH (09:43)
[2018-05-24] MEDS: CABERGOLINE 0.5 MG PO SCH (09:43)
[2018-05-24] MEDS: Metoclopramide 5 mg/mL 2mL Vial IVP SCH (09:47)
[2018-05-24] MEDS ORDERED: CEFAZOLIN IV ONE (11:00)
[2018-05-24] MEDS ORDERED: NS 0.9% IV ONE (11:00)
[2018-05-24] MEDS ORDERED: Lidocaine 2% Gel 5 mL TP ONE (11:30)
[2018-05-24] MEDS ORDERED: Propofol 10 mg/mL 20mL Vial **SURGERY USE ONLY IV ONE (11:30)
[2018-05-24] MEDS: D5-0.9%NS 1,000 ML IV SCH ×2 (13:24→20:52)
[2018-05-24] MEDS ORDERED: Morphine Sulfate 2 mg/mL 1mL Syr IVP PRN ×2 (15:27→15:29)
--- NOTE | 2018-05-24 15:37 | General Progress Note ---
Subjective - Review of Systems Events since last encounter: awake alert comfortable Subjective: patient awake admitted with failure to thrive is mentally challenge Objective - Results Result Diagrams: 05/24/18 04:50 05/24/18 04:50 Recent Labs: Laboratory Last Values WBC 5.6 Th/cmm (4.8-10.8) 05/24/18 04:50 RBC 3.75 Mil/cmm (3.80-5.10) L 05/24/18 04:50 Hgb 13.0 gm/dL (12-16) 05/24/18 04:50 Hct 38.2 % (41.0-60) L 05/24/18 04:50 MCV 101.9 fl (81-100) H 05/24/18 04:50 MCH 34.7 pg (27.0-31.0) H 05/24/18 04:50 MCHC Differential 34.1 pg (28.0-36.0) 05/24/18 04:50 RDW 13.6 % (11.5-20.0) 05/24/18 04:50 Plt Count 269 Th/cmm (150-400) 05/24/18 04:50 MPV 7.3 fl 05/24/18 04:50 Add Manual Diff YES 05/15/18 06:10 Neutrophils % 58.2 % (40.0-80.0) 05/24/18 04:50 Band Neutrophils % 4 % (0-10) 05/15/18 06:10 Lymphocytes % 33.2 % (20.0-50.0) 05/24/18 04:50 Monocytes % 7.5 % (2.0-10.0) 05/24/18 04:50 Eosinophils % 0.8 % (0.0-5.0) 05/24/18 04:50 Basophils % 0.3 % (0.0-2.0) 05/24/18 04:50 Neutrophils (Manual) 52 % (40-80) 05/15/18 06:10 Lymphocytes 30 % (20-50) 05/15/18 06:10 Monocytes 14 % (2-10) H 05/15/18 06:10 Eosinophils 0 % (0-5) 05/15/18 06:10 Basophils 0 % (0-3) 05/15/18 06:10 Platelet Estimate ADEQUATE (NORMAL) 05/14/18 22:40 Platelet Morphology NORMAL (NORMAL) 05/14/18 22:40 RBC Morph Micro Appear NORMAL (NORMAL) 05/14/18 22:40 PT 11.1 SECONDS (9.5-11.5) 05/24/18 04:50 INR 1.07 (0.5-1.4) 05/24/18 04:50 PTT (Actin FS) 28.2 SECONDS (26.0-38.0) 05/24/18 04:50 Sodium 137 mEq/L (136-145) 05/24/18 04:50 Potassium 3.6 mEq/L (3.5-5.1) 05/24/18 04:50 Chloride 104 mEq/L (98-107) 05/24/18 04:50 Carbon Dioxide 27.1 mEq/L (21.0-31.0) 05/24/18 04:50 Anion Gap 9.5 (7.0-16.0) 05/24/18 04:50 BUN 5 mg/dL (7-25) L 05/24/18 04:50 Creatinine 0.6 mg/dL (0.6-1.2) 05/24/18 04:50 Est GFR ( Amer) > 60.0 ml/min (>90) 05/24/18 04:50 Est GFR (Non-Af Amer) > 60.0 ml/min 05/24/18 04:50 BUN/Creatinine Ratio 8.3 05/24/18 04:50 Glucose 106 mg/dL (70-105) H 05/24/18 04:50 Calcium 9.4 mg/dL (8.6-10.3) 05/24/18 04:50 Phosphorus 3.6 mg/dL (2.5-5.0) 05/14/18 22:40 Magnesium 1.8 mg/dL (1.9-2.7) L 05/14/18 22:40 Total Bilirubin 0.5 mg/dL (0.3-1.0) 05/21/18 04:50 AST 12 U/L (13-39) L 05/21/18 04:50 ALT 9 U/L (7-52) 05/21/18 04:50 Alkaline Phosphatase 52 U/L (34-104) 05/21/18 04:50 Total Protein 5.9 gm/dL (6.0-8.3) L 05/21/18 04:50 Albumin 3.3 gm/dL (3.7-5.3) L 05/21/18 04:50 Globulin 2.6 gm/dL 05/21/18 04:50 Albumin/Globulin Ratio 1.3 (1.0-1.8) 05/21/18 04:50 Triglycerides 75 mg/dL (<150) 05/15/18 06:10 Cholesterol 147 mg/dL (<200) 05/15/18 06:10 LDL Cholesterol Direct 67 mg/dL (75-193) L 05/15/18 06:10 HDL Cholesterol 63 mg/dL (23-92) 05/15/18 06:10 TSH 3.28 uIU/ml (0.34-5.60) 05/15/18 06:10 Urine Source CATH 05/14/18 23:00 Urine Color YELLOW 05/14/18 23:00 Urine Clarity CLEAR (CLEAR) 05/14/18 23:00 Urine pH 7.0 (4.6 - 8.0) 05/14/18 23:00 Ur Specific [place] 1.015 (1.005-1.030) 05/14/18 23:00 Urine Protein 30 mg/dL (NEGATIVE) H 05/14/18 23:00 Urine Glucose (UA) NEGATIVE mg/dL (NEGATIVE) 05/14/18 23:00 Urine Ketones 40 mg/dL (NEGATIVE) H 05/14/18 23:00 Urine Blood LARGE (NEGATIVE) H 05/14/18 23:00 Urine Nitrate NEGATIVE (NEGATIVE) 05/14/18 23:00 Urine Bilirubin NEGATIVE (NEGATIVE) 05/14/18 23:00 Urine Urobilinogen 1.0 E.U./dL (0.2 - 1.0) 05/14/18 23:00 Ur Leukocyte Esterase NEGATIVE (NEGATIVE) 05/14/18 23:00 Urine RBC 10-25 /hpf (0-5) H 05/14/18 23:00 Urine WBC 2-5 /hpf (0-5) 05/14/18 23:00 Ur Epithelial Cells RARE /lpf (FEW) 05/14/18 23:00 Urine Bacteria NONE SEEN /hpf (NONE SEEN) 05/14/18 23:00 Urine Mucus FEW /lpf (FEW) 05/14/18 23:00 Urine Test NEGATIVE 05/24/18 10:05 Urine Opiates Screen NEGATIVE (NEGATIVE) 05/14/18 23:00 Urine Methadone Screen NEGATIVE (NEGATIVE) 05/14/18 23:00 Ur Barbiturates Screen NEGATIVE (NEGATIVE) 05/14/18 23:00 Valproic Acid < 10.0 ug/mL (50.0-100.0) L 05/21/18 04:50 Ur Tricyclics Screen POSITIVE (NEGATIVE) H 05/14/18 23:00 Ur Phencyclidine Scrn NEGATIVE (NEGATIVE) 05/14/18 23:00 Amphetamines Screen NEGATIVE (NEGATIVE) 05/14/18 23:00 U Methamphetamines Scrn NEGATIVE (NEGATIVE) 05/14/18 23:00 U Benzodiazepines Scrn NEGATIVE (NEGATIVE) 05/14/18 23:00 U Cocaine Metab Screen NEGATIVE (NEGATIVE) 05/14/18 23:00 U Cannabinoids Screen NEGATIVE (NEGATIVE) 05/14/18 23:00 Blood Type O POSITIVE 05/24/18 07:50 - Physical Exam Vitals and I&O: Vital Signs Temp 97.5 F 05/24/18 11:47 Pulse 77 05/24/18 11:47 Resp 18 05/24/18 11:47 BP 126/84 05/24/18 11:47 Pulse Ox 98 05/24/18 11:47 Intake & Output 05/23/18 05/24/18 05/24/18 18:59 06:59 18:59 Intake Total 1000 1000 Balance 1000 1000 Weight (lbs) 67.132 kg 67.132 kg Intake: Intake, IV Amount 1000 1000 D5-0.9%Ns 1,000 ml @ 50 1000 1000 mls/hr IV .Q20H REPLACED [facility] Rx#: [id number] Other: # Voids 2 # Bowel Movements 1 2 Stool Characteristics Soft Weight Source Bedscale Bedscale Active Medications: Current Medications Acetaminophen (Tylenol 650mg/20.3ml Suspension) 650 mg GT Q6H PRN PRN Reason: pain Stop: 07/23/18 13:39 Divalproex Sodium (Depakote Dr) 250 mg PO TID JOHN; Protocol Stop: 05/24/18 20:59 Last Admin: 05/24/18 14:04 Dose: Not Given Divalproex Sodium (Depakote Dr) 250 mg PO Q12HR JOHN; Protocol Stop: 07/23/18 20:59 Haloperidol (Haldol) 2 mg PO BID PRN; Protocol PRN Reason: Agitation Stop: 07/15/18 16:59 Haloperidol (Haldol) 2 mg PO BID JOHN Stop: 07/16/18 08:59 Last Admin: 05/24/18 09:43 Dose: Not Given Dextrose/Sodium Chloride (D5-0.9%Ns) 1,000 mls @ 50 mls/hr IV .Q20H JOHN Stop: 07/20/18 12:05 Last Admin: 05/24/18 13:24 Dose: 50 mls/hr Lactulose (Cephulac) 20 gm PO DAILY JOHN Stop: 07/14/18 08:59 Last Admin: 05/24/18 09:43 Dose: Not Given Levothyroxine Sodium (Synthroid) 0.025 mg PO QDAC JOHN Stop: 07/14/18 08:59 Last Admin: 05/24/18 06:31 Dose: Not Given Lorazepam (Ativan) 1 mg IVP Q4HR PRN; Protocol PRN Reason: Seizures Stop: 07/19/18 19:04 Last Admin: 05/24/18 15:31 Dose: 1 mg Morphine Sulfate (Morphine) 1 mg IVP Q4HR PRN PRN Reason: mild to moderate pain Stop: 07/23/18 15:26 Morphine Sulfate (Morphine) 2 mg IVP Q4HR PRN PRN Reason: Severe Pain Stop: 07/23/18 15:28 Ondansetron HCl (Zofran) 4 mg IV Q6H PRN PRN Reason: Nausea / Vomiting Stop: 07/14/18 09:50 Last Admin: 05/20/18 13:46 Dose: 4 mg Pantoprazole Sodium (Protonix) 40 mg IVP DAILY JOHN Stop: 07/20/18 11:59 Last Admin: 05/24/18 09:47 Dose: 40 mg Cabergoline 0.25mg (Tab) 1 PO QTHUR JOHN Stop: 07/26/18 08:59 Cabergoline 0.5mg (Tab) 1 PO QMON JOHN Stop: 07/20/18 15:29 Last Admin: 05/24/18 09:43 Dose: Not Given Polyethylene Glycol (Miralax) 17 gm PO DAILY JOHN Stop: 07/16/18 13:14 Last Admin: 05/24/18 09:43 Dose: Not Given Quetiapine Fumarate (Seroquel) 150 mg PO HS JOHN; Protocol Stop: 07/14/18 20:59 Last Admin: 05/23/18 21:40 Dose: Not Given Vitamin D (Vitamin D3) 2,000 iu PO DAILY JOHN Stop: 07/14/18 08:59 Last Admin: 05/24/18 09:42 Dose: Not Given General: No acute distress HEENT: Atraumatic Neck: Supple Cardiovascular: Regular rate Lungs: Clear to auscultation, Normal air movement Abdomen: Bowel sounds, Soft, no Tender, no Distended Assessment/Plan - Plan Plan: cpm Nutritional Asmnt/Malnutr-PDOC - Dietary Evaluation Malnutrition Findings (Please click <Entered> for more info): Nutritional Asmnt/Malnutrition Start: 05/17/18 11: 40 Text: Status: Complete Freq: Protocol: Document 05/17/18 11:40 KRISG (Rec: 05/17/18 11:51 CHAD [email or web address]) Nutritional Asmnt/Malnutrition Patient General Information Nutritional Screening High Risk Diagnosis FTT Pertinent Medical Hx/Surgical Hx mental retardation, hypothyroidism. Subjective Information Pt was not able to communicate d/t mental status. Per nurse, pt has been refusing to eat. Per EMR, PO intake 0% of most meals. Swallow eval scheduled for today. Current Diet Order/ Nutrition Support full liquid. Pertinent Medications D5-0.45ns, synthroid, seroquel , vit D3 Pertinent Labs 05/15 Glucose 120, alb 3.0 Nutritional Hx/Data Height 1.55 m Height (Calculated Centimeters) 154.9 Current Weight (lbs) 53.524 kg Weight (Calculated Kilograms) 53.5 Weight (Calculated Grams) 39451.9 Body Mass Index (BMI) 22.3 Weight Status Approriate GI Symptoms GI Symptoms None Last BM not indicated Skin Integrity/Comment: abrasion to left lower knee and right lower leg Current %PO Negligible < 25% Estimated Nutritional Goals BEE in Kcals: Using Current wt Calories/Kcals/Kg 25-30 Kcals Calculated 3889-6162 Protein: Using Current wt Protein g/k-1.2 Protein Calculated 54-65 Fluid: ml 1350-1620ml (1ml/kcal) Nutritional Problem 1. Problem Problem inadequete food intake Etiology possible mental status/poor appetite Signs/Symptoms: PO intake <25% Intervention/Recommendation Comments 1. Wait for swallow eval result. Advance diet per ST recommendation. Assist pt with meals. MD to consider appetite stimulant as needed. 2. Monitor PO intake, wt, labs and skin integrity 3. F/U as high risk in 2-3 days, 05/19-05/20 Expected Outcomes/Goals Expected Outcomes/Goals 1. PO intake to meet at least 75% of nutritional needs. 2. Wt stability, skin to remain intact, labs to approach WNL.
--- NOTE | 2018-05-24 16:56 | Operative Report ---
DATE OF SURGERY: 05/24/2018 PROCEDURE: Esophagogastroduodenoscopy with biopsy and G-tube insertion. PREOPERATIVE DIAGNOSES: Dysphagia and anorexia with vomiting. POSTPROCEDURE DIAGNOSES: 1. Mild erosive esophagitis, status post biopsy. 2. Mild gastritis, status post biopsy and CLOtest. 3. Small gastric body polyp, excised by biopsy forceps. 4. Normal duodenum, status post biopsy, rule out celiac disease. 5. Status post successful 20-Yoruba G-tube insertion via pull technique. INDICATIONS: A 37-year-old mentally challenged female with a few day history of persistent nausea and vomiting and poor oral intake with failure to thrive, undergoing an upper endoscopy for G-tube insertion for long-term nutritional purposes and medication delivery. It is also to evaluate for the patient's nausea, vomiting, and anorexia. CONSENT: Informed consent was obtained from the patient's mother prior to procedure after explaining risks, benefits, alternatives including but not limited to infection, bleeding, perforation, and . SEDATION: Monitored anesthesia care per Dr. Hernandez. DESCRIPTION OF PROCEDURE AND FINDINGS: The procedure took place as an inpatient in the GI suite of [facility]. The patient was kept in a supine position with head of bed slightly elevated. Adequate sedation was achieved by Dr. Hernandez. An Olympus diagnostic upper endoscope was advanced via the patient's mouth and into the esophagus. The distal esophagus contained mild erosive esophagitis. Biopsies were obtained from here to rule out occult Teran esophagus or dysplasia. The Z line was at approximately 32 cm on the gums. Retroflexion in the stomach revealed no GE junction mass or varices. No obvious hiatal hernia was identified. A benign appearing 5 mm gastric body polyp along the greater curvature was removed with biopsy forceps. There is mild underlying gastritis in the antrum. Biopsies were obtained, and submitted for CLOtest as well as pathology. The pyloric channel and duodenum up to second portion appeared normal. Random biopsies were obtained from second portion to rule out celiac disease. The scope was withdrawn back into the stomach. Air was insufflated in the stomach. An area in the epigastric skin was chosen for G-tube insertion based on transillumination and finger indentation. This area in the skin was then prepped and draped using sterile technique and anesthetized with 5 mL of 1% lidocaine. A scalpel blade was used to make a 1 cm incision in the skin. This was followed by trocar needle insertion through the skin incision with the tip noted endoscopically in the stomach. A guidewire was then advanced via the trocar needle and grasped via snare device in the stomach. The scope along with the snare device holding on to the guidewire was then pulled out through the patient's mouth. A 20-Yoruba G-tube was attached to the wire and then, via pull technique, pulled across the abdominal wall of the patient. The outer bumper was placed at the 4 cm santy. Overlying dressing was placed. The tube was noted to be in good position. The patient tolerated the procedure well and no complications are anticipated. RECOMMENDATIONS: 1. May use G-tube for water flushes and medications today and start feedings either later on today or tomorrow morning. 2. Follow up biopsy results. 3. Continue Protonix. 4. Oral diet as per speech pathology. Thank you Dr. Nick Liao for involving us in the care of this patient. If you have any further questions, please call us. JOB# [id number] MTDD
[2018-05-25 06:39] LABS: % BASOPHILS 0.2 % (0.0-2.0); % EOSINOPHILS 0.5 % (0.0-5.0); % LYMPHOCYTES 29.5 % (20.0-50.0); % MONOCYTES 8.3 % (2.0-10.0); % NEUTROPHILS 61.5 % (40.0-80.0); HEMOGLOBIN 13.1 gm/dL (12-16); LYMPHOCYTE ABSOLUTE 1.9 Th/cmm (1.5-3.0); MEAN CELL VOLUME 101.7 fl (81-100); MEAN CORPUSCULAR HGB CONC 34.5 pg (28.0-36.0); MEAN PLATELET VOLUME 7.5 fl; MONOCYTE ABSOLUTE 0.5 Th/cmm (0.3-1.0); NEUTROPHILE ABSOLUTE 4.2 Th/cmm (1.8-8.0); PLATELET COUNT 246 Th/cmm (150-400); RED BLOOD COUNT 3.74 Mil/cmm (3.80-5.10); RED CELL DISTRIBUTION WIDTH 13.9 % (11.5-20.0); WHITE BLOOD COUNT 6.6 Th/cmm (4.8-10.8)
[2018-05-25] MEDS: Levothyroxine 0.025 Mg Tab PO SCH (06:42)
[2018-05-25 06:59] LABS: ANION GAP 11.1 (7.0-16.0); BUN - UREA NITROGEN 5 mg/dL (7-25); CALCIUM SERUM 9.5 mg/dL (8.6-10.3); CARBON DIOXIDE 25.2 mEq/L (21.0-31.0); CHLORIDE 104 mEq/L (98-107); CREATININE - SERUM 0.5 mg/dL (0.6-1.2); GFR AFRICAN-AMERICAN > 60.0 ml/min (>90); GFR NON AFRICAN-AMERICAN > 60.0 ml/min; GLUCOSE 110 mg/dL (70-105); POTASSIUM SERUM 3.3 mEq/L (3.5-5.1); SODIUM SERUM 137 mEq/L (136-145)
[2018-05-25] MEDS: POLYETHYLENE GLYCOL 3350 17 GM PACK PO SCH (09:06)
[2018-05-25] MEDS: Lactulose 10 Gm/15 mL 30mL UDC PO SCH (09:06)
[2018-05-25] MEDS: Vitamin D3 2,000 IU SGL PO SCH (09:07)
--- NOTE | 2018-05-25 15:27 | Pathology Report ---
[id number] Collection date: 05/24/2018 Surgeon: Dr. Yohan Vargas Specimen Description: 1. Duodenum biopsy 2. Antrum biopsy 3. Gastric polyp biopsy 4. Esophageal biopsy Gross Description: Part I: Received in formalin are two matta soft tissue fragments each measuring 0.1 cm in greatest dimension. Totally submitted in one cassette labeled A. Gross Description: Part II: Received in formalin is a single matta soft tissue fragment measuring 0.3 cm in greatest dimension. Totally submitted in one cassette labeled B. Gross Description: Part III: Received in formalin is a single matta soft tissue fragment measuring 0.1 cm in greatest dimension. Totally submitted in one cassette labeled C. Gross Description: Part IV: Received in formalin are two matta soft tissue fragments each measuring 0.1 cm in greatest dimension. Totally submitted in one cassette labeled D. Microscopic Description: Part I: The histologic sections show duodenal mucosa with intact intestinal villi, showing no evidence for villous abnormality. Diagnosis: Part I: No evidence for celiac disease/sprue (duodenum biopsy). Microscopic Description: Part II: The histologic sections show gastric mucosa with mild chronic inflammation present consisting of lymphocytes and plasma cells. The Giemsa stain shows no evidence for Helicobacter pylori. Diagnosis: Part II: 1. Mild chronic gastritis, antrum biopsy. 2. The Giemsa stain is negative for Helicobacter pylori. Microscopic Description: Part III: The histologic sections show gastric mucosa with several cystically dilated glands consistent with benign hyperplastic gastric polyp. There is no evidence for atypia. Diagnosis: Part III: Benign hyperplastic gastric polyp. Microscopic Description: Part IV: The histologic sections show benign squamous mucosa consistent with esophageal biopsy. There is mild chronic inflammation present consisting of lymphocytes and plasma cells. The Alcian blue stain shows no significant abnormalities. The PAS stain shows no evidence for fungal organisms. Diagnosis: Part IV: Mild chronic inflammation consistent with chronic esophagitis (esophageal biopsy). [facility]# [id number] [facility]
--- NOTE | 2018-05-25 21:24 | GI Progress Note ---
Subjective - Review of Systems Service Date: 05/25/18 (SEEN AT 0930) Subjective: EVENTS NOTED. RY GT FEEDS 20. Objective - Results Result Diagrams: 05/25/18 05:30 05/25/18 05:30 Recent Labs: Laboratory Last Values WBC 6.6 Th/cmm (4.8-10.8) 05/25/18 05:30 RBC 3.74 Mil/cmm (3.80-5.10) L 05/25/18 05:30 Hgb 13.1 gm/dL (12-16) 05/25/18 05:30 Hct 38.0 % (41.0-60) L 05/25/18 05:30 MCV 101.7 fl (81-100) H 05/25/18 05:30 MCH 35.0 pg (27.0-31.0) H 05/25/18 05:30 MCHC Differential 34.5 pg (28.0-36.0) 05/25/18 05:30 RDW 13.9 % (11.5-20.0) 05/25/18 05:30 Plt Count 246 Th/cmm (150-400) 05/25/18 05:30 MPV 7.5 fl 05/25/18 05:30 Add Manual Diff YES 05/15/18 06:10 Neutrophils % 61.5 % (40.0-80.0) 05/25/18 05:30 Band Neutrophils % 4 % (0-10) 05/15/18 06:10 Lymphocytes % 29.5 % (20.0-50.0) 05/25/18 05:30 Monocytes % 8.3 % (2.0-10.0) 05/25/18 05:30 Eosinophils % 0.5 % (0.0-5.0) 05/25/18 05:30 Basophils % 0.2 % (0.0-2.0) 05/25/18 05:30 Neutrophils (Manual) 52 % (40-80) 05/15/18 06:10 Lymphocytes 30 % (20-50) 05/15/18 06:10 Monocytes 14 % (2-10) H 05/15/18 06:10 Eosinophils 0 % (0-5) 05/15/18 06:10 Basophils 0 % (0-3) 05/15/18 06:10 Platelet Estimate ADEQUATE (NORMAL) 05/14/18 22:40 Platelet Morphology NORMAL (NORMAL) 05/14/18 22:40 RBC Morph Micro Appear NORMAL (NORMAL) 05/14/18 22:40 PT 11.1 SECONDS (9.5-11.5) 05/24/18 04:50 INR 1.07 (0.5-1.4) 05/24/18 04:50 PTT (Actin FS) 28.2 SECONDS (26.0-38.0) 05/24/18 04:50 Sodium 137 mEq/L (136-145) 05/25/18 05:30 Potassium 3.3 mEq/L (3.5-5.1) L 05/25/18 05:30 Chloride 104 mEq/L (98-107) 05/25/18 05:30 Carbon Dioxide 25.2 mEq/L (21.0-31.0) 05/25/18 05:30 Anion Gap 11.1 (7.0-16.0) 05/25/18 05:30 BUN 5 mg/dL (7-25) L 05/25/18 05:30 Creatinine 0.5 mg/dL (0.6-1.2) L 05/25/18 05:30 Est GFR ( Amer) > 60.0 ml/min (>90) 05/25/18 05:30 Est GFR (Non-Af Amer) > 60.0 ml/min 05/25/18 05:30 BUN/Creatinine Ratio 10.0 05/25/18 05:30 Glucose 110 mg/dL (70-105) H 05/25/18 05:30 Calcium 9.5 mg/dL (8.6-10.3) 05/25/18 05:30 Phosphorus 3.6 mg/dL (2.5-5.0) 05/14/18 22:40 Magnesium 1.8 mg/dL (1.9-2.7) L 05/14/18 22:40 Total Bilirubin 0.5 mg/dL (0.3-1.0) 05/21/18 04:50 AST 12 U/L (13-39) L 05/21/18 04:50 ALT 9 U/L (7-52) 05/21/18 04:50 Alkaline Phosphatase 52 U/L (34-104) 05/21/18 04:50 Total Protein 5.9 gm/dL (6.0-8.3) L 05/21/18 04:50 Albumin 3.3 gm/dL (3.7-5.3) L 05/21/18 04:50 Globulin 2.6 gm/dL 05/21/18 04:50 Albumin/Globulin Ratio 1.3 (1.0-1.8) 05/21/18 04:50 Triglycerides 75 mg/dL (<150) 05/15/18 06:10 Cholesterol 147 mg/dL (<200) 05/15/18 06:10 LDL Cholesterol Direct 67 mg/dL (75-193) L 05/15/18 06:10 HDL Cholesterol 63 mg/dL (23-92) 05/15/18 06:10 TSH 3.28 uIU/ml (0.34-5.60) 05/15/18 06:10 Urine Source CATH 05/14/18 23:00 Urine Color YELLOW 05/14/18 23:00 Urine Clarity CLEAR (CLEAR) 05/14/18 23:00 Urine pH 7.0 (4.6 - 8.0) 05/14/18 23:00 Ur Specific [place] 1.015 (1.005-1.030) 05/14/18 23:00 Urine Protein 30 mg/dL (NEGATIVE) H 05/14/18 23:00 Urine Glucose (UA) NEGATIVE mg/dL (NEGATIVE) 05/14/18 23:00 Urine Ketones 40 mg/dL (NEGATIVE) H 05/14/18 23:00 Urine Blood LARGE (NEGATIVE) H 05/14/18 23:00 Urine Nitrate NEGATIVE (NEGATIVE) 05/14/18 23:00 Urine Bilirubin NEGATIVE (NEGATIVE) 05/14/18 23:00 Urine Urobilinogen 1.0 E.U./dL (0.2 - 1.0) 05/14/18 23:00 Ur Leukocyte Esterase NEGATIVE (NEGATIVE) 05/14/18 23:00 Urine RBC 10-25 /hpf (0-5) H 05/14/18 23:00 Urine WBC 2-5 /hpf (0-5) 05/14/18 23:00 Ur Epithelial Cells RARE /lpf (FEW) 05/14/18 23:00 Urine Bacteria NONE SEEN /hpf (NONE SEEN) 05/14/18 23:00 Urine Mucus FEW /lpf (FEW) 05/14/18 23:00 Urine Test NEGATIVE 05/24/18 10:05 Urine Opiates Screen NEGATIVE (NEGATIVE) 05/14/18 23:00 Urine Methadone Screen NEGATIVE (NEGATIVE) 05/14/18 23:00 Ur Barbiturates Screen NEGATIVE (NEGATIVE) 05/14/18 23:00 Valproic Acid < 10.0 ug/mL (50.0-100.0) L 05/21/18 04:50 Ur Tricyclics Screen POSITIVE (NEGATIVE) H 05/14/18 23:00 Ur Phencyclidine Scrn NEGATIVE (NEGATIVE) 05/14/18 23:00 Amphetamines Screen NEGATIVE (NEGATIVE) 05/14/18 23:00 U Methamphetamines Scrn NEGATIVE (NEGATIVE) 05/14/18 23:00 U Benzodiazepines Scrn NEGATIVE (NEGATIVE) 05/14/18 23:00 U Cocaine Metab Screen NEGATIVE (NEGATIVE) 05/14/18 23:00 U Cannabinoids Screen NEGATIVE (NEGATIVE) 05/14/18 23:00 Helicobacter pylori Ab NEGATIVE (NEGATIVE) 05/24/18 11:45 Blood Type O POSITIVE 05/24/18 07:50 - Physical Exam Vitals and I&O: Vital Signs Temp 98.0 F 05/25/18 20:00 Pulse 87 05/25/18 20:00 Resp 18 05/25/18 20:00 BP 130/74 05/25/18 20:00 Pulse Ox 98 05/25/18 20:00 Intake & Output 05/25/18 05/25/18 05/26/18 06:59 18:59 06:59 Intake Total 623.333 360 Output Total 4 Balance 623.333 356 Weight (lbs) 65.771 kg 65.771 kg Intake: Intake, IV Amount 373.333 D5-0.9%Ns 1,000 ml @ 50 373.333 mls/hr IV .Q20H [facility] Rx#: [id number] Tube Feeding 100 360 Other 150 Output: Urine 4 Other: # Voids 3 # Bowel Movements 0 2 Weight Source Bedscale Bedscale Active Medications: Current Medications Acetaminophen (Tylenol 650mg/20.3ml Suspension) 650 mg GT Q6H PRN PRN Reason: pain Stop: 07/23/18 13:39 Divalproex Sodium (Depakote Dr) 250 mg PO Q12HR JOHN; Protocol Stop: 07/23/18 20:59 Last Admin: 05/25/18 09:07 Dose: 250 mg Haloperidol (Haldol) 2 mg PO BID PRN; Protocol PRN Reason: Agitation Stop: 07/15/18 16:59 Haloperidol (Haldol) 2 mg PO BID JOHN Stop: 07/16/18 08:59 Last Admin: 05/25/18 17:03 Dose: Not Given Dextrose/Sodium Chloride (D5-0.9%Ns) 1,000 mls @ 50 mls/hr IV .Q20H JOHN Stop: 07/20/18 12:05 Last Admin: 05/24/18 20:52 Dose: 50 mls/hr Lactulose (Cephulac) 20 gm PO DAILY JOHN Stop: 07/14/18 08:59 Last Admin: 05/25/18 09:06 Dose: 20 gm Levothyroxine Sodium (Synthroid) 0.025 mg PO QDAC JOHN Stop: 07/14/18 08:59 Last Admin: 05/25/18 06:42 Dose: 0.025 mg Lorazepam (Ativan) 1 mg IVP Q4HR PRN; Protocol PRN Reason: Seizures Stop: 07/19/18 19:04 Last Admin: 05/24/18 15:31 Dose: 1 mg Morphine Sulfate (Morphine) 1 mg IVP Q4HR PRN PRN Reason: mild to moderate pain Stop: 07/23/18 15:26 Last Admin: 05/24/18 16:29 Dose: 1 mg Morphine Sulfate (Morphine) 2 mg IVP Q4HR PRN PRN Reason: Severe Pain Stop: 07/23/18 15:28 Ondansetron HCl (Zofran) 4 mg IV Q6H PRN PRN Reason: Nausea / Vomiting Stop: 07/14/18 09:50 Last Admin: 05/20/18 13:46 Dose: 4 mg Pantoprazole Sodium (Protonix) 40 mg IVP DAILY [facility] Stop: 07/20/18 11:59 Last Admin: 05/25/18 09:06 Dose: 40 mg Cabergoline 0.25mg (Tab) 1 PO QTHUR JOHN Stop: 07/26/18 08:59 Cabergoline 0.5mg (Tab) 1 PO QMON [facility] Stop: 07/20/18 15:29 Last Admin: 05/24/18 09:43 Dose: Not Given Polyethylene Glycol (Miralax) 17 gm PO DAILY JOHN Stop: 07/16/18 13:14 Last Admin: 05/25/18 09:06 Dose: 17 gm Quetiapine Fumarate (Seroquel) 150 mg PO HS JOHN; Protocol Stop: 07/14/18 20:59 Last Admin: 05/24/18 20:44 Dose: 150 mg Vitamin D (Vitamin D3) 2,000 iu PO DAILY JOHN Stop: 07/14/18 08:59 Last Admin: 05/25/18 09:07 Dose: 2,000 iu General: No acute distress HEENT: Atraumatic Neck: Supple Cardiovascular: Regular rate Lungs: Clear to auscultation, Normal air movement Abdomen: Bowel sounds, Soft, Other (INTACT GT, BINDER), no Tender, no Distended - Procedures Procedures: Procedures Procedure Code Date EXCISION OF STOMACH, ENDO, DIAGN [id number] 05/15/18 INSERTION OF FEEDING DEVICE INTO STOMACH, OPEN APPROACH [id number] 05/15/18 Assessment/Plan - Assessment Assessment: IMPRESSION: 1. Refusal to eat with N/V s/p PEG insertion 05/24. EGD also showed mild gastritis. 2. MR. 3. constipation 4. Sz. RECS: -Advance GT feeds as tolerated. -Protonix IV. -Reglan IV. -Follow-up biopsy results.
[2018-05-25] MEDS: D5-0.9%NS 1,000 ML IV SCH (21:59)
[2018-05-26] MEDS: POLYETHYLENE GLYCOL 3350 17 GM PACK PO SCH (09:45)
[2018-05-26] MEDS: Lactulose 10 Gm/15 mL 30mL UDC PO SCH (09:45)
[2018-05-26] MEDS: Vitamin D3 2,000 IU SGL PO SCH (09:48)
[2018-05-26] MEDS: Levothyroxine 0.025 Mg Tab PO SCH (09:50)
--- NOTE | 2018-05-26 14:10 | General Progress Note ---
Subjective - Review of Systems Events since last encounter: in no distress Subjective: patient awake admitted with failure to thrive is mentally challenge Objective - Results Result Diagrams: 05/25/18 05:30 05/25/18 05:30 Recent Labs: Laboratory Last Values WBC 6.6 Th/cmm (4.8-10.8) 05/25/18 05:30 RBC 3.74 Mil/cmm (3.80-5.10) L 05/25/18 05:30 Hgb 13.1 gm/dL (12-16) 05/25/18 05:30 Hct 38.0 % (41.0-60) L 05/25/18 05:30 MCV 101.7 fl (81-100) H 05/25/18 05:30 MCH 35.0 pg (27.0-31.0) H 05/25/18 05:30 MCHC Differential 34.5 pg (28.0-36.0) 05/25/18 05:30 RDW 13.9 % (11.5-20.0) 05/25/18 05:30 Plt Count 246 Th/cmm (150-400) 05/25/18 05:30 MPV 7.5 fl 05/25/18 05:30 Add Manual Diff YES 05/15/18 06:10 Neutrophils % 61.5 % (40.0-80.0) 05/25/18 05:30 Band Neutrophils % 4 % (0-10) 05/15/18 06:10 Lymphocytes % 29.5 % (20.0-50.0) 05/25/18 05:30 Monocytes % 8.3 % (2.0-10.0) 05/25/18 05:30 Eosinophils % 0.5 % (0.0-5.0) 05/25/18 05:30 Basophils % 0.2 % (0.0-2.0) 05/25/18 05:30 Neutrophils (Manual) 52 % (40-80) 05/15/18 06:10 Lymphocytes 30 % (20-50) 05/15/18 06:10 Monocytes 14 % (2-10) H 05/15/18 06:10 Eosinophils 0 % (0-5) 05/15/18 06:10 Basophils 0 % (0-3) 05/15/18 06:10 Platelet Estimate ADEQUATE (NORMAL) 05/14/18 22:40 Platelet Morphology NORMAL (NORMAL) 05/14/18 22:40 RBC Morph Micro Appear NORMAL (NORMAL) 05/14/18 22:40 PT 11.1 SECONDS (9.5-11.5) 05/24/18 04:50 INR 1.07 (0.5-1.4) 05/24/18 04:50 PTT (Actin FS) 28.2 SECONDS (26.0-38.0) 05/24/18 04:50 Sodium 137 mEq/L (136-145) 05/25/18 05:30 Potassium 3.3 mEq/L (3.5-5.1) L 05/25/18 05:30 Chloride 104 mEq/L (98-107) 05/25/18 05:30 Carbon Dioxide 25.2 mEq/L (21.0-31.0) 05/25/18 05:30 Anion Gap 11.1 (7.0-16.0) 05/25/18 05:30 BUN 5 mg/dL (7-25) L 05/25/18 05:30 Creatinine 0.5 mg/dL (0.6-1.2) L 05/25/18 05:30 Est GFR ( Amer) > 60.0 ml/min (>90) 05/25/18 05:30 Est GFR (Non-Af Amer) > 60.0 ml/min 05/25/18 05:30 BUN/Creatinine Ratio 10.0 05/25/18 05:30 Glucose 110 mg/dL (70-105) H 05/25/18 05:30 Calcium 9.5 mg/dL (8.6-10.3) 05/25/18 05:30 Phosphorus 3.6 mg/dL (2.5-5.0) 05/14/18 22:40 Magnesium 1.8 mg/dL (1.9-2.7) L 05/14/18 22:40 Total Bilirubin 0.5 mg/dL (0.3-1.0) 05/21/18 04:50 AST 12 U/L (13-39) L 05/21/18 04:50 ALT 9 U/L (7-52) 05/21/18 04:50 Alkaline Phosphatase 52 U/L (34-104) 05/21/18 04:50 Total Protein 5.9 gm/dL (6.0-8.3) L 05/21/18 04:50 Albumin 3.3 gm/dL (3.7-5.3) L 05/21/18 04:50 Globulin 2.6 gm/dL 05/21/18 04:50 Albumin/Globulin Ratio 1.3 (1.0-1.8) 05/21/18 04:50 Triglycerides 75 mg/dL (<150) 05/15/18 06:10 Cholesterol 147 mg/dL (<200) 05/15/18 06:10 LDL Cholesterol Direct 67 mg/dL (75-193) L 05/15/18 06:10 HDL Cholesterol 63 mg/dL (23-92) 05/15/18 06:10 TSH 3.28 uIU/ml (0.34-5.60) 05/15/18 06:10 Urine Source CATH 05/14/18 23:00 Urine Color YELLOW 05/14/18 23:00 Urine Clarity CLEAR (CLEAR) 05/14/18 23:00 Urine pH 7.0 (4.6 - 8.0) 05/14/18 23:00 Ur Specific [place] 1.015 (1.005-1.030) 05/14/18 23:00 Urine Protein 30 mg/dL (NEGATIVE) H 05/14/18 23:00 Urine Glucose (UA) NEGATIVE mg/dL (NEGATIVE) 05/14/18 23:00 Urine Ketones 40 mg/dL (NEGATIVE) H 05/14/18 23:00 Urine Blood LARGE (NEGATIVE) H 05/14/18 23:00 Urine Nitrate NEGATIVE (NEGATIVE) 05/14/18 23:00 Urine Bilirubin NEGATIVE (NEGATIVE) 05/14/18 23:00 Urine Urobilinogen 1.0 E.U./dL (0.2 - 1.0) 05/14/18 23:00 Ur Leukocyte Esterase NEGATIVE (NEGATIVE) 05/14/18 23:00 Urine RBC 10-25 /hpf (0-5) H 05/14/18 23:00 Urine WBC 2-5 /hpf (0-5) 05/14/18 23:00 Ur Epithelial Cells RARE /lpf (FEW) 05/14/18 23:00 Urine Bacteria NONE SEEN /hpf (NONE SEEN) 05/14/18 23:00 Urine Mucus FEW /lpf (FEW) 05/14/18 23:00 Urine Test NEGATIVE 05/24/18 10:05 Urine Opiates Screen NEGATIVE (NEGATIVE) 05/14/18 23:00 Urine Methadone Screen NEGATIVE (NEGATIVE) 05/14/18 23:00 Ur Barbiturates Screen NEGATIVE (NEGATIVE) 05/14/18 23:00 Valproic Acid < 10.0 ug/mL (50.0-100.0) L 05/21/18 04:50 Ur Tricyclics Screen POSITIVE (NEGATIVE) H 05/14/18 23:00 Ur Phencyclidine Scrn NEGATIVE (NEGATIVE) 05/14/18 23:00 Amphetamines Screen NEGATIVE (NEGATIVE) 05/14/18 23:00 U Methamphetamines Scrn NEGATIVE (NEGATIVE) 05/14/18 23:00 U Benzodiazepines Scrn NEGATIVE (NEGATIVE) 05/14/18 23:00 U Cocaine Metab Screen NEGATIVE (NEGATIVE) 05/14/18 23:00 U Cannabinoids Screen NEGATIVE (NEGATIVE) 05/14/18 23:00 Helicobacter pylori Ab NEGATIVE (NEGATIVE) 05/24/18 11:45 Blood Type O POSITIVE 05/24/18 07:50 - Physical Exam Vitals and I&O: Vital Signs Temp 98.3 F 05/26/18 12:00 Pulse 70 05/26/18 12:00 Resp 17 05/26/18 12:00 BP 102/69 05/26/18 12:00 Pulse Ox 97 05/26/18 12:00 Intake & Output 05/25/18 05/26/18 05/26/18 18:59 06:59 18:59 Intake Total 1360 480 Output Total 4 Balance 1356 480 Weight (lbs) 65.771 kg 65.771 kg 65.771 kg Intake: Intake, IV Amount 1000 D5-0.9%Ns 1,000 ml @ 50 1000 mls/hr IV .Q20H [facility] Rx#: [id number] Tube Feeding 360 TPN/PPN 480 Output: Urine 4 Other: # Voids 3 # Bowel Movements 2 Stool Characteristics Soft Weight Source Bedscale Bedscale Bedscale Active Medications: Current Medications Acetaminophen (Tylenol 650mg/20.3ml Suspension) 650 mg GT Q6H PRN PRN Reason: pain Stop: 07/23/18 13:39 Divalproex Sodium (Depakote Dr) 250 mg PO Q12HR JOHN; Protocol Stop: 07/23/18 20:59 Last Admin: 05/26/18 09:48 Dose: 250 mg Haloperidol (Haldol) 2 mg PO BID PRN; Protocol PRN Reason: Agitation Stop: 07/15/18 16:59 Haloperidol (Haldol) 2 mg PO BID JOHN Stop: 07/16/18 08:59 Last Admin: 05/26/18 09:47 Dose: 2 mg Dextrose/Sodium Chloride (D5-0.9%Ns) 1,000 mls @ 50 mls/hr IV .Q20H JOHN Stop: 07/20/18 12:05 Last Admin: 05/25/18 21:59 Dose: 50 mls/hr Lactulose (Cephulac) 20 gm PO DAILY JOHN Stop: 07/14/18 08:59 Last Admin: 05/26/18 09:45 Dose: 20 gm Levothyroxine Sodium (Synthroid) 0.025 mg PO QDAC JOHN Stop: 07/14/18 08:59 Last Admin: 05/26/18 09:50 Dose: 0.025 mg Lorazepam (Ativan) 1 mg IVP Q4HR PRN; Protocol PRN Reason: Seizures Stop: 07/19/18 19:04 Last Admin: 05/24/18 15:31 Dose: 1 mg Morphine Sulfate (Morphine) 1 mg IVP Q4HR PRN PRN Reason: mild to moderate pain Stop: 07/23/18 15:26 Last Admin: 05/24/18 16:29 Dose: 1 mg Morphine Sulfate (Morphine) 2 mg IVP Q4HR PRN PRN Reason: Severe Pain Stop: 07/23/18 15:28 Ondansetron HCl (Zofran) 4 mg IV Q6H PRN PRN Reason: Nausea / Vomiting Stop: 07/14/18 09:50 Last Admin: 05/20/18 13:46 Dose: 4 mg Pantoprazole Sodium (Protonix) 40 mg IVP DAILY [facility] Stop: 07/20/18 11:59 Last Admin: 05/26/18 09:46 Dose: 40 mg Cabergoline 0.25mg (Tab) 1 PO QTHUR JOHN Stop: 07/26/18 08:59 Cabergoline 0.5mg (Tab) 1 PO QMON [facility] Stop: 07/20/18 15:29 Last Admin: 05/24/18 09:43 Dose: Not Given Polyethylene Glycol (Miralax) 17 gm PO DAILY JOHN Stop: 07/16/18 13:14 Last Admin: 05/26/18 09:45 Dose: 17 gm Quetiapine Fumarate (Seroquel) 150 mg PO HS JOHN; Protocol Stop: 07/14/18 20:59 Last Admin: 05/25/18 21:42 Dose: 150 mg Vitamin D (Vitamin D3) 2,000 iu PO DAILY JOHN Stop: 07/14/18 08:59 Last Admin: 05/26/18 09:48 Dose: 2,000 iu General: No acute distress HEENT: Atraumatic Neck: Supple Cardiovascular: Regular rate Lungs: Clear to auscultation, Normal air movement Abdomen: Bowel sounds, Soft, Other (INTACT GT, BINDER), no Tender, no Distended - Procedures Procedures: Procedures Procedure Code Date EXCISION OF STOMACH, ENDO, DIAGN [id number] 05/15/18 INSERTION OF FEEDING DEVICE INTO STOMACH, OPEN APPROACH [id number] 05/15/18 Assessment/Plan - Plan Plan: cpm Nutritional Asmnt/Malnutr-PDOC - Dietary Evaluation Malnutrition Findings (Please click <Entered> for more info): Nutritional Asmnt/Malnutrition Start: 05/17/18 11: 40 Text: Status: Complete Freq: Protocol: Document 05/17/18 11:40 [email or web address] (Rec: 05/17/18 11:51 [email or web address] [email or web address]) Nutritional Asmnt/Malnutrition Patient General Information Nutritional Screening High Risk Diagnosis FTT Pertinent Medical Hx/Surgical Hx mental retardation, hypothyroidism. Subjective Information Pt was not able to communicate d/t mental status. Per nurse, pt has been refusing to eat. Per EMR, PO intake 0% of most meals. Swallow eval scheduled for today. Current Diet Order/ Nutrition Support full liquid. Pertinent Medications D5-0.45ns, synthroid, seroquel , vit D3 Pertinent Labs 05/15 Glucose 120, alb 3.0 Nutritional Hx/Data Height 1.55 m Height (Calculated Centimeters) 154.9 Current Weight (lbs) 53.524 kg Weight (Calculated Kilograms) 53.5 Weight (Calculated Grams) 95361.9 Body Mass Index (BMI) 22.3 Weight Status Approriate GI Symptoms GI Symptoms None Last BM not indicated Skin Integrity/Comment: abrasion to left lower knee and right lower leg Current %PO Negligible < 25% Estimated Nutritional Goals BEE in Kcals: Using Current wt Calories/Kcals/Kg 25-30 Kcals Calculated [id number] Protein: Using Current wt Protein g/k-1.2 Protein Calculated 54-65 Fluid: ml 1350-1620ml (1ml/kcal) Nutritional Problem 1. Problem Problem inadequete food intake Etiology possible mental status/poor appetite Signs/Symptoms: PO intake <25% Intervention/Recommendation Comments 1. Wait for swallow eval result. Advance diet per ST recommendation. Assist pt with meals. MD to consider appetite stimulant as needed. 2. Monitor PO intake, wt, labs and skin integrity 3. F/U as high risk in 2-3 days, 05/19-05/20 Expected Outcomes/Goals Expected Outcomes/Goals 1. PO intake to meet at least 75% of nutritional needs. 2. Wt stability, skin to remain intact, labs to approach WNL.
--- NOTE | 2018-05-27 09:52 | GI Progress Note ---
Subjective - Review of Systems Service Date: 05/27/18 Subjective: EVENTS NOTED. TRANSITIONING TO BOLUS FEEDS. Objective - Results Result Diagrams: 05/25/18 05:30 05/25/18 05:30 Recent Labs: Laboratory Last Values WBC 6.6 Th/cmm (4.8-10.8) 05/25/18 05:30 RBC 3.74 Mil/cmm (3.80-5.10) L 05/25/18 05:30 Hgb 13.1 gm/dL (12-16) 05/25/18 05:30 Hct 38.0 % (41.0-60) L 05/25/18 05:30 MCV 101.7 fl (81-100) H 05/25/18 05:30 MCH 35.0 pg (27.0-31.0) H 05/25/18 05:30 MCHC Differential 34.5 pg (28.0-36.0) 05/25/18 05:30 RDW 13.9 % (11.5-20.0) 05/25/18 05:30 Plt Count 246 Th/cmm (150-400) 05/25/18 05:30 MPV 7.5 fl 05/25/18 05:30 Add Manual Diff YES 05/15/18 06:10 Neutrophils % 61.5 % (40.0-80.0) 05/25/18 05:30 Band Neutrophils % 4 % (0-10) 05/15/18 06:10 Lymphocytes % 29.5 % (20.0-50.0) 05/25/18 05:30 Monocytes % 8.3 % (2.0-10.0) 05/25/18 05:30 Eosinophils % 0.5 % (0.0-5.0) 05/25/18 05:30 Basophils % 0.2 % (0.0-2.0) 05/25/18 05:30 Neutrophils (Manual) 52 % (40-80) 05/15/18 06:10 Lymphocytes 30 % (20-50) 05/15/18 06:10 Monocytes 14 % (2-10) H 05/15/18 06:10 Eosinophils 0 % (0-5) 05/15/18 06:10 Basophils 0 % (0-3) 05/15/18 06:10 Platelet Estimate ADEQUATE (NORMAL) 05/14/18 22:40 Platelet Morphology NORMAL (NORMAL) 05/14/18 22:40 RBC Morph Micro Appear NORMAL (NORMAL) 05/14/18 22:40 PT 11.1 SECONDS (9.5-11.5) 05/24/18 04:50 INR 1.07 (0.5-1.4) 05/24/18 04:50 PTT (Actin FS) 28.2 SECONDS (26.0-38.0) 05/24/18 04:50 Sodium 137 mEq/L (136-145) 05/25/18 05:30 Potassium 3.3 mEq/L (3.5-5.1) L 05/25/18 05:30 Chloride 104 mEq/L (98-107) 05/25/18 05:30 Carbon Dioxide 25.2 mEq/L (21.0-31.0) 05/25/18 05:30 Anion Gap 11.1 (7.0-16.0) 05/25/18 05:30 BUN 5 mg/dL (7-25) L 05/25/18 05:30 Creatinine 0.5 mg/dL (0.6-1.2) L 05/25/18 05:30 Est GFR ( Amer) > 60.0 ml/min (>90) 05/25/18 05:30 Est GFR (Non-Af Amer) > 60.0 ml/min 05/25/18 05:30 BUN/Creatinine Ratio 10.0 05/25/18 05:30 Glucose 110 mg/dL (70-105) H 05/25/18 05:30 Calcium 9.5 mg/dL (8.6-10.3) 05/25/18 05:30 Phosphorus 3.6 mg/dL (2.5-5.0) 05/14/18 22:40 Magnesium 1.8 mg/dL (1.9-2.7) L 05/14/18 22:40 Total Bilirubin 0.5 mg/dL (0.3-1.0) 05/21/18 04:50 AST 12 U/L (13-39) L 05/21/18 04:50 ALT 9 U/L (7-52) 05/21/18 04:50 Alkaline Phosphatase 52 U/L (34-104) 05/21/18 04:50 Total Protein 5.9 gm/dL (6.0-8.3) L 05/21/18 04:50 Albumin 3.3 gm/dL (3.7-5.3) L 05/21/18 04:50 Globulin 2.6 gm/dL 05/21/18 04:50 Albumin/Globulin Ratio 1.3 (1.0-1.8) 05/21/18 04:50 Triglycerides 75 mg/dL (<150) 05/15/18 06:10 Cholesterol 147 mg/dL (<200) 05/15/18 06:10 LDL Cholesterol Direct 67 mg/dL (75-193) L 05/15/18 06:10 HDL Cholesterol 63 mg/dL (23-92) 05/15/18 06:10 TSH 3.28 uIU/ml (0.34-5.60) 05/15/18 06:10 Urine Source CATH 05/14/18 23:00 Urine Color YELLOW 05/14/18 23:00 Urine Clarity CLEAR (CLEAR) 05/14/18 23:00 Urine pH 7.0 (4.6 - 8.0) 05/14/18 23:00 Ur Specific [place] 1.015 (1.005-1.030) 05/14/18 23:00 Urine Protein 30 mg/dL (NEGATIVE) H 05/14/18 23:00 Urine Glucose (UA) NEGATIVE mg/dL (NEGATIVE) 05/14/18 23:00 Urine Ketones 40 mg/dL (NEGATIVE) H 05/14/18 23:00 Urine Blood LARGE (NEGATIVE) H 05/14/18 23:00 Urine Nitrate NEGATIVE (NEGATIVE) 05/14/18 23:00 Urine Bilirubin NEGATIVE (NEGATIVE) 05/14/18 23:00 Urine Urobilinogen 1.0 E.U./dL (0.2 - 1.0) 05/14/18 23:00 Ur Leukocyte Esterase NEGATIVE (NEGATIVE) 05/14/18 23:00 Urine RBC 10-25 /hpf (0-5) H 05/14/18 23:00 Urine WBC 2-5 /hpf (0-5) 05/14/18 23:00 Ur Epithelial Cells RARE /lpf (FEW) 05/14/18 23:00 Urine Bacteria NONE SEEN /hpf (NONE SEEN) 05/14/18 23:00 Urine Mucus FEW /lpf (FEW) 05/14/18 23:00 Urine Test NEGATIVE 05/24/18 10:05 Urine Opiates Screen NEGATIVE (NEGATIVE) 05/14/18 23:00 Urine Methadone Screen NEGATIVE (NEGATIVE) 05/14/18 23:00 Ur Barbiturates Screen NEGATIVE (NEGATIVE) 05/14/18 23:00 Valproic Acid < 10.0 ug/mL (50.0-100.0) L 05/21/18 04:50 Ur Tricyclics Screen POSITIVE (NEGATIVE) H 05/14/18 23:00 Ur Phencyclidine Scrn NEGATIVE (NEGATIVE) 05/14/18 23:00 Amphetamines Screen NEGATIVE (NEGATIVE) 05/14/18 23:00 U Methamphetamines Scrn NEGATIVE (NEGATIVE) 05/14/18 23:00 U Benzodiazepines Scrn NEGATIVE (NEGATIVE) 05/14/18 23:00 U Cocaine Metab Screen NEGATIVE (NEGATIVE) 05/14/18 23:00 U Cannabinoids Screen NEGATIVE (NEGATIVE) 05/14/18 23:00 Helicobacter pylori Ab NEGATIVE (NEGATIVE) 05/24/18 11:45 Blood Type O POSITIVE 05/24/18 07:50 - Physical Exam Vitals and I&O: Vital Signs Temp 97.3 F 05/27/18 08:20 Pulse 68 05/27/18 08:20 Resp 18 05/27/18 08:20 BP 125/80 05/27/18 08:20 Pulse Ox 98 05/27/18 08:20 Intake & Output 05/26/18 05/27/18 05/27/18 18:59 06:59 18:59 Intake Total 920 480 Balance 920 480 Weight (lbs) 68.492 kg 68.039 kg Intake: Oral 0 Tube Feeding 440 480 TPN/PPN 480 Other: # Voids 3 3 # Bowel Movements 0 0 Stool Characteristics Soft Soft Weight Source Bedscale Bedscale Active Medications: Current Medications Acetaminophen (Tylenol 650mg/20.3ml Suspension) 650 mg GT Q6H PRN PRN Reason: pain Stop: 07/23/18 13:39 Divalproex Sodium (Depakote Dr) 250 mg PO Q12HR JOHN; Protocol Stop: 07/23/18 20:59 Last Admin: 05/26/18 20:49 Dose: 250 mg Haloperidol (Haldol) 2 mg PO BID PRN; Protocol PRN Reason: Agitation Stop: 07/15/18 16:59 Haloperidol (Haldol) 2 mg PO BID JOHN Stop: 07/16/18 08:59 Last Admin: 05/26/18 16:29 Dose: 2 mg Dextrose/Sodium Chloride (D5-0.9%Ns) 1,000 mls @ 50 mls/hr IV .Q20H JOHN Stop: 07/20/18 12:05 Last Admin: 05/25/18 21:59 Dose: 50 mls/hr Lactulose (Cephulac) 20 gm PO DAILY JOHN Stop: 07/14/18 08:59 Last Admin: 05/26/18 09:45 Dose: 20 gm Levothyroxine Sodium (Synthroid) 0.025 mg PO QDAC JOHN Stop: 07/14/18 08:59 Last Admin: 05/26/18 09:50 Dose: 0.025 mg Lorazepam (Ativan) 1 mg IVP Q4HR PRN; Protocol PRN Reason: Seizures Stop: 07/19/18 19:04 Last Admin: 05/24/18 15:31 Dose: 1 mg Morphine Sulfate (Morphine) 1 mg IVP Q4HR PRN PRN Reason: mild to moderate pain Stop: 07/23/18 15:26 Last Admin: 05/24/18 16:29 Dose: 1 mg Morphine Sulfate (Morphine) 2 mg IVP Q4HR PRN PRN Reason: Severe Pain Stop: 07/23/18 15:28 Ondansetron HCl (Zofran) 4 mg IV Q6H PRN PRN Reason: Nausea / Vomiting Stop: 07/14/18 09:50 Last Admin: 05/20/18 13:46 Dose: 4 mg Pantoprazole Sodium (Protonix) 40 mg IVP DAILY JOHN Stop: 07/20/18 11:59 Last Admin: 05/26/18 09:46 Dose: 40 mg Cabergoline 0.25mg (Tab) 1 PO QTHUR JOHN Stop: 07/26/18 08:59 Cabergoline 0.5mg (Tab) 1 PO QMON JOHN Stop: 07/20/18 15:29 Last Admin: 05/24/18 09:43 Dose: Not Given Polyethylene Glycol (Miralax) 17 gm PO DAILY JOHN Stop: 07/16/18 13:14 Last Admin: 05/26/18 09:45 Dose: 17 gm Quetiapine Fumarate (Seroquel) 150 mg PO HS JOHN; Protocol Stop: 07/14/18 20:59 Last Admin: 05/26/18 20:48 Dose: 150 mg Vitamin D (Vitamin D3) 2,000 iu PO DAILY JOHN Stop: 07/14/18 08:59 Last Admin: 05/26/18 09:48 Dose: 2,000 iu General: No acute distress HEENT: Atraumatic Neck: Supple Cardiovascular: Regular rate Lungs: Clear to auscultation, Normal air movement Abdomen: Bowel sounds, Soft, Other (INTACT GT, BINDER), no Tender, no Distended - Procedures Procedures: Procedures Procedure Code Date EXCISION OF STOMACH, ENDO, DIAGN [id number] 05/15/18 INSERTION OF FEEDING DEVICE INTO STOMACH, OPEN APPROACH [id number] 05/15/18 Assessment/Plan - Assessment Assessment: IMPRESSION: 1. Refusal to eat with N/V s/p PEG insertion 05/24. EGD also showed mild esophagitis, mild H pylori negative gastritis, hyperplastic gastric polyp removed. 2. MR. 3. constipation 4. Sz. RECS: -Bolus GT feeds as tolerated. -Protonix. -Reglan. GI RIVERA STABLE.
[2018-05-27] MEDS: Levothyroxine 0.025 Mg Tab PO SCH (09:55)
[2018-05-27] MEDS: Vitamin D3 2,000 IU SGL PO SCH (09:55)
[2018-05-27] MEDS: POLYETHYLENE GLYCOL 3350 17 GM PACK PO SCH (09:56)
[2018-05-27] MEDS: Lactulose 10 Gm/15 mL 30mL UDC PO SCH (09:56)
--- NOTE | 2018-05-27 11:35 | General Progress Note ---
Subjective - Review of Systems Events since last encounter: In no distress Subjective: patient awake admitted with failure to thrive is mentally challenge Objective - Results Result Diagrams: 05/25/18 05:30 05/25/18 05:30 Recent Labs: Laboratory Last Values WBC 6.6 Th/cmm (4.8-10.8) 05/25/18 05:30 RBC 3.74 Mil/cmm (3.80-5.10) L 05/25/18 05:30 Hgb 13.1 gm/dL (12-16) 05/25/18 05:30 Hct 38.0 % (41.0-60) L 05/25/18 05:30 MCV 101.7 fl (81-100) H 05/25/18 05:30 MCH 35.0 pg (27.0-31.0) H 05/25/18 05:30 MCHC Differential 34.5 pg (28.0-36.0) 05/25/18 05:30 RDW 13.9 % (11.5-20.0) 05/25/18 05:30 Plt Count 246 Th/cmm (150-400) 05/25/18 05:30 MPV 7.5 fl 05/25/18 05:30 Add Manual Diff YES 05/15/18 06:10 Neutrophils % 61.5 % (40.0-80.0) 05/25/18 05:30 Band Neutrophils % 4 % (0-10) 05/15/18 06:10 Lymphocytes % 29.5 % (20.0-50.0) 05/25/18 05:30 Monocytes % 8.3 % (2.0-10.0) 05/25/18 05:30 Eosinophils % 0.5 % (0.0-5.0) 05/25/18 05:30 Basophils % 0.2 % (0.0-2.0) 05/25/18 05:30 Neutrophils (Manual) 52 % (40-80) 05/15/18 06:10 Lymphocytes 30 % (20-50) 05/15/18 06:10 Monocytes 14 % (2-10) H 05/15/18 06:10 Eosinophils 0 % (0-5) 05/15/18 06:10 Basophils 0 % (0-3) 05/15/18 06:10 Platelet Estimate ADEQUATE (NORMAL) 05/14/18 22:40 Platelet Morphology NORMAL (NORMAL) 05/14/18 22:40 RBC Morph Micro Appear NORMAL (NORMAL) 05/14/18 22:40 PT 11.1 SECONDS (9.5-11.5) 05/24/18 04:50 INR 1.07 (0.5-1.4) 05/24/18 04:50 PTT (Actin FS) 28.2 SECONDS (26.0-38.0) 05/24/18 04:50 Sodium 137 mEq/L (136-145) 05/25/18 05:30 Potassium 3.3 mEq/L (3.5-5.1) L 05/25/18 05:30 Chloride 104 mEq/L (98-107) 05/25/18 05:30 Carbon Dioxide 25.2 mEq/L (21.0-31.0) 05/25/18 05:30 Anion Gap 11.1 (7.0-16.0) 05/25/18 05:30 BUN 5 mg/dL (7-25) L 05/25/18 05:30 Creatinine 0.5 mg/dL (0.6-1.2) L 05/25/18 05:30 Est GFR ( Amer) > 60.0 ml/min (>90) 05/25/18 05:30 Est GFR (Non-Af Amer) > 60.0 ml/min 05/25/18 05:30 BUN/Creatinine Ratio 10.0 05/25/18 05:30 Glucose 110 mg/dL (70-105) H 05/25/18 05:30 Calcium 9.5 mg/dL (8.6-10.3) 05/25/18 05:30 Phosphorus 3.6 mg/dL (2.5-5.0) 05/14/18 22:40 Magnesium 1.8 mg/dL (1.9-2.7) L 05/14/18 22:40 Total Bilirubin 0.5 mg/dL (0.3-1.0) 05/21/18 04:50 AST 12 U/L (13-39) L 05/21/18 04:50 ALT 9 U/L (7-52) 05/21/18 04:50 Alkaline Phosphatase 52 U/L (34-104) 05/21/18 04:50 Total Protein 5.9 gm/dL (6.0-8.3) L 05/21/18 04:50 Albumin 3.3 gm/dL (3.7-5.3) L 05/21/18 04:50 Globulin 2.6 gm/dL 05/21/18 04:50 Albumin/Globulin Ratio 1.3 (1.0-1.8) 05/21/18 04:50 Triglycerides 75 mg/dL (<150) 05/15/18 06:10 Cholesterol 147 mg/dL (<200) 05/15/18 06:10 LDL Cholesterol Direct 67 mg/dL (75-193) L 05/15/18 06:10 HDL Cholesterol 63 mg/dL (23-92) 05/15/18 06:10 TSH 3.28 uIU/ml (0.34-5.60) 05/15/18 06:10 Urine Source CATH 05/14/18 23:00 Urine Color YELLOW 05/14/18 23:00 Urine Clarity CLEAR (CLEAR) 05/14/18 23:00 Urine pH 7.0 (4.6 - 8.0) 05/14/18 23:00 Ur Specific [place] 1.015 (1.005-1.030) 05/14/18 23:00 Urine Protein 30 mg/dL (NEGATIVE) H 05/14/18 23:00 Urine Glucose (UA) NEGATIVE mg/dL (NEGATIVE) 05/14/18 23:00 Urine Ketones 40 mg/dL (NEGATIVE) H 05/14/18 23:00 Urine Blood LARGE (NEGATIVE) H 05/14/18 23:00 Urine Nitrate NEGATIVE (NEGATIVE) 05/14/18 23:00 Urine Bilirubin NEGATIVE (NEGATIVE) 05/14/18 23:00 Urine Urobilinogen 1.0 E.U./dL (0.2 - 1.0) 05/14/18 23:00 Ur Leukocyte Esterase NEGATIVE (NEGATIVE) 05/14/18 23:00 Urine RBC 10-25 /hpf (0-5) H 05/14/18 23:00 Urine WBC 2-5 /hpf (0-5) 05/14/18 23:00 Ur Epithelial Cells RARE /lpf (FEW) 05/14/18 23:00 Urine Bacteria NONE SEEN /hpf (NONE SEEN) 05/14/18 23:00 Urine Mucus FEW /lpf (FEW) 05/14/18 23:00 Urine Test NEGATIVE 05/24/18 10:05 Urine Opiates Screen NEGATIVE (NEGATIVE) 05/14/18 23:00 Urine Methadone Screen NEGATIVE (NEGATIVE) 05/14/18 23:00 Ur Barbiturates Screen NEGATIVE (NEGATIVE) 05/14/18 23:00 Valproic Acid < 10.0 ug/mL (50.0-100.0) L 05/21/18 04:50 Ur Tricyclics Screen POSITIVE (NEGATIVE) H 05/14/18 23:00 Ur Phencyclidine Scrn NEGATIVE (NEGATIVE) 05/14/18 23:00 Amphetamines Screen NEGATIVE (NEGATIVE) 05/14/18 23:00 U Methamphetamines Scrn NEGATIVE (NEGATIVE) 05/14/18 23:00 U Benzodiazepines Scrn NEGATIVE (NEGATIVE) 05/14/18 23:00 U Cocaine Metab Screen NEGATIVE (NEGATIVE) 05/14/18 23:00 U Cannabinoids Screen NEGATIVE (NEGATIVE) 05/14/18 23:00 Helicobacter pylori Ab NEGATIVE (NEGATIVE) 05/24/18 11:45 Blood Type O POSITIVE 05/24/18 07:50 - Physical Exam Vitals and I&O: Vital Signs Temp 97.3 F 05/27/18 08:20 Pulse 68 05/27/18 08:20 Resp 18 05/27/18 08:20 BP 125/80 05/27/18 08:20 Pulse Ox 98 05/27/18 08:20 Intake & Output 05/26/18 05/27/18 05/27/18 18:59 06:59 18:59 Intake Total 920 480 Balance 920 480 Weight (lbs) 68.492 kg 68.039 kg Intake: Oral 0 Tube Feeding 440 480 TPN/PPN 480 Other: # Voids 3 3 # Bowel Movements 0 0 Stool Characteristics Soft Soft Weight Source Bedscale Bedscale Active Medications: Current Medications Acetaminophen (Tylenol 650mg/20.3ml Suspension) 650 mg GT Q6H PRN PRN Reason: pain Stop: 07/23/18 13:39 Divalproex Sodium (Depakote Dr) 250 mg PO Q12HR JOHN; Protocol Stop: 07/23/18 20:59 Last Admin: 05/27/18 09:55 Dose: 250 mg Haloperidol (Haldol) 2 mg PO BID PRN; Protocol PRN Reason: Agitation Stop: 07/15/18 16:59 Haloperidol (Haldol) 2 mg PO BID JOHN Stop: 07/16/18 08:59 Last Admin: 05/27/18 09:55 Dose: 2 mg Dextrose/Sodium Chloride (D5-0.9%Ns) 1,000 mls @ 50 mls/hr IV .Q20H JOHN Stop: 07/20/18 12:05 Last Admin: 05/25/18 21:59 Dose: 50 mls/hr Lactulose (Cephulac) 20 gm PO DAILY JOHN Stop: 07/14/18 08:59 Last Admin: 05/27/18 09:56 Dose: 20 gm Levothyroxine Sodium (Synthroid) 0.025 mg PO QDAC JOHN Stop: 07/14/18 08:59 Last Admin: 05/27/18 09:55 Dose: 0.025 mg Lorazepam (Ativan) 1 mg IVP Q4HR PRN; Protocol PRN Reason: Seizures Stop: 07/19/18 19:04 Last Admin: 05/24/18 15:31 Dose: 1 mg Morphine Sulfate (Morphine) 1 mg IVP Q4HR PRN PRN Reason: mild to moderate pain Stop: 07/23/18 15:26 Last Admin: 05/24/18 16:29 Dose: 1 mg Morphine Sulfate (Morphine) 2 mg IVP Q4HR PRN PRN Reason: Severe Pain Stop: 07/23/18 15:28 Ondansetron HCl (Zofran) 4 mg IV Q6H PRN PRN Reason: Nausea / Vomiting Stop: 07/14/18 09:50 Last Admin: 05/20/18 13:46 Dose: 4 mg Pantoprazole Sodium (Protonix) 40 mg IVP DAILY JOHN Stop: 07/20/18 11:59 Last Admin: 05/27/18 09:56 Dose: 40 mg Cabergoline 0.25mg (Tab) 1 PO QTHUR JOHN Stop: 07/26/18 08:59 Cabergoline 0.5mg (Tab) 1 PO QMON JOHN Stop: 07/20/18 15:29 Last Admin: 05/24/18 09:43 Dose: Not Given Polyethylene Glycol (Miralax) 17 gm PO DAILY JOHN Stop: 07/16/18 13:14 Last Admin: 05/27/18 09:56 Dose: 17 gm Quetiapine Fumarate (Seroquel) 150 mg PO HS JOHN; Protocol Stop: 07/14/18 20:59 Last Admin: 05/26/18 20:48 Dose: 150 mg Vitamin D (Vitamin D3) 2,000 iu PO DAILY JOHN Stop: 07/14/18 08:59 Last Admin: 05/27/18 09:55 Dose: 2,000 iu General: No acute distress HEENT: Atraumatic Neck: Supple Cardiovascular: Regular rate Lungs: Clear to auscultation, Normal air movement Abdomen: Bowel sounds, Soft, Other (INTACT GT, BINDER), no Tender, no Distended - Procedures Procedures: Procedures Procedure Code Date EXCISION OF STOMACH, ENDO, DIAGN [id number] 05/15/18 INSERTION OF FEEDING DEVICE INTO STOMACH, OPEN APPROACH [id number] 05/15/18 Assessment/Plan - Plan Plan: cpm Nutritional Asmnt/Malnutr-PDOC - Dietary Evaluation Malnutrition Findings (Please click <Entered> for more info): Nutritional Asmnt/Malnutrition Start: 05/17/18 11: 40 Text: Status: Complete Freq: Protocol: Document 05/17/18 11:40 LCHENG (Rec: 05/17/18 11:51 [email or web address]) Nutritional Asmnt/Malnutrition Patient General Information Nutritional Screening High Risk Diagnosis FTT Pertinent Medical Hx/Surgical Hx mental retardation, hypothyroidism. Subjective Information Pt was not able to communicate d/t mental status. Per nurse, pt has been refusing to eat. Per EMR, PO intake 0% of most meals. Swallow eval scheduled for today. Current Diet Order/ Nutrition Support full liquid. Pertinent Medications D5-0.45ns, synthroid, seroquel , vit D3 Pertinent Labs 05/15 Glucose 120, alb 3.0 Nutritional Hx/Data Height 1.55 m Height (Calculated Centimeters) 154.9 Current Weight (lbs) 53.524 kg Weight (Calculated Kilograms) 53.5 Weight (Calculated Grams) 98909.9 Body Mass Index (BMI) 22.3 Weight Status Approriate GI Symptoms GI Symptoms None Last BM not indicated Skin Integrity/Comment: abrasion to left lower knee and right lower leg Current %PO Negligible < 25% Estimated Nutritional Goals BEE in Kcals: Using Current wt Calories/Kcals/Kg 25-30 Kcals Calculated 0686-3582 Protein: Using Current wt Protein g/k-1.2 Protein Calculated 54-65 Fluid: ml 1350-1620ml (1ml/kcal) Nutritional Problem 1. Problem Problem inadequete food intake Etiology possible mental status/poor appetite Signs/Symptoms: PO intake <25% Intervention/Recommendation Comments 1. Wait for swallow eval result. Advance diet per ST recommendation. Assist pt with meals. MD to consider appetite stimulant as needed. 2. Monitor PO intake, wt, labs and skin integrity 3. F/U as high risk in 2-3 days, 05/19-05/20 Expected Outcomes/Goals Expected Outcomes/Goals 1. PO intake to meet at least 75% of nutritional needs. 2. Wt stability, skin to remain intact, labs to approach WNL.
[2018-05-27] MEDS: CABERGOLINE 0.25 MG PO SCH (17:47)
[2018-05-28] MEDS: D5-0.9%NS 1,000 ML IV SCH ×3 (03:15→16:57)
[2018-05-28] MEDS: Levothyroxine 0.025 Mg Tab PO SCH (06:37)
[2018-05-28] MEDS: Vitamin D3 2,000 IU SGL PO SCH (09:05)
[2018-05-28] MEDS: POLYETHYLENE GLYCOL 3350 17 GM PACK PO SCH (09:06)
[2018-05-28] MEDS: Lactulose 10 Gm/15 mL 30mL UDC PO SCH (09:06)
--- NOTE | 2018-05-28 13:47 | GI Progress Note ---
Subjective - Review of Systems Service Date: 05/28/18 Subjective: EVENTS NOTED. TOLERATING BOLUS GT FEEDS. Objective - Results Result Diagrams: 05/25/18 05:30 05/25/18 05:30 Recent Labs: Laboratory Last Values WBC 6.6 Th/cmm (4.8-10.8) 05/25/18 05:30 RBC 3.74 Mil/cmm (3.80-5.10) L 05/25/18 05:30 Hgb 13.1 gm/dL (12-16) 05/25/18 05:30 Hct 38.0 % (41.0-60) L 05/25/18 05:30 MCV 101.7 fl (81-100) H 05/25/18 05:30 MCH 35.0 pg (27.0-31.0) H 05/25/18 05:30 MCHC Differential 34.5 pg (28.0-36.0) 05/25/18 05:30 RDW 13.9 % (11.5-20.0) 05/25/18 05:30 Plt Count 246 Th/cmm (150-400) 05/25/18 05:30 MPV 7.5 fl 05/25/18 05:30 Add Manual Diff YES 05/15/18 06:10 Neutrophils % 61.5 % (40.0-80.0) 05/25/18 05:30 Band Neutrophils % 4 % (0-10) 05/15/18 06:10 Lymphocytes % 29.5 % (20.0-50.0) 05/25/18 05:30 Monocytes % 8.3 % (2.0-10.0) 05/25/18 05:30 Eosinophils % 0.5 % (0.0-5.0) 05/25/18 05:30 Basophils % 0.2 % (0.0-2.0) 05/25/18 05:30 Neutrophils (Manual) 52 % (40-80) 05/15/18 06:10 Lymphocytes 30 % (20-50) 05/15/18 06:10 Monocytes 14 % (2-10) H 05/15/18 06:10 Eosinophils 0 % (0-5) 05/15/18 06:10 Basophils 0 % (0-3) 05/15/18 06:10 Platelet Estimate ADEQUATE (NORMAL) 05/14/18 22:40 Platelet Morphology NORMAL (NORMAL) 05/14/18 22:40 RBC Morph Micro Appear NORMAL (NORMAL) 05/14/18 22:40 PT 11.1 SECONDS (9.5-11.5) 05/24/18 04:50 INR 1.07 (0.5-1.4) 05/24/18 04:50 PTT (Actin FS) 28.2 SECONDS (26.0-38.0) 05/24/18 04:50 Sodium 137 mEq/L (136-145) 05/25/18 05:30 Potassium 3.3 mEq/L (3.5-5.1) L 05/25/18 05:30 Chloride 104 mEq/L (98-107) 05/25/18 05:30 Carbon Dioxide 25.2 mEq/L (21.0-31.0) 05/25/18 05:30 Anion Gap 11.1 (7.0-16.0) 05/25/18 05:30 BUN 5 mg/dL (7-25) L 05/25/18 05:30 Creatinine 0.5 mg/dL (0.6-1.2) L 05/25/18 05:30 Est GFR ( Amer) > 60.0 ml/min (>90) 05/25/18 05:30 Est GFR (Non-Af Amer) > 60.0 ml/min 05/25/18 05:30 BUN/Creatinine Ratio 10.0 05/25/18 05:30 Glucose 110 mg/dL (70-105) H 05/25/18 05:30 Calcium 9.5 mg/dL (8.6-10.3) 05/25/18 05:30 Phosphorus 3.6 mg/dL (2.5-5.0) 05/14/18 22:40 Magnesium 1.8 mg/dL (1.9-2.7) L 05/14/18 22:40 Total Bilirubin 0.5 mg/dL (0.3-1.0) 05/21/18 04:50 AST 12 U/L (13-39) L 05/21/18 04:50 ALT 9 U/L (7-52) 05/21/18 04:50 Alkaline Phosphatase 52 U/L (34-104) 05/21/18 04:50 Total Protein 5.9 gm/dL (6.0-8.3) L 05/21/18 04:50 Albumin 3.3 gm/dL (3.7-5.3) L 05/21/18 04:50 Globulin 2.6 gm/dL 05/21/18 04:50 Albumin/Globulin Ratio 1.3 (1.0-1.8) 05/21/18 04:50 Triglycerides 75 mg/dL (<150) 05/15/18 06:10 Cholesterol 147 mg/dL (<200) 05/15/18 06:10 LDL Cholesterol Direct 67 mg/dL (75-193) L 05/15/18 06:10 HDL Cholesterol 63 mg/dL (23-92) 05/15/18 06:10 TSH 3.28 uIU/ml (0.34-5.60) 05/15/18 06:10 Urine Source CATH 05/14/18 23:00 Urine Color YELLOW 05/14/18 23:00 Urine Clarity CLEAR (CLEAR) 05/14/18 23:00 Urine pH 7.0 (4.6 - 8.0) 05/14/18 23:00 Ur Specific [place] 1.015 (1.005-1.030) 05/14/18 23:00 Urine Protein 30 mg/dL (NEGATIVE) H 05/14/18 23:00 Urine Glucose (UA) NEGATIVE mg/dL (NEGATIVE) 05/14/18 23:00 Urine Ketones 40 mg/dL (NEGATIVE) H 05/14/18 23:00 Urine Blood LARGE (NEGATIVE) H 05/14/18 23:00 Urine Nitrate NEGATIVE (NEGATIVE) 05/14/18 23:00 Urine Bilirubin NEGATIVE (NEGATIVE) 05/14/18 23:00 Urine Urobilinogen 1.0 E.U./dL (0.2 - 1.0) 05/14/18 23:00 Ur Leukocyte Esterase NEGATIVE (NEGATIVE) 05/14/18 23:00 Urine RBC 10-25 /hpf (0-5) H 05/14/18 23:00 Urine WBC 2-5 /hpf (0-5) 05/14/18 23:00 Ur Epithelial Cells RARE /lpf (FEW) 05/14/18 23:00 Urine Bacteria NONE SEEN /hpf (NONE SEEN) 05/14/18 23:00 Urine Mucus FEW /lpf (FEW) 05/14/18 23:00 Urine Test NEGATIVE 05/24/18 10:05 Urine Opiates Screen NEGATIVE (NEGATIVE) 05/14/18 23:00 Urine Methadone Screen NEGATIVE (NEGATIVE) 05/14/18 23:00 Ur Barbiturates Screen NEGATIVE (NEGATIVE) 05/14/18 23:00 Valproic Acid < 10.0 ug/mL (50.0-100.0) L 05/21/18 04:50 Ur Tricyclics Screen POSITIVE (NEGATIVE) H 05/14/18 23:00 Ur Phencyclidine Scrn NEGATIVE (NEGATIVE) 05/14/18 23:00 Amphetamines Screen NEGATIVE (NEGATIVE) 05/14/18 23:00 U Methamphetamines Scrn NEGATIVE (NEGATIVE) 05/14/18 23:00 U Benzodiazepines Scrn NEGATIVE (NEGATIVE) 05/14/18 23:00 U Cocaine Metab Screen NEGATIVE (NEGATIVE) 05/14/18 23:00 U Cannabinoids Screen NEGATIVE (NEGATIVE) 05/14/18 23:00 Helicobacter pylori Ab NEGATIVE (NEGATIVE) 05/24/18 11:45 Blood Type O POSITIVE 05/24/18 07:50 Antibody Screen NEGATIVE 05/24/18 07:50 - Physical Exam Vitals and I&O: Vital Signs Temp 97.6 F 05/28/18 11:41 Pulse 105 05/28/18 11:41 Resp 17 05/28/18 11:41 BP 103/70 05/28/18 11:41 Pulse Ox 98 05/28/18 11:41 Intake & Output 05/27/18 05/28/18 05/28/18 18:59 06:59 18:59 Intake Total 1185 0 Balance 1185 0 Weight (lbs) 68.22 kg 66.996 kg Intake: Oral 0 Tube Feeding 1185 0 Other: # Voids 3 3 Weight Source Bedscale Bedscale Active Medications: Current Medications Acetaminophen (Tylenol 650mg/20.3ml Suspension) 650 mg GT Q6H PRN PRN Reason: pain Stop: 07/23/18 13:39 Divalproex Sodium (Depakote Dr) 250 mg PO Q12HR JOHN; Protocol Stop: 07/23/18 20:59 Last Admin: 05/28/18 09:06 Dose: 250 mg Haloperidol (Haldol) 2 mg PO BID PRN; Protocol PRN Reason: Agitation Stop: 07/15/18 16:59 Haloperidol (Haldol) 2 mg PO BID JOHN Stop: 07/16/18 08:59 Last Admin: 05/28/18 09:05 Dose: 2 mg Dextrose/Sodium Chloride (D5-0.9%Ns) 1,000 mls @ 50 mls/hr IV .Q20H JOHN Stop: 07/20/18 12:05 Last Admin: 05/28/18 07:49 Dose: Not Given Lactulose (Cephulac) 20 gm PO DAILY JOHN Stop: 07/14/18 08:59 Last Admin: 05/28/18 09:06 Dose: 20 gm Levothyroxine Sodium (Synthroid) 0.025 mg PO QDAC JOHN Stop: 07/14/18 08:59 Last Admin: 05/28/18 06:37 Dose: 0.025 mg Lorazepam (Ativan) 1 mg IVP Q4HR PRN; Protocol PRN Reason: Seizures Stop: 07/19/18 19:04 Last Admin: 05/24/18 15:31 Dose: 1 mg Morphine Sulfate (Morphine) 1 mg IVP Q4HR PRN PRN Reason: mild to moderate pain Stop: 07/23/18 15:26 Last Admin: 05/24/18 16:29 Dose: 1 mg Morphine Sulfate (Morphine) 2 mg IVP Q4HR PRN PRN Reason: Severe Pain Stop: 07/23/18 15:28 Ondansetron HCl (Zofran) 4 mg IV Q6H PRN PRN Reason: Nausea / Vomiting Stop: 07/14/18 09:50 Last Admin: 05/20/18 13:46 Dose: 4 mg Pantoprazole Sodium (Protonix) 40 mg IVP DAILY JOHN Stop: 07/20/18 11:59 Last Admin: 05/28/18 09:13 Dose: 40 mg Cabergoline 0.25mg (Tab) 1 PO QTHUR JOHN Stop: 07/26/18 08:59 Last Admin: 05/27/18 17:47 Dose: Not Given Cabergoline 0.5mg (Tab) 1 PO QMON JOHN Stop: 07/20/18 15:29 Last Admin: 05/24/18 09:43 Dose: Not Given Polyethylene Glycol (Miralax) 17 gm PO DAILY JOHN Stop: 07/16/18 13:14 Last Admin: 05/28/18 09:06 Dose: 17 gm Quetiapine Fumarate (Seroquel) 150 mg PO HS JOHN; Protocol Stop: 07/14/18 20:59 Last Admin: 05/27/18 21:35 Dose: 150 mg Vitamin D (Vitamin D3) 2,000 iu PO DAILY JOHN Stop: 07/14/18 08:59 Last Admin: 05/28/18 09:05 Dose: 2,000 iu General: No acute distress HEENT: Atraumatic Neck: Supple Cardiovascular: Regular rate Lungs: Clear to auscultation, Normal air movement Abdomen: Bowel sounds, Soft, Other (INTACT GT, BINDER), no Tender, no Distended - Procedures Procedures: Procedures Procedure Code Date EXCISION OF STOMACH, ENDO, DIAGN [id number] 05/15/18 INSERTION OF FEEDING DEVICE INTO STOMACH, OPEN APPROACH [id number] 05/15/18 Assessment/Plan - Assessment Assessment: IMPRESSION: 1. Refusal to eat with N/V s/p PEG insertion 05/24. EGD also showed mild esophagitis, mild H pylori negative gastritis, hyperplastic gastric polyp removed. 2. MR. 3. constipation 4. Sz. RECS: -Bolus GT feeds as tolerated. -Protonix. -MIRALAX. GI RIVERA STABLE. WILL SEE INTERMITTENTLY.
[2018-05-29] MEDS: D5-0.9%NS 1,000 ML IV SCH (00:09)
[2018-05-29] MEDS: Levothyroxine 0.025 Mg Tab PO SCH (06:30)
[2018-05-29] MEDS: POLYETHYLENE GLYCOL 3350 17 GM PACK PO SCH (09:33)
[2018-05-29] MEDS: Vitamin D3 2,000 IU SGL PO SCH (09:34)
[2018-05-29] MEDS: Lactulose 10 Gm/15 mL 30mL UDC PO SCH (09:34)
--- NOTE | 2018-05-29 09:56 | Internal Medicine Prog Note ---
Internal Medicine Subjective - Subjective Service Date: 05/29/18 Patient seen and examined:: with staff Patient is:: awake Per staff patient has:: tolerating meds Internal Medicine Objective - Results Result Diagrams: 05/25/18 05:30 05/25/18 05:30 Recent Labs: Laboratory Last Values WBC 6.6 Th/cmm (4.8-10.8) 05/25/18 05:30 RBC 3.74 Mil/cmm (3.80-5.10) L 05/25/18 05:30 Hgb 13.1 gm/dL (12-16) 05/25/18 05:30 Hct 38.0 % (41.0-60) L 05/25/18 05:30 MCV 101.7 fl (81-100) H 05/25/18 05:30 MCH 35.0 pg (27.0-31.0) H 05/25/18 05:30 MCHC Differential 34.5 pg (28.0-36.0) 05/25/18 05:30 RDW 13.9 % (11.5-20.0) 05/25/18 05:30 Plt Count 246 Th/cmm (150-400) 05/25/18 05:30 MPV 7.5 fl 05/25/18 05:30 Add Manual Diff YES 05/15/18 06:10 Neutrophils % 61.5 % (40.0-80.0) 05/25/18 05:30 Band Neutrophils % 4 % (0-10) 05/15/18 06:10 Lymphocytes % 29.5 % (20.0-50.0) 05/25/18 05:30 Monocytes % 8.3 % (2.0-10.0) 05/25/18 05:30 Eosinophils % 0.5 % (0.0-5.0) 05/25/18 05:30 Basophils % 0.2 % (0.0-2.0) 05/25/18 05:30 Neutrophils (Manual) 52 % (40-80) 05/15/18 06:10 Lymphocytes 30 % (20-50) 05/15/18 06:10 Monocytes 14 % (2-10) H 05/15/18 06:10 Eosinophils 0 % (0-5) 05/15/18 06:10 Basophils 0 % (0-3) 05/15/18 06:10 Platelet Estimate ADEQUATE (NORMAL) 05/14/18 22:40 Platelet Morphology NORMAL (NORMAL) 05/14/18 22:40 RBC Morph Micro Appear NORMAL (NORMAL) 05/14/18 22:40 PT 11.1 SECONDS (9.5-11.5) 05/24/18 04:50 INR 1.07 (0.5-1.4) 05/24/18 04:50 PTT (Actin FS) 28.2 SECONDS (26.0-38.0) 05/24/18 04:50 Sodium 137 mEq/L (136-145) 05/25/18 05:30 Potassium 3.3 mEq/L (3.5-5.1) L 05/25/18 05:30 Chloride 104 mEq/L (98-107) 05/25/18 05:30 Carbon Dioxide 25.2 mEq/L (21.0-31.0) 05/25/18 05:30 Anion Gap 11.1 (7.0-16.0) 05/25/18 05:30 BUN 5 mg/dL (7-25) L 05/25/18 05:30 Creatinine 0.5 mg/dL (0.6-1.2) L 05/25/18 05:30 Est GFR ( Amer) > 60.0 ml/min (>90) 05/25/18 05:30 Est GFR (Non-Af Amer) > 60.0 ml/min 05/25/18 05:30 BUN/Creatinine Ratio 10.0 05/25/18 05:30 Glucose 110 mg/dL (70-105) H 05/25/18 05:30 Calcium 9.5 mg/dL (8.6-10.3) 05/25/18 05:30 Phosphorus 3.6 mg/dL (2.5-5.0) 05/14/18 22:40 Magnesium 1.8 mg/dL (1.9-2.7) L 05/14/18 22:40 Total Bilirubin 0.5 mg/dL (0.3-1.0) 05/21/18 04:50 AST 12 U/L (13-39) L 05/21/18 04:50 ALT 9 U/L (7-52) 05/21/18 04:50 Alkaline Phosphatase 52 U/L (34-104) 05/21/18 04:50 Total Protein 5.9 gm/dL (6.0-8.3) L 05/21/18 04:50 Albumin 3.3 gm/dL (3.7-5.3) L 05/21/18 04:50 Globulin 2.6 gm/dL 05/21/18 04:50 Albumin/Globulin Ratio 1.3 (1.0-1.8) 05/21/18 04:50 Triglycerides 75 mg/dL (<150) 05/15/18 06:10 Cholesterol 147 mg/dL (<200) 05/15/18 06:10 LDL Cholesterol Direct 67 mg/dL (75-193) L 05/15/18 06:10 HDL Cholesterol 63 mg/dL (23-92) 05/15/18 06:10 TSH 3.28 uIU/ml (0.34-5.60) 05/15/18 06:10 Urine Source CATH 05/14/18 23:00 Urine Color YELLOW 05/14/18 23:00 Urine Clarity CLEAR (CLEAR) 05/14/18 23:00 Urine pH 7.0 (4.6 - 8.0) 05/14/18 23:00 Ur Specific [place] 1.015 (1.005-1.030) 05/14/18 23:00 Urine Protein 30 mg/dL (NEGATIVE) H 05/14/18 23:00 Urine Glucose (UA) NEGATIVE mg/dL (NEGATIVE) 05/14/18 23:00 Urine Ketones 40 mg/dL (NEGATIVE) H 05/14/18 23:00 Urine Blood LARGE (NEGATIVE) H 05/14/18 23:00 Urine Nitrate NEGATIVE (NEGATIVE) 05/14/18 23:00 Urine Bilirubin NEGATIVE (NEGATIVE) 05/14/18 23:00 Urine Urobilinogen 1.0 E.U./dL (0.2 - 1.0) 05/14/18 23:00 Ur Leukocyte Esterase NEGATIVE (NEGATIVE) 05/14/18 23:00 Urine RBC 10-25 /hpf (0-5) H 05/14/18 23:00 Urine WBC 2-5 /hpf (0-5) 05/14/18 23:00 Ur Epithelial Cells RARE /lpf (FEW) 05/14/18 23:00 Urine Bacteria NONE SEEN /hpf (NONE SEEN) 05/14/18 23:00 Urine Mucus FEW /lpf (FEW) 05/14/18 23:00 Urine Test NEGATIVE 05/24/18 10:05 Urine Opiates Screen NEGATIVE (NEGATIVE) 05/14/18 23:00 Urine Methadone Screen NEGATIVE (NEGATIVE) 05/14/18 23:00 Ur Barbiturates Screen NEGATIVE (NEGATIVE) 05/14/18 23:00 Valproic Acid < 10.0 ug/mL (50.0-100.0) L 05/21/18 04:50 Ur Tricyclics Screen POSITIVE (NEGATIVE) H 05/14/18 23:00 Ur Phencyclidine Scrn NEGATIVE (NEGATIVE) 05/14/18 23:00 Amphetamines Screen NEGATIVE (NEGATIVE) 05/14/18 23:00 U Methamphetamines Scrn NEGATIVE (NEGATIVE) 05/14/18 23:00 U Benzodiazepines Scrn NEGATIVE (NEGATIVE) 05/14/18 23:00 U Cocaine Metab Screen NEGATIVE (NEGATIVE) 05/14/18 23:00 U Cannabinoids Screen NEGATIVE (NEGATIVE) 05/14/18 23:00 Helicobacter pylori Ab NEGATIVE (NEGATIVE) 05/24/18 11:45 Blood Type O POSITIVE 05/24/18 07:50 Antibody Screen NEGATIVE 05/24/18 07:50 - Physical Exam Vitals and I&O: Vital Signs Temp 98.3 F 05/29/18 08:00 Pulse 90 05/29/18 08:00 Resp 18 05/29/18 08:00 BP 133/79 05/29/18 08:00 Pulse Ox 97 05/29/18 08:00 Intake & Output 05/28/18 05/29/18 05/29/18 18:59 06:59 18:59 Intake Total 1011 1220 Balance 1011 1220 Weight (lbs) 148 lb 3.2 oz 151 lb Intake: Intake, IV Amount 1000 D5-0.9%Ns 1,000 ml @ 50 1000 mls/hr IV .Q20H [facility] Rx#: [id number] Tube Feeding 711 220 Other 300 Other: # Voids 3 # Bowel Movements 0 Weight Source Bedscale Bedscale Active Medications: Current Medications Acetaminophen (Tylenol 650mg/20.3ml Suspension) 650 mg GT Q6H PRN PRN Reason: pain Stop: 07/23/18 13:39 Divalproex Sodium (Depakote Dr) 250 mg PO Q12HR JOHN; Protocol Stop: 07/23/18 20:59 Last Admin: 05/29/18 09:34 Dose: 250 mg Haloperidol (Haldol) 2 mg PO BID PRN; Protocol PRN Reason: Agitation Stop: 07/15/18 16:59 Last Admin: 05/28/18 20:02 Dose: 2 mg Haloperidol (Haldol) 2 mg PO BID JOHN Stop: 07/16/18 08:59 Last Admin: 05/29/18 09:33 Dose: 2 mg Dextrose/Sodium Chloride (D5-0.9%Ns) 1,000 mls @ 50 mls/hr IV .Q20H JOHN Stop: 07/20/18 12:05 Last Admin: 05/29/18 00:09 Dose: 50 mls/hr Lactulose (Cephulac) 20 gm PO DAILY JOHN Stop: 07/14/18 08:59 Last Admin: 05/29/18 09:34 Dose: 20 gm Levothyroxine Sodium (Synthroid) 0.025 mg PO QDAC JOHN Stop: 07/14/18 08:59 Last Admin: 05/29/18 06:30 Dose: 0.025 mg Lorazepam (Ativan) 1 mg IVP Q4HR PRN; Protocol PRN Reason: Seizures Stop: 07/19/18 19:04 Last Admin: 05/28/18 21:27 Dose: 1 mg Morphine Sulfate (Morphine) 1 mg IVP Q4HR PRN PRN Reason: mild to moderate pain Stop: 07/23/18 15:26 Last Admin: 05/24/18 16:29 Dose: 1 mg Morphine Sulfate (Morphine) 2 mg IVP Q4HR PRN PRN Reason: Severe Pain Stop: 07/23/18 15:28 Ondansetron HCl (Zofran) 4 mg IV Q6H PRN PRN Reason: Nausea / Vomiting Stop: 07/14/18 09:50 Last Admin: 05/20/18 13:46 Dose: 4 mg Pantoprazole Sodium (Protonix) 40 mg IVP DAILY [facility] Stop: 07/20/18 11:59 Last Admin: 05/29/18 08:51 Dose: 40 mg Cabergoline 0.25mg (Tab) 1 PO QTHUR [facility] Stop: 07/26/18 08:59 Last Admin: 08/23/18 17:47 Dose: Not Given Cabergoline 0.5mg (Tab) 1 PO QMON JOHN Stop: 07/20/18 15:29 Last Admin: 05/24/18 09:43 Dose: Not Given Polyethylene Glycol (Miralax) 17 gm PO DAILY JOHN Stop: 07/16/18 13:14 Last Admin: 05/29/18 09:33 Dose: 17 gm Quetiapine Fumarate (Seroquel) 150 mg PO HS JOHN; Protocol Stop: 07/14/18 20:59 Last Admin: 05/28/18 20:00 Dose: 150 mg Vitamin D (Vitamin D3) 2,000 iu PO DAILY JOHN Stop: 07/14/18 08:59 Last Admin: 05/29/18 09:34 Dose: 2,000 iu General: weak, alert HEENT: NC/AT, PERRLA Neck: Supple Lungs: CTAB Cardiovascular: RRR, Normal S1, Normal S2, without murmur Abdomen: soft, non-tender, non-distended, +GT Neurological: alert - Procedures Procedures: Procedures Procedure Code Date EXCISION OF STOMACH, ENDO, DIAGN [id number] 05/15/18 INSERTION OF FEEDING DEVICE INTO STOMACH, OPEN APPROACH [id number] 05/15/18 Internal Medicine Assmt/Plan - Assessment Assessment: failure to thrive s/p peg mr vitamin d deficiency gerd - Plan Plan: pt eval aspiration precautions continue gt feedings follow up labs in am continue current plan of care Nutritional Asmnt/Malnutr-PDOC - Dietary Evaluation Malnutrition Findings (Please click <Entered> for more info): Nutritional Asmnt/Malnutrition Start: 05/17/18 11: 40 Text: Status: Complete Freq: Protocol: Document 05/17/18 11:40 LCHENG (Rec: 05/17/18 11:51 [email or web address]) Nutritional Asmnt/Malnutrition Patient General Information Nutritional Screening High Risk Diagnosis FTT Pertinent Medical Hx/Surgical Hx mental retardation, hypothyroidism. Subjective Information Pt was not able to communicate d/t mental status. Per nurse, pt has been refusing to eat. Per EMR, PO intake 0% of most meals. Swallow eval scheduled for today. Current Diet Order/ Nutrition Support full liquid. Pertinent Medications D5-0.45ns, synthroid, seroquel , vit D3 Pertinent Labs 05/15 Glucose 120, alb 3.0 Nutritional Hx/Data Height 5 ft 1 in Height (Calculated Centimeters) 154.9 Current Weight (lbs) 118 lb Weight (Calculated Kilograms) 53.5 Weight (Calculated Grams) 66367.9 Body Mass Index (BMI) 22.3 Weight Status Approriate GI Symptoms GI Symptoms None Last BM not indicated Skin Integrity/Comment: abrasion to left lower knee and right lower leg Current %PO Negligible < 25% Estimated Nutritional Goals BEE in Kcals: Using Current wt Calories/Kcals/Kg 25-30 Kcals Calculated 2380-5771 Protein: Using Current wt Protein g/k-1.2 Protein Calculated 54-65 Fluid: ml 1350-1620ml (1ml/kcal) Nutritional Problem 1. Problem Problem inadequete food intake Etiology possible mental status/poor appetite Signs/Symptoms: PO intake <25% Intervention/Recommendation Comments 1. Wait for swallow eval result. Advance diet per ST recommendation. Assist pt with meals. MD to consider appetite stimulant as needed. 2. Monitor PO intake, wt, labs and skin integrity 3. F/U as high risk in 2-3 days, 05/19-05/20 Expected Outcomes/Goals Expected Outcomes/Goals 1. PO intake to meet at least 75% of nutritional needs. 2. Wt stability, skin to remain intact, labs to approach WNL.
[2018-05-30 05:48] LABS: % BASOPHILS 0.2 % (0.0-2.0); % EOSINOPHILS 1.9 % (0.0-5.0); % LYMPHOCYTES 39.2 % (20.0-50.0); % MONOCYTES 8.5 % (2.0-10.0); % NEUTROPHILS 50.2 % (40.0-80.0); EOSINOPHILE ABSOLUTE 0.1 Th/cmm (0.1-0.4); HEMOGLOBIN 11.8 gm/dL (12-16); LYMPHOCYTE ABSOLUTE 1.7 Th/cmm (1.5-3.0); MEAN CELL VOLUME 101.2 fl (81-100); MEAN CORPUSCULAR HEMOGLOBIN 34.2 pg (27.0-31.0); MEAN CORPUSCULAR HGB CONC 33.7 pg (28.0-36.0); MONOCYTE ABSOLUTE 0.4 Th/cmm (0.3-1.0); NEUTROPHILE ABSOLUTE 2.1 Th/cmm (1.8-8.0); PLATELET COUNT 206 Th/cmm (150-400); RED BLOOD COUNT 3.46 Mil/cmm (3.80-5.10); RED CELL DISTRIBUTION WIDTH 13.4 % (11.5-20.0); WHITE BLOOD COUNT 4.3 Th/cmm (4.8-10.8)
[2018-05-30 05:58] LABS: ANION GAP 8.5 (7.0-16.0); BUN - UREA NITROGEN 9 mg/dL (7-25); CALCIUM SERUM 9.3 mg/dL (8.6-10.3); CARBON DIOXIDE 26.4 mEq/L (21.0-31.0); CHLORIDE 105 mEq/L (98-107); CREATININE - SERUM 0.5 mg/dL (0.6-1.2); GFR AFRICAN-AMERICAN > 60.0 ml/min (>90); GFR NON AFRICAN-AMERICAN > 60.0 ml/min; GLUCOSE 107 mg/dL (70-105); POTASSIUM SERUM 3.9 mEq/L (3.5-5.1); SODIUM SERUM 136 mEq/L (136-145)
[2018-05-30] MEDS: Levothyroxine 0.025 Mg Tab PO SCH (06:41)
[2018-05-30] MEDS: Lactulose 10 Gm/15 mL 30mL UDC PO SCH (08:56)
[2018-05-30] MEDS: Vitamin D3 2,000 IU SGL PO SCH (08:56)
[2018-05-30] MEDS: POLYETHYLENE GLYCOL 3350 17 GM PACK PO SCH (08:56)
--- NOTE | 2018-05-30 12:57 | General Progress Note ---
Subjective - Review of Systems Events since last encounter: patient awake in no distress Subjective: patient awake admitted with failure to thrive is mentally challenge Objective - Results Result Diagrams: 05/30/18 05:30 05/30/18 05:30 Recent Labs: Laboratory Last Values WBC 4.3 Th/cmm (4.8-10.8) L 05/30/18 05:30 RBC 3.46 Mil/cmm (3.80-5.10) L 05/30/18 05:30 Hgb 11.8 gm/dL (12-16) L 05/30/18 05:30 Hct 35.0 % (41.0-60) L 05/30/18 05:30 MCV 101.2 fl (81-100) H 05/30/18 05:30 MCH 34.2 pg (27.0-31.0) H 05/30/18 05:30 MCHC Differential 33.7 pg (28.0-36.0) 05/30/18 05:30 RDW 13.4 % (11.5-20.0) 05/30/18 05:30 Plt Count 206 Th/cmm (150-400) 05/30/18 05:30 MPV 7.0 fl 05/30/18 05:30 Add Manual Diff YES 05/15/18 06:10 Neutrophils % 50.2 % (40.0-80.0) 05/30/18 05:30 Band Neutrophils % 4 % (0-10) 05/15/18 06:10 Lymphocytes % 39.2 % (20.0-50.0) 05/30/18 05:30 Monocytes % 8.5 % (2.0-10.0) 05/30/18 05:30 Eosinophils % 1.9 % (0.0-5.0) 05/30/18 05:30 Basophils % 0.2 % (0.0-2.0) 05/30/18 05:30 Neutrophils (Manual) 52 % (40-80) 05/15/18 06:10 Lymphocytes 30 % (20-50) 05/15/18 06:10 Monocytes 14 % (2-10) H 05/15/18 06:10 Eosinophils 0 % (0-5) 05/15/18 06:10 Basophils 0 % (0-3) 05/15/18 06:10 Platelet Estimate ADEQUATE (NORMAL) 05/14/18 22:40 Platelet Morphology NORMAL (NORMAL) 05/14/18 22:40 RBC Morph Micro Appear NORMAL (NORMAL) 05/14/18 22:40 PT 11.1 SECONDS (9.5-11.5) 05/24/18 04:50 INR 1.07 (0.5-1.4) 05/24/18 04:50 PTT (Actin FS) 28.2 SECONDS (26.0-38.0) 05/24/18 04:50 Sodium 136 mEq/L (136-145) 05/30/18 05:30 Potassium 3.9 mEq/L (3.5-5.1) 05/30/18 05:30 Chloride 105 mEq/L (98-107) 05/30/18 05:30 Carbon Dioxide 26.4 mEq/L (21.0-31.0) 05/30/18 05:30 Anion Gap 8.5 (7.0-16.0) 05/30/18 05:30 BUN 9 mg/dL (7-25) 05/30/18 05:30 Creatinine 0.5 mg/dL (0.6-1.2) L 05/30/18 05:30 Est GFR ( Amer) > 60.0 ml/min (>90) 05/30/18 05:30 Est GFR (Non-Af Amer) > 60.0 ml/min 05/30/18 05:30 BUN/Creatinine Ratio 18.0 05/30/18 05:30 Glucose 107 mg/dL (70-105) H 05/30/18 05:30 Calcium 9.3 mg/dL (8.6-10.3) 05/30/18 05:30 Phosphorus 3.6 mg/dL (2.5-5.0) 05/14/18 22:40 Magnesium 1.8 mg/dL (1.9-2.7) L 05/14/18 22:40 Total Bilirubin 0.5 mg/dL (0.3-1.0) 05/21/18 04:50 AST 12 U/L (13-39) L 05/21/18 04:50 ALT 9 U/L (7-52) 05/21/18 04:50 Alkaline Phosphatase 52 U/L (34-104) 05/21/18 04:50 Total Protein 5.9 gm/dL (6.0-8.3) L 05/21/18 04:50 Albumin 3.3 gm/dL (3.7-5.3) L 05/21/18 04:50 Globulin 2.6 gm/dL 05/21/18 04:50 Albumin/Globulin Ratio 1.3 (1.0-1.8) 05/21/18 04:50 Triglycerides 75 mg/dL (<150) 05/15/18 06:10 Cholesterol 147 mg/dL (<200) 05/15/18 06:10 LDL Cholesterol Direct 67 mg/dL (75-193) L 05/15/18 06:10 HDL Cholesterol 63 mg/dL (23-92) 05/15/18 06:10 TSH 3.28 uIU/ml (0.34-5.60) 05/15/18 06:10 Urine Source CATH 05/14/18 23:00 Urine Color YELLOW 05/14/18 23:00 Urine Clarity CLEAR (CLEAR) 05/14/18 23:00 Urine pH 7.0 (4.6 - 8.0) 05/14/18 23:00 Ur Specific [place] 1.015 (1.005-1.030) 05/14/18 23:00 Urine Protein 30 mg/dL (NEGATIVE) H 05/14/18 23:00 Urine Glucose (UA) NEGATIVE mg/dL (NEGATIVE) 05/14/18 23:00 Urine Ketones 40 mg/dL (NEGATIVE) H 05/14/18 23:00 Urine Blood LARGE (NEGATIVE) H 05/14/18 23:00 Urine Nitrate NEGATIVE (NEGATIVE) 05/14/18 23:00 Urine Bilirubin NEGATIVE (NEGATIVE) 05/14/18 23:00 Urine Urobilinogen 1.0 E.U./dL (0.2 - 1.0) 05/14/18 23:00 Ur Leukocyte Esterase NEGATIVE (NEGATIVE) 05/14/18 23:00 Urine RBC 10-25 /hpf (0-5) H 05/14/18 23:00 Urine WBC 2-5 /hpf (0-5) 05/14/18 23:00 Ur Epithelial Cells RARE /lpf (FEW) 05/14/18 23:00 Urine Bacteria NONE SEEN /hpf (NONE SEEN) 05/14/18 23:00 Urine Mucus FEW /lpf (FEW) 05/14/18 23:00 Urine Test NEGATIVE 05/24/18 10:05 Urine Opiates Screen NEGATIVE (NEGATIVE) 05/14/18 23:00 Urine Methadone Screen NEGATIVE (NEGATIVE) 05/14/18 23:00 Ur Barbiturates Screen NEGATIVE (NEGATIVE) 05/14/18 23:00 Valproic Acid < 10.0 ug/mL (50.0-100.0) L 05/21/18 04:50 Ur Tricyclics Screen POSITIVE (NEGATIVE) H 05/14/18 23:00 Ur Phencyclidine Scrn NEGATIVE (NEGATIVE) 05/14/18 23:00 Amphetamines Screen NEGATIVE (NEGATIVE) 05/14/18 23:00 U Methamphetamines Scrn NEGATIVE (NEGATIVE) 05/14/18 23:00 U Benzodiazepines Scrn NEGATIVE (NEGATIVE) 05/14/18 23:00 U Cocaine Metab Screen NEGATIVE (NEGATIVE) 05/14/18 23:00 U Cannabinoids Screen NEGATIVE (NEGATIVE) 05/14/18 23:00 Helicobacter pylori Ab NEGATIVE (NEGATIVE) 05/24/18 11:45 Blood Type O POSITIVE 05/24/18 07:50 Antibody Screen NEGATIVE 05/24/18 07:50 - Physical Exam Vitals and I&O: Vital Signs Temp 96.4 F 05/30/18 11:44 Pulse 72 05/30/18 11:44 Resp 18 05/30/18 11:44 BP 102/64 05/30/18 11:44 Pulse Ox 98 05/30/18 11:44 Intake & Output 05/29/18 05/30/18 05/30/18 18:59 06:59 18:59 Intake Total 711 640 Balance 711 640 Weight (lbs) 70.307 kg 70.307 kg Intake: Tube Feeding 711 440 Other 200 Other: # Voids 3 # Bowel Movements 1 Weight Source Bedscale Estimated Active Medications: Current Medications Acetaminophen (Tylenol 650mg/20.3ml Suspension) 650 mg GT Q6H PRN PRN Reason: pain Stop: 07/23/18 13:39 Divalproex Sodium (Depakote Dr) 250 mg PO Q12HR JOHN; Protocol Stop: 07/23/18 20:59 Last Admin: 05/30/18 08:55 Dose: 250 mg Haloperidol (Haldol) 2 mg PO BID PRN; Protocol PRN Reason: Agitation Stop: 07/15/18 16:59 Last Admin: 05/29/18 20:03 Dose: 2 mg Haloperidol (Haldol) 2 mg PO BID JOHN Stop: 07/16/18 08:59 Last Admin: 05/30/18 08:56 Dose: 2 mg Dextrose/Sodium Chloride (D5-0.9%Ns) 1,000 mls @ 50 mls/hr IV .Q20H JOHN Stop: 07/20/18 12:05 Last Admin: 05/29/18 00:09 Dose: 50 mls/hr Lactulose (Cephulac) 20 gm PO DAILY JOHN Stop: 07/14/18 08:59 Last Admin: 05/30/18 08:56 Dose: 20 gm Levothyroxine Sodium (Synthroid) 0.025 mg PO QDAC JOHN Stop: 07/14/18 08:59 Last Admin: 05/30/18 06:41 Dose: 0.025 mg Lorazepam (Ativan) 1 mg IVP Q4HR PRN; Protocol PRN Reason: Seizures Stop: 07/19/18 19:04 Last Admin: 05/30/18 01:43 Dose: 1 mg Morphine Sulfate (Morphine) 1 mg IVP Q4HR PRN PRN Reason: mild to moderate pain Stop: 07/23/18 15:26 Last Admin: 05/24/18 16:29 Dose: 1 mg Morphine Sulfate (Morphine) 2 mg IVP Q4HR PRN PRN Reason: Severe Pain Stop: 07/23/18 15:28 Ondansetron HCl (Zofran) 4 mg IV Q6H PRN PRN Reason: Nausea / Vomiting Stop: 07/14/18 09:50 Last Admin: 05/20/18 13:46 Dose: 4 mg Pantoprazole Sodium (Protonix) 40 mg IVP DAILY JOHN Stop: 07/20/18 11:59 Last Admin: 05/30/18 08:56 Dose: 40 mg Cabergoline 0.25mg (Tab) 1 PO QTHUR JOHN Stop: 07/26/18 08:59 Last Admin: 05/27/18 17:47 Dose: Not Given Cabergoline 0.5mg (Tab) 1 PO QMON JOHN Stop: 07/20/18 15:29 Last Admin: 05/24/18 09:43 Dose: Not Given Polyethylene Glycol (Miralax) 17 gm PO DAILY [facility] Stop: 07/16/18 13:14 Last Admin: 05/30/18 08:56 Dose: 17 gm Quetiapine Fumarate (Seroquel) 150 mg PO HS [facility]; Protocol Stop: 07/14/18 20:59 Last Admin: 05/29/18 20:03 Dose: 150 mg Vitamin D (Vitamin D3) 2,000 iu PO DAILY [facility] Stop: 07/14/18 08:59 Last Admin: 05/30/18 08:56 Dose: 2,000 iu General: No acute distress HEENT: Atraumatic Neck: Supple Cardiovascular: Regular rate Lungs: Clear to auscultation, Normal air movement Abdomen: Bowel sounds, Soft, Other (INTACT GT, BINDER), no Tender, no Distended - Procedures Procedures: Procedures Procedure Code Date EXCISION OF STOMACH, ENDO, DIAGN [id number] 05/15/18 INSERTION OF FEEDING DEVICE INTO STOMACH, OPEN APPROACH [id number] 05/15/18 Assessment/Plan - Problem List Patient Problems: All Active Problems Failure to thrive (Acute) [id number] GERD (gastroesophageal reflux disease) (Acute) K21.9 PEG (percutaneous endoscopic gastrostomy) status (Acute) Z93.1 Vitamin B deficiency (Acute) E53.9 Vitamin B deficiency (Acute) E53.9 - Plan Plan: as per order sheet Nutritional Asmnt/Malnutr-PDOC - Dietary Evaluation Malnutrition Findings (Please click <Entered> for more info): Nutritional Asmnt/Malnutrition Start: 05/17/18 11: 40 Text: Status: Complete Freq: Protocol: Document 05/17/18 11:40 [email or web address] (Rec: 05/17/18 11:51 LCNAZ [email or web address]) Nutritional Asmnt/Malnutrition Patient General Information Nutritional Screening High Risk Diagnosis FTT Pertinent Medical Hx/Surgical Hx mental retardation, hypothyroidism. Subjective Information Pt was not able to communicate d/t mental status. Per nurse, pt has been refusing to eat. Per EMR, PO intake 0% of most meals. Swallow eval scheduled for today. Current Diet Order/ Nutrition Support full liquid. Pertinent Medications D5-0.45ns, synthroid, seroquel , vit D3 Pertinent Labs 05/15 Glucose 120, alb 3.0 Nutritional Hx/Data Height 1.55 m Height (Calculated Centimeters) 154.9 Current Weight (lbs) 53.524 kg Weight (Calculated Kilograms) 53.5 Weight (Calculated Grams) 87464.9 Body Mass Index (BMI) 22.3 Weight Status Approriate GI Symptoms GI Symptoms None Last BM not indicated Skin Integrity/Comment: abrasion to left lower knee and right lower leg Current %PO Negligible < 25% Estimated Nutritional Goals BEE in Kcals: Using Current wt Calories/Kcals/Kg 25-30 Kcals Calculated 9755-8235 Protein: Using Current wt Protein g/k-1.2 Protein Calculated 54-65 Fluid: ml 1350-1620ml (1ml/kcal) Nutritional Problem 1. Problem Problem inadequete food intake Etiology possible mental status/poor appetite Signs/Symptoms: PO intake <25% Intervention/Recommendation Comments 1. Wait for swallow eval result. Advance diet per ST recommendation. Assist pt with meals. MD to consider appetite stimulant as needed. 2. Monitor PO intake, wt, labs and skin integrity 3. F/U as high risk in 2-3 days, 05/19-05/20 Expected Outcomes/Goals Expected Outcomes/Goals 1. PO intake to meet at least 75% of nutritional needs. 2. Wt stability, skin to remain intact, labs to approach WNL.
[2018-05-30] MEDS: D5-0.9%NS 1,000 ML IV SCH (23:55)
[2018-05-31] MEDS: Levothyroxine 0.025 Mg Tab PO SCH (06:30)
[2018-05-31] MEDS: POLYETHYLENE GLYCOL 3350 17 GM PACK PO SCH (09:06)
[2018-05-31] MEDS: Lactulose 10 Gm/15 mL 30mL UDC PO SCH (09:07)
[2018-05-31] MEDS: Vitamin D3 2,000 IU SGL PO SCH (09:07)
[2018-05-31] MEDS: CABERGOLINE 0.5 MG PO SCH (09:22)
--- NOTE | 2018-05-31 16:39 | Internal Medicine Prog Note ---
Internal Medicine Subjective - Subjective Patient is:: awake Per staff patient has:: tolerating meds Internal Medicine Objective - Results Result Diagrams: 05/30/18 05:30 05/30/18 05:30 Recent Labs: Laboratory Last Values WBC 4.3 Th/cmm (4.8-10.8) L 05/30/18 05:30 RBC 3.46 Mil/cmm (3.80-5.10) L 05/30/18 05:30 Hgb 11.8 gm/dL (12-16) L 05/30/18 05:30 Hct 35.0 % (41.0-60) L 05/30/18 05:30 MCV 101.2 fl (81-100) H 05/30/18 05:30 MCH 34.2 pg (27.0-31.0) H 05/30/18 05:30 MCHC Differential 33.7 pg (28.0-36.0) 05/30/18 05:30 RDW 13.4 % (11.5-20.0) 05/30/18 05:30 Plt Count 206 Th/cmm (150-400) 05/30/18 05:30 MPV 7.0 fl 05/30/18 05:30 Add Manual Diff YES 05/15/18 06:10 Neutrophils % 50.2 % (40.0-80.0) 05/30/18 05:30 Band Neutrophils % 4 % (0-10) 05/15/18 06:10 Lymphocytes % 39.2 % (20.0-50.0) 05/30/18 05:30 Monocytes % 8.5 % (2.0-10.0) 05/30/18 05:30 Eosinophils % 1.9 % (0.0-5.0) 05/30/18 05:30 Basophils % 0.2 % (0.0-2.0) 05/30/18 05:30 Neutrophils (Manual) 52 % (40-80) 05/15/18 06:10 Lymphocytes 30 % (20-50) 05/15/18 06:10 Monocytes 14 % (2-10) H 05/15/18 06:10 Eosinophils 0 % (0-5) 05/15/18 06:10 Basophils 0 % (0-3) 05/15/18 06:10 Platelet Estimate ADEQUATE (NORMAL) 05/14/18 22:40 Platelet Morphology NORMAL (NORMAL) 05/14/18 22:40 RBC Morph Micro Appear NORMAL (NORMAL) 05/14/18 22:40 PT 11.1 SECONDS (9.5-11.5) 05/24/18 04:50 INR 1.07 (0.5-1.4) 05/24/18 04:50 PTT (Actin FS) 28.2 SECONDS (26.0-38.0) 05/24/18 04:50 Sodium 136 mEq/L (136-145) 05/30/18 05:30 Potassium 3.9 mEq/L (3.5-5.1) 05/30/18 05:30 Chloride 105 mEq/L (98-107) 05/30/18 05:30 Carbon Dioxide 26.4 mEq/L (21.0-31.0) 05/30/18 05:30 Anion Gap 8.5 (7.0-16.0) 05/30/18 05:30 BUN 9 mg/dL (7-25) 05/30/18 05:30 Creatinine 0.5 mg/dL (0.6-1.2) L 05/30/18 05:30 Est GFR ( Amer) > 60.0 ml/min (>90) 05/30/18 05:30 Est GFR (Non-Af Amer) > 60.0 ml/min 05/30/18 05:30 BUN/Creatinine Ratio 18.0 05/30/18 05:30 Glucose 107 mg/dL (70-105) H 05/30/18 05:30 Calcium 9.3 mg/dL (8.6-10.3) 05/30/18 05:30 Phosphorus 3.6 mg/dL (2.5-5.0) 05/14/18 22:40 Magnesium 1.8 mg/dL (1.9-2.7) L 05/14/18 22:40 Total Bilirubin 0.5 mg/dL (0.3-1.0) 05/21/18 04:50 AST 12 U/L (13-39) L 05/21/18 04:50 ALT 9 U/L (7-52) 05/21/18 04:50 Alkaline Phosphatase 52 U/L (34-104) 05/21/18 04:50 Total Protein 5.9 gm/dL (6.0-8.3) L 05/21/18 04:50 Albumin 3.3 gm/dL (3.7-5.3) L 05/21/18 04:50 Globulin 2.6 gm/dL 05/21/18 04:50 Albumin/Globulin Ratio 1.3 (1.0-1.8) 05/21/18 04:50 Triglycerides 75 mg/dL (<150) 05/15/18 06:10 Cholesterol 147 mg/dL (<200) 05/15/18 06:10 LDL Cholesterol Direct 67 mg/dL (75-193) L 05/15/18 06:10 HDL Cholesterol 63 mg/dL (23-92) 05/15/18 06:10 TSH 3.28 uIU/ml (0.34-5.60) 05/15/18 06:10 Urine Source CATH 05/14/18 23:00 Urine Color YELLOW 05/14/18 23:00 Urine Clarity CLEAR (CLEAR) 05/14/18 23:00 Urine pH 7.0 (4.6 - 8.0) 05/14/18 23:00 Ur Specific [place] 1.015 (1.005-1.030) 05/14/18 23:00 Urine Protein 30 mg/dL (NEGATIVE) H 05/14/18 23:00 Urine Glucose (UA) NEGATIVE mg/dL (NEGATIVE) 05/14/18 23:00 Urine Ketones 40 mg/dL (NEGATIVE) H 05/14/18 23:00 Urine Blood LARGE (NEGATIVE) H 05/14/18 23:00 Urine Nitrate NEGATIVE (NEGATIVE) 05/14/18 23:00 Urine Bilirubin NEGATIVE (NEGATIVE) 05/14/18 23:00 Urine Urobilinogen 1.0 E.U./dL (0.2 - 1.0) 05/14/18 23:00 Ur Leukocyte Esterase NEGATIVE (NEGATIVE) 05/14/18 23:00 Urine RBC 10-25 /hpf (0-5) H 05/14/18 23:00 Urine WBC 2-5 /hpf (0-5) 05/14/18 23:00 Ur Epithelial Cells RARE /lpf (FEW) 05/14/18 23:00 Urine Bacteria NONE SEEN /hpf (NONE SEEN) 05/14/18 23:00 Urine Mucus FEW /lpf (FEW) 05/14/18 23:00 Urine Test NEGATIVE 05/24/18 10:05 Urine Opiates Screen NEGATIVE (NEGATIVE) 05/14/18 23:00 Urine Methadone Screen NEGATIVE (NEGATIVE) 05/14/18 23:00 Ur Barbiturates Screen NEGATIVE (NEGATIVE) 05/14/18 23:00 Valproic Acid < 10.0 ug/mL (50.0-100.0) L 05/21/18 04:50 Ur Tricyclics Screen POSITIVE (NEGATIVE) H 05/14/18 23:00 Ur Phencyclidine Scrn NEGATIVE (NEGATIVE) 05/14/18 23:00 Amphetamines Screen NEGATIVE (NEGATIVE) 05/14/18 23:00 U Methamphetamines Scrn NEGATIVE (NEGATIVE) 05/14/18 23:00 U Benzodiazepines Scrn NEGATIVE (NEGATIVE) 05/14/18 23:00 U Cocaine Metab Screen NEGATIVE (NEGATIVE) 05/14/18 23:00 U Cannabinoids Screen NEGATIVE (NEGATIVE) 05/14/18 23:00 Helicobacter pylori Ab NEGATIVE (NEGATIVE) 05/24/18 11:45 Blood Type O POSITIVE 05/24/18 07:50 Antibody Screen NEGATIVE 05/24/18 07:50 - Physical Exam Vitals and I&O: Vital Signs Temp 98.7 F 05/31/18 12:00 Pulse 99 05/31/18 12:00 Resp 18 05/31/18 12:00 BP 97/56 05/31/18 12:00 Pulse Ox 99 05/31/18 12:00 Intake & Output 05/30/18 05/31/18 05/31/18 18:59 06:59 18:59 Intake Total 540 Balance 540 Weight (lbs) 70.307 kg Intake: Tube Feeding 440 Other 100 Other: # Voids 1 Weight Source Estimated Active Medications: Current Medications Acetaminophen (Tylenol 650mg/20.3ml Suspension) 650 mg GT Q6H PRN PRN Reason: pain Stop: 07/23/18 13:39 Divalproex Sodium (Depakote Dr) 250 mg PO Q12HR JOHN; Protocol Stop: 07/23/18 20:59 Last Admin: 05/31/18 09:07 Dose: 250 mg Haloperidol (Haldol) 2 mg PO BID PRN; Protocol PRN Reason: Agitation Stop: 07/15/18 16:59 Last Admin: 05/29/18 20:03 Dose: 2 mg Haloperidol (Haldol) 2 mg PO BID JOHN Stop: 07/16/18 08:59 Last Admin: 05/31/18 09:07 Dose: 2 mg Dextrose/Sodium Chloride (D5-0.9%Ns) 1,000 mls @ 50 mls/hr IV .Q20H JOHN Stop: 07/20/18 12:05 Last Admin: 05/30/18 23:55 Dose: 50 mls/hr Lactulose (Cephulac) 20 gm PO DAILY JOHN Stop: 07/14/18 08:59 Last Admin: 05/31/18 09:07 Dose: 20 gm Levothyroxine Sodium (Synthroid) 0.025 mg PO QDAC JOHN Stop: 07/14/18 08:59 Last Admin: 05/31/18 06:30 Dose: 0.025 mg Lorazepam (Ativan) 1 mg IVP Q4HR PRN; Protocol PRN Reason: Seizures Stop: 07/19/18 19:04 Last Admin: 05/30/18 22:30 Dose: 1 mg Morphine Sulfate (Morphine) 1 mg IVP Q4HR PRN PRN Reason: mild to moderate pain Stop: 07/23/18 15:26 Last Admin: 05/24/18 16:29 Dose: 1 mg Morphine Sulfate (Morphine) 2 mg IVP Q4HR PRN PRN Reason: Severe Pain Stop: 07/23/18 15:28 Ondansetron HCl (Zofran) 4 mg IV Q6H PRN PRN Reason: Nausea / Vomiting Stop: 07/14/18 09:50 Last Admin: 05/20/18 13:46 Dose: 4 mg Pantoprazole Sodium (Protonix) 40 mg IVP DAILY JOHN Stop: 07/20/18 11:59 Last Admin: 05/31/18 09:07 Dose: 40 mg Cabergoline 0.25mg (Tab) 1 PO QTHUR JOHN Stop: 07/26/18 08:59 Last Admin: 05/27/18 17:47 Dose: Not Given Cabergoline 0.5mg (Tab) 1 PO QMON JOHN Stop: 07/20/18 15:29 Last Admin: 05/31/18 09:22 Dose: Not Given Polyethylene Glycol (Miralax) 17 gm PO DAILY JOHN Stop: 07/16/18 13:14 Last Admin: 05/31/18 09:06 Dose: 17 gm Quetiapine Fumarate (Seroquel) 150 mg PO HS JOHN; Protocol Stop: 07/14/18 20:59 Last Admin: 05/30/18 20:03 Dose: 150 mg Vitamin D (Vitamin D3) 2,000 iu PO DAILY JOHN Stop: 07/14/18 08:59 Last Admin: 05/31/18 09:07 Dose: 2,000 iu General: weak, alert HEENT: NC/AT, PERRLA Neck: Supple Lungs: CTAB Cardiovascular: RRR, Normal S1, Normal S2, without murmur Abdomen: soft, non-tender, non-distended, +GT Neurological: alert - Procedures Procedures: Procedures Procedure Code Date EXCISION OF STOMACH, ENDO, DIAGN [id number] 05/15/18 INSERTION OF FEEDING DEVICE INTO STOMACH, OPEN APPROACH [id number] 05/15/18 Internal Medicine Assmt/Plan - Plan Plan: as per order sheet Nutritional Asmnt/Malnutr-PDOC - Dietary Evaluation Malnutrition Findings (Please click <Entered> for more info): Nutritional Asmnt/Malnutrition Start: 05/17/18 11: 40 Text: Status: Complete Freq: Protocol: Document 05/17/18 11:40 LCHENG (Rec: 05/17/18 11:51 LCHENG [email or web address]) Nutritional Asmnt/Malnutrition Patient General Information Nutritional Screening High Risk Diagnosis FTT Pertinent Medical Hx/Surgical Hx mental retardation, hypothyroidism. Subjective Information Pt was not able to communicate d/t mental status. Per nurse, pt has been refusing to eat. Per EMR, PO intake 0% of most meals. Swallow eval scheduled for today. Current Diet Order/ Nutrition Support full liquid. Pertinent Medications D5-0.45ns, synthroid, seroquel , vit D3 Pertinent Labs 05/15 Glucose 120, alb 3.0 Nutritional Hx/Data Height 1.55 m Height (Calculated Centimeters) 154.9 Current Weight (lbs) 53.524 kg Weight (Calculated Kilograms) 53.5 Weight (Calculated Grams) 61647.9 Body Mass Index (BMI) 22.3 Weight Status Approriate GI Symptoms GI Symptoms None Last BM not indicated Skin Integrity/Comment: abrasion to left lower knee and right lower leg Current %PO Negligible < 25% Estimated Nutritional Goals BEE in Kcals: Using Current wt Calories/Kcals/Kg 25-30 Kcals Calculated 7475-2361 Protein: Using Current wt Protein g/k-1.2 Protein Calculated 54-65 Fluid: ml 1350-1620ml (1ml/kcal) Nutritional Problem 1. Problem Problem inadequete food intake Etiology possible mental status/poor appetite Signs/Symptoms: PO intake <25% Intervention/Recommendation Comments 1. Wait for swallow eval result. Advance diet per ST recommendation. Assist pt with meals. MD to consider appetite stimulant as needed. 2. Monitor PO intake, wt, labs and skin integrity 3. F/U as high risk in 2-3 days, 05/19-05/20 Expected Outcomes/Goals Expected Outcomes/Goals 1. PO intake to meet at least 75% of nutritional needs. 2. Wt stability, skin to remain intact, labs to approach WNL.
[2018-05-31] MEDS: D5-0.9%NS 1,000 ML IV SCH (17:59)
[2018-06-01] MEDS: Levothyroxine 0.025 Mg Tab PO SCH (08:52)
[2018-06-01] MEDS: Vitamin D3 2,000 IU SGL PO SCH (08:52)
[2018-06-01] MEDS: Lactulose 10 Gm/15 mL 30mL UDC PO SCH (08:53)
[2018-06-01] MEDS: POLYETHYLENE GLYCOL 3350 17 GM PACK PO SCH (08:53)
[2018-06-01] MEDS: D5-0.9%NS 1,000 ML IV SCH (13:58)
[2018-06-02] MEDS: Levothyroxine 0.025 Mg Tab PO SCH (06:35)
[2018-06-02] MEDS: Lactulose 10 Gm/15 mL 30mL UDC PO SCH (09:19)
[2018-06-02] MEDS: Vitamin D3 2,000 IU SGL PO SCH (09:19)
[2018-06-02] MEDS: POLYETHYLENE GLYCOL 3350 17 GM PACK PO SCH (09:20)
[2018-06-02] MEDS: D5-0.9%NS 1,000 ML IV SCH (09:21)
--- NOTE | 2018-06-02 13:50 | Internal Medicine Prog Note ---
Internal Medicine Subjective - Subjective Service Date: 06/02/18 Patient is:: awake Per staff patient has:: tolerating meds Internal Medicine Objective - Results Result Diagrams: 05/30/18 05:30 05/30/18 05:30 Recent Labs: Laboratory Last Values WBC 4.3 Th/cmm (4.8-10.8) L 05/30/18 05:30 RBC 3.46 Mil/cmm (3.80-5.10) L 05/30/18 05:30 Hgb 11.8 gm/dL (12-16) L 05/30/18 05:30 Hct 35.0 % (41.0-60) L 05/30/18 05:30 MCV 101.2 fl (81-100) H 05/30/18 05:30 MCH 34.2 pg (27.0-31.0) H 05/30/18 05:30 MCHC Differential 33.7 pg (28.0-36.0) 05/30/18 05:30 RDW 13.4 % (11.5-20.0) 05/30/18 05:30 Plt Count 206 Th/cmm (150-400) 05/30/18 05:30 MPV 7.0 fl 05/30/18 05:30 Add Manual Diff YES 05/15/18 06:10 Neutrophils % 50.2 % (40.0-80.0) 05/30/18 05:30 Band Neutrophils % 4 % (0-10) 05/15/18 06:10 Lymphocytes % 39.2 % (20.0-50.0) 05/30/18 05:30 Monocytes % 8.5 % (2.0-10.0) 05/30/18 05:30 Eosinophils % 1.9 % (0.0-5.0) 05/30/18 05:30 Basophils % 0.2 % (0.0-2.0) 05/30/18 05:30 Neutrophils (Manual) 52 % (40-80) 05/15/18 06:10 Lymphocytes 30 % (20-50) 05/15/18 06:10 Monocytes 14 % (2-10) H 05/15/18 06:10 Eosinophils 0 % (0-5) 05/15/18 06:10 Basophils 0 % (0-3) 05/15/18 06:10 Platelet Estimate ADEQUATE (NORMAL) 05/14/18 22:40 Platelet Morphology NORMAL (NORMAL) 05/14/18 22:40 RBC Morph Micro Appear NORMAL (NORMAL) 05/14/18 22:40 PT 11.1 SECONDS (9.5-11.5) 05/24/18 04:50 INR 1.07 (0.5-1.4) 05/24/18 04:50 PTT (Actin FS) 28.2 SECONDS (26.0-38.0) 05/24/18 04:50 Sodium 136 mEq/L (136-145) 05/30/18 05:30 Potassium 3.9 mEq/L (3.5-5.1) 05/30/18 05:30 Chloride 105 mEq/L (98-107) 05/30/18 05:30 Carbon Dioxide 26.4 mEq/L (21.0-31.0) 05/30/18 05:30 Anion Gap 8.5 (7.0-16.0) 05/30/18 05:30 BUN 9 mg/dL (7-25) 05/30/18 05:30 Creatinine 0.5 mg/dL (0.6-1.2) L 05/30/18 05:30 Est GFR ( Amer) > 60.0 ml/min (>90) 05/30/18 05:30 Est GFR (Non-Af Amer) > 60.0 ml/min 05/30/18 05:30 BUN/Creatinine Ratio 18.0 05/30/18 05:30 Glucose 107 mg/dL (70-105) H 05/30/18 05:30 Calcium 9.3 mg/dL (8.6-10.3) 05/30/18 05:30 Phosphorus 3.6 mg/dL (2.5-5.0) 05/14/18 22:40 Magnesium 1.8 mg/dL (1.9-2.7) L 05/14/18 22:40 Total Bilirubin 0.5 mg/dL (0.3-1.0) 05/21/18 04:50 AST 12 U/L (13-39) L 05/21/18 04:50 ALT 9 U/L (7-52) 05/21/18 04:50 Alkaline Phosphatase 52 U/L (34-104) 05/21/18 04:50 Total Protein 5.9 gm/dL (6.0-8.3) L 05/21/18 04:50 Albumin 3.3 gm/dL (3.7-5.3) L 05/21/18 04:50 Globulin 2.6 gm/dL 05/21/18 04:50 Albumin/Globulin Ratio 1.3 (1.0-1.8) 05/21/18 04:50 Triglycerides 75 mg/dL (<150) 05/15/18 06:10 Cholesterol 147 mg/dL (<200) 05/15/18 06:10 LDL Cholesterol Direct 67 mg/dL (75-193) L 05/15/18 06:10 HDL Cholesterol 63 mg/dL (23-92) 05/15/18 06:10 TSH 3.28 uIU/ml (0.34-5.60) 05/15/18 06:10 Urine Source CATH 05/14/18 23:00 Urine Color YELLOW 05/14/18 23:00 Urine Clarity CLEAR (CLEAR) 05/14/18 23:00 Urine pH 7.0 (4.6 - 8.0) 05/14/18 23:00 Ur Specific [place] 1.015 (1.005-1.030) 05/14/18 23:00 Urine Protein 30 mg/dL (NEGATIVE) H 05/14/18 23:00 Urine Glucose (UA) NEGATIVE mg/dL (NEGATIVE) 05/14/18 23:00 Urine Ketones 40 mg/dL (NEGATIVE) H 05/14/18 23:00 Urine Blood LARGE (NEGATIVE) H 05/14/18 23:00 Urine Nitrate NEGATIVE (NEGATIVE) 05/14/18 23:00 Urine Bilirubin NEGATIVE (NEGATIVE) 05/14/18 23:00 Urine Urobilinogen 1.0 E.U./dL (0.2 - 1.0) 05/14/18 23:00 Ur Leukocyte Esterase NEGATIVE (NEGATIVE) 05/14/18 23:00 Urine RBC 10-25 /hpf (0-5) H 05/14/18 23:00 Urine WBC 2-5 /hpf (0-5) 05/14/18 23:00 Ur Epithelial Cells RARE /lpf (FEW) 05/14/18 23:00 Urine Bacteria NONE SEEN /hpf (NONE SEEN) 05/14/18 23:00 Urine Mucus FEW /lpf (FEW) 05/14/18 23:00 Urine Test NEGATIVE 05/24/18 10:05 Urine Opiates Screen NEGATIVE (NEGATIVE) 05/14/18 23:00 Urine Methadone Screen NEGATIVE (NEGATIVE) 05/14/18 23:00 Ur Barbiturates Screen NEGATIVE (NEGATIVE) 05/14/18 23:00 Valproic Acid < 10.0 ug/mL (50.0-100.0) L 05/21/18 04:50 Ur Tricyclics Screen POSITIVE (NEGATIVE) H 05/14/18 23:00 Ur Phencyclidine Scrn NEGATIVE (NEGATIVE) 05/14/18 23:00 Amphetamines Screen NEGATIVE (NEGATIVE) 05/14/18 23:00 U Methamphetamines Scrn NEGATIVE (NEGATIVE) 05/14/18 23:00 U Benzodiazepines Scrn NEGATIVE (NEGATIVE) 05/14/18 23:00 U Cocaine Metab Screen NEGATIVE (NEGATIVE) 05/14/18 23:00 U Cannabinoids Screen NEGATIVE (NEGATIVE) 05/14/18 23:00 Helicobacter pylori Ab NEGATIVE (NEGATIVE) 05/24/18 11:45 Blood Type O POSITIVE 05/24/18 07:50 Antibody Screen NEGATIVE 05/24/18 07:50 - Physical Exam Vitals and I&O: Vital Signs Temp 97.5 F 06/02/18 12:00 Pulse 104 06/02/18 12:00 Resp 18 06/02/18 12:00 BP 103/74 06/02/18 12:00 Pulse Ox 97 06/02/18 12:00 Intake & Output 06/01/18 06/02/18 06/02/18 18:59 06:59 18:59 Intake Total 680.242 0607 969.167 Balance 010.262 6731 969.167 Weight (lbs) 160 lb Intake: Intake, IV Amount 999.167 969.167 D5-0.9%Ns 1,000 ml @ 50 999.167 969.167 mls/hr IV .Q20H [facility] Rx#: [id number] Tube Feeding 1185 Other 150 Other: # Voids 3 # Bowel Movements 0 Weight Source Bedscale Active Medications: Current Medications Acetaminophen (Tylenol 650mg/20.3ml Suspension) 650 mg GT Q6H PRN PRN Reason: pain Stop: 07/23/18 13:39 Divalproex Sodium (Depakote Dr) 250 mg PO Q12HR JOHN; Protocol Stop: 07/23/18 20:59 Last Admin: 06/02/18 09:19 Dose: 250 mg Haloperidol (Haldol) 2 mg PO BID PRN; Protocol PRN Reason: Agitation Stop: 07/15/18 16:59 Last Admin: 05/29/18 20:03 Dose: 2 mg Haloperidol (Haldol) 2 mg PO BID JOHN Stop: 07/16/18 08:59 Last Admin: 06/02/18 09:19 Dose: 2 mg Dextrose/Sodium Chloride (D5-0.9%Ns) 1,000 mls @ 50 mls/hr IV .Q20H JOHN Stop: 07/20/18 12:05 Last Admin: 06/02/18 09:21 Dose: 50 mls/hr Lactulose (Cephulac) 20 gm PO DAILY [facility] Stop: 07/14/18 08:59 Last Admin: 06/02/18 09:19 Dose: 20 gm Levothyroxine Sodium (Synthroid) 0.025 mg PO QDAC [facility] Stop: 07/14/18 08:59 Last Admin: 06/02/18 06:35 Dose: 0.025 mg Lorazepam (Ativan) 1 mg IVP Q4HR PRN; Protocol PRN Reason: Seizures Stop: 07/19/18 19:04 Last Admin: 05/30/18 22:30 Dose: 1 mg Morphine Sulfate (Morphine) 1 mg IVP Q4HR PRN PRN Reason: mild to moderate pain Stop: 07/23/18 15:26 Last Admin: 05/24/18 16:29 Dose: 1 mg Morphine Sulfate (Morphine) 2 mg IVP Q4HR PRN PRN Reason: Severe Pain Stop: 07/23/18 15:28 Ondansetron HCl (Zofran) 4 mg IV Q6H PRN PRN Reason: Nausea / Vomiting Stop: 07/14/18 09:50 Last Admin: 05/20/18 13:46 Dose: 4 mg Pantoprazole Sodium (Protonix) 40 mg IVP DAILY [facility] Stop: 07/20/18 11:59 Last Admin: 06/02/18 09:19 Dose: 40 mg Cabergoline 0.25mg (Tab) 1 PO QTHUR [facility] Stop: 07/26/18 08:59 Last Admin: 05/27/18 17:47 Dose: Not Given Cabergoline 0.5mg (Tab) 1 PO QMON JOHN Stop: 07/20/18 15:29 Last Admin: 05/31/18 09:22 Dose: Not Given Polyethylene Glycol (Miralax) 17 gm PO DAILY JOHN Stop: 07/16/18 13:14 Last Admin: 06/02/18 09:20 Dose: 17 gm Quetiapine Fumarate (Seroquel) 150 mg PO HS JOHN; Protocol Stop: 07/14/18 20:59 Last Admin: 06/01/18 20:22 Dose: 150 mg Vitamin D (Vitamin D3) 2,000 iu PO DAILY JOHN Stop: 07/14/18 08:59 Last Admin: 06/02/18 09:19 Dose: 2,000 iu General: weak, alert HEENT: NC/AT, PERRLA Neck: Supple Lungs: CTAB Cardiovascular: RRR, Normal S1, Normal S2, without murmur Abdomen: soft, non-tender, non-distended, +GT Neurological: alert - Procedures Procedures: Procedures Procedure Code Date EXCISION OF STOMACH, ENDO, DIAGN [id number] 05/15/18 INSERTION OF FEEDING DEVICE INTO STOMACH, OPEN APPROACH [id number] 05/15/18 Internal Medicine Assmt/Plan - Assessment Assessment: failure to thrive s/p peg mr vitamin d deficiency gerd - Plan Plan: pt eval aspiration precautions continue gt feedings follow up labs in am continue current plan of care Nutritional Asmnt/Malnutr-PDOC - Dietary Evaluation Malnutrition Findings (Please click <Entered> for more info): Nutritional Asmnt/Malnutrition Start: 05/17/18 11: 40 Text: Status: Complete Freq: Protocol: Document 05/17/18 11:40 LCHENG (Rec: 05/17/18 11:51 LCHENG [email or web address]) Nutritional Asmnt/Malnutrition Patient General Information Nutritional Screening High Risk Diagnosis FTT Pertinent Medical Hx/Surgical Hx mental retardation, hypothyroidism. Subjective Information Pt was not able to communicate d/t mental status. Per nurse, pt has been refusing to eat. Per EMR, PO intake 0% of most meals. Swallow eval scheduled for today. Current Diet Order/ Nutrition Support full liquid. Pertinent Medications D5-0.45ns, synthroid, seroquel , vit D3 Pertinent Labs 05/15 Glucose 120, alb 3.0 Nutritional Hx/Data Height 5 ft 1 in Height (Calculated Centimeters) 154.9 Current Weight (lbs) 118 lb Weight (Calculated Kilograms) 53.5 Weight (Calculated Grams) 64276.9 Body Mass Index (BMI) 22.3 Weight Status Approriate GI Symptoms GI Symptoms None Last BM not indicated Skin Integrity/Comment: abrasion to left lower knee and right lower leg Current %PO Negligible < 25% Estimated Nutritional Goals BEE in Kcals: Using Current wt Calories/Kcals/Kg 25-30 Kcals Calculated 3058-6779 Protein: Using Current wt Protein g/k-1.2 Protein Calculated 54-65 Fluid: ml 1350-1620ml (1ml/kcal) Nutritional Problem 1. Problem Problem inadequete food intake Etiology possible mental status/poor appetite Signs/Symptoms: PO intake <25% Intervention/Recommendation Comments 1. Wait for swallow eval result. Advance diet per ST recommendation. Assist pt with meals. MD to consider appetite stimulant as needed. 2. Monitor PO intake, wt, labs and skin integrity 3. F/U as high risk in 2-3 days, 05/19-05/20 Expected Outcomes/Goals Expected Outcomes/Goals 1. PO intake to meet at least 75% of nutritional needs. 2. Wt stability, skin to remain intact, labs to approach WNL.
[2018-06-03 05:37] LABS: % BASOPHILS 0.3 % (0.0-2.0); % EOSINOPHILS 1.3 % (0.0-5.0); % LYMPHOCYTES 34.9 % (20.0-50.0); % MONOCYTES 12.1 % (2.0-10.0); % NEUTROPHILS 51.4 % (40.0-80.0); EOSINOPHILE ABSOLUTE 0.1 Th/cmm (0.1-0.4); HEMATOCRIT 34.7 % (41.0-60); HEMOGLOBIN 11.8 gm/dL (12-16); MEAN CELL VOLUME 101.6 fl (81-100); MEAN CORPUSCULAR HEMOGLOBIN 34.6 pg (27.0-31.0); MEAN PLATELET VOLUME 7.1 fl; MONOCYTE ABSOLUTE 0.7 Th/cmm (0.3-1.0); NEUTROPHILE ABSOLUTE 2.8 Th/cmm (1.8-8.0); PLATELET COUNT 256 Th/cmm (150-400); RED BLOOD COUNT 3.41 Mil/cmm (3.80-5.10); RED CELL DISTRIBUTION WIDTH 13.3 % (11.5-20.0); WHITE BLOOD COUNT 5.6 Th/cmm (4.8-10.8)
[2018-06-03 06:07] LABS: ANION GAP 9.6 (7.0-16.0); BUN - UREA NITROGEN 8 mg/dL (7-25); CALCIUM SERUM 9.3 mg/dL (8.6-10.3); CARBON DIOXIDE 27.3 mEq/L (21.0-31.0); CHLORIDE 103 mEq/L (98-107); CREATININE - SERUM 0.5 mg/dL (0.6-1.2); GFR AFRICAN-AMERICAN > 60.0 ml/min (>90); GFR NON AFRICAN-AMERICAN > 60.0 ml/min; GLUCOSE 86 mg/dL (70-105); POTASSIUM SERUM 3.9 mEq/L (3.5-5.1); SODIUM SERUM 136 mEq/L (136-145)
[2018-06-03] MEDS: D5-0.9%NS 1,000 ML IV SCH (06:42)
[2018-06-03] MEDS: Levothyroxine 0.025 Mg Tab PO SCH (06:42)
[2018-06-03] MEDS: Lactulose 10 Gm/15 mL 30mL UDC PO SCH (09:16)
[2018-06-03] MEDS: POLYETHYLENE GLYCOL 3350 17 GM PACK PO SCH (09:16)
[2018-06-03] MEDS: Vitamin D3 2,000 IU SGL PO SCH (09:17)
[2018-06-03] MEDS: CABERGOLINE 0.25 MG PO SCH (09:18)
--- NOTE | 2018-06-03 11:00 | General Progress Note ---
Subjective - Review of Systems Events since last encounter: patient in no distress tolerating meds well Subjective: patient awake admitted with failure to thrive is mentally challenge Objective - Results Result Diagrams: 06/03/18 05:10 06/03/18 05:10 Recent Labs: Laboratory Last Values WBC 5.6 Th/cmm (4.8-10.8) 06/03/18 05:10 RBC 3.41 Mil/cmm (3.80-5.10) L 06/03/18 05:10 Hgb 11.8 gm/dL (12-16) L 06/03/18 05:10 Hct 34.7 % (41.0-60) L 06/03/18 05:10 MCV 101.6 fl (81-100) H 06/03/18 05:10 MCH 34.6 pg (27.0-31.0) H 06/03/18 05:10 MCHC Differential 34.0 pg (28.0-36.0) 06/03/18 05:10 RDW 13.3 % (11.5-20.0) 06/03/18 05:10 Plt Count 256 Th/cmm (150-400) 06/03/18 05:10 MPV 7.1 fl 06/03/18 05:10 Add Manual Diff YES 05/15/18 06:10 Neutrophils % 51.4 % (40.0-80.0) 06/03/18 05:10 Band Neutrophils % 4 % (0-10) 05/15/18 06:10 Lymphocytes % 34.9 % (20.0-50.0) 06/03/18 05:10 Monocytes % 12.1 % (2.0-10.0) H 06/03/18 05:10 Eosinophils % 1.3 % (0.0-5.0) 06/03/18 05:10 Basophils % 0.3 % (0.0-2.0) 06/03/18 05:10 Neutrophils (Manual) 52 % (40-80) 05/15/18 06:10 Lymphocytes 30 % (20-50) 05/15/18 06:10 Monocytes 14 % (2-10) H 05/15/18 06:10 Eosinophils 0 % (0-5) 05/15/18 06:10 Basophils 0 % (0-3) 05/15/18 06:10 Platelet Estimate ADEQUATE (NORMAL) 05/14/18 22:40 Platelet Morphology NORMAL (NORMAL) 05/14/18 22:40 RBC Morph Micro Appear NORMAL (NORMAL) 05/14/18 22:40 PT 11.1 SECONDS (9.5-11.5) 05/24/18 04:50 INR 1.07 (0.5-1.4) 05/24/18 04:50 PTT (Actin FS) 28.2 SECONDS (26.0-38.0) 05/24/18 04:50 Sodium 136 mEq/L (136-145) 06/03/18 05:10 Potassium 3.9 mEq/L (3.5-5.1) 06/03/18 05:10 Chloride 103 mEq/L (98-107) 06/03/18 05:10 Carbon Dioxide 27.3 mEq/L (21.0-31.0) 06/03/18 05:10 Anion Gap 9.6 (7.0-16.0) 06/03/18 05:10 BUN 8 mg/dL (7-25) 06/03/18 05:10 Creatinine 0.5 mg/dL (0.6-1.2) L 06/03/18 05:10 Est GFR ( Amer) > 60.0 ml/min (>90) 06/03/18 05:10 Est GFR (Non-Af Amer) > 60.0 ml/min 06/03/18 05:10 BUN/Creatinine Ratio 16.0 06/03/18 05:10 Glucose 86 mg/dL (70-105) 06/03/18 05:10 Calcium 9.3 mg/dL (8.6-10.3) 06/03/18 05:10 Phosphorus 3.6 mg/dL (2.5-5.0) 05/14/18 22:40 Magnesium 1.8 mg/dL (1.9-2.7) L 05/14/18 22:40 Total Bilirubin 0.5 mg/dL (0.3-1.0) 05/21/18 04:50 AST 12 U/L (13-39) L 05/21/18 04:50 ALT 9 U/L (7-52) 05/21/18 04:50 Alkaline Phosphatase 52 U/L (34-104) 05/21/18 04:50 Total Protein 5.9 gm/dL (6.0-8.3) L 05/21/18 04:50 Albumin 3.3 gm/dL (3.7-5.3) L 05/21/18 04:50 Globulin 2.6 gm/dL 05/21/18 04:50 Albumin/Globulin Ratio 1.3 (1.0-1.8) 05/21/18 04:50 Triglycerides 75 mg/dL (<150) 05/15/18 06:10 Cholesterol 147 mg/dL (<200) 05/15/18 06:10 LDL Cholesterol Direct 67 mg/dL (75-193) L 05/15/18 06:10 HDL Cholesterol 63 mg/dL (23-92) 05/15/18 06:10 TSH 3.28 uIU/ml (0.34-5.60) 05/15/18 06:10 Urine Source CATH 05/14/18 23:00 Urine Color YELLOW 05/14/18 23:00 Urine Clarity CLEAR (CLEAR) 05/14/18 23:00 Urine pH 7.0 (4.6 - 8.0) 05/14/18 23:00 Ur Specific [place] 1.015 (1.005-1.030) 05/14/18 23:00 Urine Protein 30 mg/dL (NEGATIVE) H 05/14/18 23:00 Urine Glucose (UA) NEGATIVE mg/dL (NEGATIVE) 05/14/18 23:00 Urine Ketones 40 mg/dL (NEGATIVE) H 05/14/18 23:00 Urine Blood LARGE (NEGATIVE) H 05/14/18 23:00 Urine Nitrate NEGATIVE (NEGATIVE) 05/14/18 23:00 Urine Bilirubin NEGATIVE (NEGATIVE) 05/14/18 23:00 Urine Urobilinogen 1.0 E.U./dL (0.2 - 1.0) 05/14/18 23:00 Ur Leukocyte Esterase NEGATIVE (NEGATIVE) 05/14/18 23:00 Urine RBC 10-25 /hpf (0-5) H 05/14/18 23:00 Urine WBC 2-5 /hpf (0-5) 05/14/18 23:00 Ur Epithelial Cells RARE /lpf (FEW) 05/14/18 23:00 Urine Bacteria NONE SEEN /hpf (NONE SEEN) 05/14/18 23:00 Urine Mucus FEW /lpf (FEW) 05/14/18 23:00 Urine Test NEGATIVE 05/24/18 10:05 Urine Opiates Screen NEGATIVE (NEGATIVE) 05/14/18 23:00 Urine Methadone Screen NEGATIVE (NEGATIVE) 05/14/18 23:00 Ur Barbiturates Screen NEGATIVE (NEGATIVE) 05/14/18 23:00 Valproic Acid < 10.0 ug/mL (50.0-100.0) L 05/21/18 04:50 Ur Tricyclics Screen POSITIVE (NEGATIVE) H 05/14/18 23:00 Ur Phencyclidine Scrn NEGATIVE (NEGATIVE) 05/14/18 23:00 Amphetamines Screen NEGATIVE (NEGATIVE) 05/14/18 23:00 U Methamphetamines Scrn NEGATIVE (NEGATIVE) 05/14/18 23:00 U Benzodiazepines Scrn NEGATIVE (NEGATIVE) 05/14/18 23:00 U Cocaine Metab Screen NEGATIVE (NEGATIVE) 05/14/18 23:00 U Cannabinoids Screen NEGATIVE (NEGATIVE) 05/14/18 23:00 Helicobacter pylori Ab NEGATIVE (NEGATIVE) 05/24/18 11:45 Blood Type O POSITIVE 05/24/18 07:50 Antibody Screen NEGATIVE 05/24/18 07:50 - Physical Exam Vitals and I&O: Vital Signs Temp 98.0 F 06/03/18 04:00 Pulse 106 06/03/18 04:00 Resp 17 06/03/18 04:00 BP 109/57 06/03/18 04:00 Pulse Ox 98 06/03/18 04:00 Intake & Output 06/02/18 06/03/18 06/03/18 18:59 06:59 18:59 Intake Total 4915.228 9449 Balance 8390.018 7326 Weight (lbs) 72.575 kg 70.987 kg Intake: Intake, IV Amount 814.912 9160 D5-0.9%Ns 1,000 ml @ 50 507.275 3293 mls/hr IV .Q20H JOHN Rx#: [id number] Tube Feeding 711 Other 200 Other: # Voids 3 3 # Bowel Movements 1 0 Weight Source Bedscale Bedscale Active Medications: Current Medications Acetaminophen (Tylenol 650mg/20.3ml Suspension) 650 mg GT Q6H PRN PRN Reason: pain Stop: 07/23/18 13:39 Divalproex Sodium (Depakote Dr) 250 mg PO Q12HR JOHN; Protocol Stop: 07/23/18 20:59 Last Admin: 06/03/18 09:18 Dose: 250 mg Haloperidol (Haldol) 2 mg PO BID PRN; Protocol PRN Reason: Agitation Stop: 07/15/18 16:59 Last Admin: 05/29/18 20:03 Dose: 2 mg Haloperidol (Haldol) 2 mg PO BID JOHN Stop: 07/16/18 08:59 Last Admin: 06/03/18 09:17 Dose: 2 mg Dextrose/Sodium Chloride (D5-0.9%Ns) 1,000 mls @ 50 mls/hr IV .Q20H JOHN Stop: 07/20/18 12:05 Last Admin: 06/03/18 06:42 Dose: 50 mls/hr Lactulose (Cephulac) 20 gm PO DAILY [facility] Stop: 07/14/18 08:59 Last Admin: 06/03/18 09:16 Dose: 20 gm Levothyroxine Sodium (Synthroid) 0.025 mg PO QDAC JOHN Stop: 07/14/18 08:59 Last Admin: 06/03/18 06:42 Dose: 0.025 mg Lorazepam (Ativan) 1 mg IVP Q4HR PRN; Protocol PRN Reason: Seizures Stop: 07/19/18 19:04 Last Admin: 05/30/18 22:30 Dose: 1 mg Morphine Sulfate (Morphine) 1 mg IVP Q4HR PRN PRN Reason: mild to moderate pain Stop: 07/23/18 15:26 Last Admin: 05/24/18 16:29 Dose: 1 mg Morphine Sulfate (Morphine) 2 mg IVP Q4HR PRN PRN Reason: Severe Pain Stop: 07/23/18 15:28 Ondansetron HCl (Zofran) 4 mg IV Q6H PRN PRN Reason: Nausea / Vomiting Stop: 07/14/18 09:50 Last Admin: 05/20/18 13:46 Dose: 4 mg Pantoprazole Sodium (Protonix) 40 mg IVP DAILY [facility] Stop: 07/20/18 11:59 Last Admin: 06/03/18 09:17 Dose: 40 mg Cabergoline 0.25mg (Tab) 1 PO QTHUR [facility] Stop: 07/26/18 08:59 Last Admin: 06/03/18 09:18 Dose: Not Given Cabergoline 0.5mg (Tab) 1 PO QMON [facility] Stop: 07/20/18 15:29 Last Admin: 05/31/18 09:22 Dose: Not Given Polyethylene Glycol (Miralax) 17 gm PO DAILY [facility] Stop: 07/16/18 13:14 Last Admin: 06/03/18 09:16 Dose: 17 gm Quetiapine Fumarate (Seroquel) 150 mg PO HS JOHN; Protocol Stop: 07/14/18 20:59 Last Admin: 06/02/18 20:34 Dose: 150 mg Vitamin D (Vitamin D3) 2,000 iu PO DAILY [facility] Stop: 07/14/18 08:59 Last Admin: 06/03/18 09:17 Dose: 2,000 iu General: No acute distress HEENT: Atraumatic Neck: Supple Cardiovascular: Regular rate Lungs: Clear to auscultation, Normal air movement Abdomen: Bowel sounds, Soft, Other (INTACT GT, BINDER), no Tender, no Distended - Procedures Procedures: Procedures Procedure Code Date EXCISION OF STOMACH, ENDO, DIAGN [id number] 05/15/18 INSERTION OF FEEDING DEVICE INTO STOMACH, OPEN APPROACH [id number] 05/15/18 Assessment/Plan - Problem List Patient Problems: All Active Problems Failure to thrive (Acute) [id number] GERD (gastroesophageal reflux disease) (Acute) K21.9 PEG (percutaneous endoscopic gastrostomy) status (Acute) Z93.1 Vitamin B deficiency (Acute) E53.9 Vitamin B deficiency (Acute) E53.9 - Plan Plan: as per order sheet Nutritional Asmnt/Malnutr-PDOC - Dietary Evaluation Malnutrition Findings (Please click <Entered> for more info): Nutritional Asmnt/Malnutrition Start: 05/17/18 11: 40 Text: Status: Complete Freq: Protocol: Document 05/17/18 11:40 CHAD (Rec: 05/17/18 11:51 CHAD [email or web address]) Nutritional Asmnt/Malnutrition Patient General Information Nutritional Screening High Risk Diagnosis FTT Pertinent Medical Hx/Surgical Hx mental retardation, hypothyroidism. Subjective Information Pt was not able to communicate d/t mental status. Per nurse, pt has been refusing to eat. Per EMR, PO intake 0% of most meals. Swallow eval scheduled for today. Current Diet Order/ Nutrition Support full liquid. Pertinent Medications D5-0.45ns, synthroid, seroquel , vit D3 Pertinent Labs 05/15 Glucose 120, alb 3.0 Nutritional Hx/Data Height 1.55 m Height (Calculated Centimeters) 154.9 Current Weight (lbs) 53.524 kg Weight (Calculated Kilograms) 53.5 Weight (Calculated Grams) 71041.9 Body Mass Index (BMI) 22.3 Weight Status Approriate GI Symptoms GI Symptoms None Last BM not indicated Skin Integrity/Comment: abrasion to left lower knee and right lower leg Current %PO Negligible < 25% Estimated Nutritional Goals BEE in Kcals: Using Current wt Calories/Kcals/Kg 25-30 Kcals Calculated 9356-9368 Protein: Using Current wt Protein g/k-1.2 Protein Calculated 54-65 Fluid: ml 1350-1620ml (1ml/kcal) Nutritional Problem 1. Problem Problem inadequete food intake Etiology possible mental status/poor appetite Signs/Symptoms: PO intake <25% Intervention/Recommendation Comments 1. Wait for swallow eval result. Advance diet per ST recommendation. Assist pt with meals. MD to consider appetite stimulant as needed. 2. Monitor PO intake, wt, labs and skin integrity 3. F/U as high risk in 2-3 days, 05/19-05/20 Expected Outcomes/Goals Expected Outcomes/Goals 1. PO intake to meet at least 75% of nutritional needs. 2. Wt stability, skin to remain intact, labs to approach WNL.
[2018-06-04] MEDS: Levothyroxine 0.025 Mg Tab PO SCH (06:30)
[2018-06-04] MEDS: Lactulose 10 Gm/15 mL 30mL UDC PO SCH (08:45)
[2018-06-04] MEDS: Vitamin D3 2,000 IU SGL PO SCH (08:46)
[2018-06-04] MEDS: POLYETHYLENE GLYCOL 3350 17 GM PACK PO SCH (08:47)
--- NOTE | 2018-06-04 11:47 | Internal Medicine Prog Note ---
Internal Medicine Subjective - Subjective Service Date: 06/04/18 Patient is:: awake, non-verbal Per staff patient has:: tolerating meds Internal Medicine Objective - Results Result Diagrams: 06/03/18 05:10 06/03/18 05:10 Recent Labs: Laboratory Last Values WBC 5.6 Th/cmm (4.8-10.8) 06/03/18 05:10 RBC 3.41 Mil/cmm (3.80-5.10) L 06/03/18 05:10 Hgb 11.8 gm/dL (12-16) L 06/03/18 05:10 Hct 34.7 % (41.0-60) L 06/03/18 05:10 MCV 101.6 fl (81-100) H 06/03/18 05:10 MCH 34.6 pg (27.0-31.0) H 06/03/18 05:10 MCHC Differential 34.0 pg (28.0-36.0) 06/03/18 05:10 RDW 13.3 % (11.5-20.0) 06/03/18 05:10 Plt Count 256 Th/cmm (150-400) 06/03/18 05:10 MPV 7.1 fl 06/03/18 05:10 Add Manual Diff YES 05/15/18 06:10 Neutrophils % 51.4 % (40.0-80.0) 06/03/18 05:10 Band Neutrophils % 4 % (0-10) 05/15/18 06:10 Lymphocytes % 34.9 % (20.0-50.0) 06/03/18 05:10 Monocytes % 12.1 % (2.0-10.0) H 06/03/18 05:10 Eosinophils % 1.3 % (0.0-5.0) 06/03/18 05:10 Basophils % 0.3 % (0.0-2.0) 06/03/18 05:10 Neutrophils (Manual) 52 % (40-80) 05/15/18 06:10 Lymphocytes 30 % (20-50) 05/15/18 06:10 Monocytes 14 % (2-10) H 05/15/18 06:10 Eosinophils 0 % (0-5) 05/15/18 06:10 Basophils 0 % (0-3) 05/15/18 06:10 Platelet Estimate ADEQUATE (NORMAL) 05/14/18 22:40 Platelet Morphology NORMAL (NORMAL) 05/14/18 22:40 RBC Morph Micro Appear NORMAL (NORMAL) 05/14/18 22:40 PT 11.1 SECONDS (9.5-11.5) 05/24/18 04:50 INR 1.07 (0.5-1.4) 05/24/18 04:50 PTT (Actin FS) 28.2 SECONDS (26.0-38.0) 05/24/18 04:50 Sodium 136 mEq/L (136-145) 06/03/18 05:10 Potassium 3.9 mEq/L (3.5-5.1) 06/03/18 05:10 Chloride 103 mEq/L (98-107) 06/03/18 05:10 Carbon Dioxide 27.3 mEq/L (21.0-31.0) 06/03/18 05:10 Anion Gap 9.6 (7.0-16.0) 06/03/18 05:10 BUN 8 mg/dL (7-25) 06/03/18 05:10 Creatinine 0.5 mg/dL (0.6-1.2) L 06/03/18 05:10 Est GFR ( Amer) > 60.0 ml/min (>90) 06/03/18 05:10 Est GFR (Non-Af Amer) > 60.0 ml/min 06/03/18 05:10 BUN/Creatinine Ratio 16.0 06/03/18 05:10 Glucose 86 mg/dL (70-105) 06/03/18 05:10 Calcium 9.3 mg/dL (8.6-10.3) 06/03/18 05:10 Phosphorus 3.6 mg/dL (2.5-5.0) 05/14/18 22:40 Magnesium 1.8 mg/dL (1.9-2.7) L 05/14/18 22:40 Total Bilirubin 0.5 mg/dL (0.3-1.0) 05/21/18 04:50 AST 12 U/L (13-39) L 05/21/18 04:50 ALT 9 U/L (7-52) 05/21/18 04:50 Alkaline Phosphatase 52 U/L (34-104) 05/21/18 04:50 Total Protein 5.9 gm/dL (6.0-8.3) L 05/21/18 04:50 Albumin 3.3 gm/dL (3.7-5.3) L 05/21/18 04:50 Globulin 2.6 gm/dL 05/21/18 04:50 Albumin/Globulin Ratio 1.3 (1.0-1.8) 05/21/18 04:50 Triglycerides 75 mg/dL (<150) 05/15/18 06:10 Cholesterol 147 mg/dL (<200) 05/15/18 06:10 LDL Cholesterol Direct 67 mg/dL (75-193) L 05/15/18 06:10 HDL Cholesterol 63 mg/dL (23-92) 05/15/18 06:10 TSH 3.28 uIU/ml (0.34-5.60) 05/15/18 06:10 Urine Source CATH 05/14/18 23:00 Urine Color YELLOW 05/14/18 23:00 Urine Clarity CLEAR (CLEAR) 05/14/18 23:00 Urine pH 7.0 (4.6 - 8.0) 05/14/18 23:00 Ur Specific [place] 1.015 (1.005-1.030) 05/14/18 23:00 Urine Protein 30 mg/dL (NEGATIVE) H 05/14/18 23:00 Urine Glucose (UA) NEGATIVE mg/dL (NEGATIVE) 05/14/18 23:00 Urine Ketones 40 mg/dL (NEGATIVE) H 05/14/18 23:00 Urine Blood LARGE (NEGATIVE) H 05/14/18 23:00 Urine Nitrate NEGATIVE (NEGATIVE) 05/14/18 23:00 Urine Bilirubin NEGATIVE (NEGATIVE) 05/14/18 23:00 Urine Urobilinogen 1.0 E.U./dL (0.2 - 1.0) 05/14/18 23:00 Ur Leukocyte Esterase NEGATIVE (NEGATIVE) 05/14/18 23:00 Urine RBC 10-25 /hpf (0-5) H 05/14/18 23:00 Urine WBC 2-5 /hpf (0-5) 05/14/18 23:00 Ur Epithelial Cells RARE /lpf (FEW) 05/14/18 23:00 Urine Bacteria NONE SEEN /hpf (NONE SEEN) 05/14/18 23:00 Urine Mucus FEW /lpf (FEW) 05/14/18 23:00 Urine Test NEGATIVE 05/24/18 10:05 Urine Opiates Screen NEGATIVE (NEGATIVE) 05/14/18 23:00 Urine Methadone Screen NEGATIVE (NEGATIVE) 05/14/18 23:00 Ur Barbiturates Screen NEGATIVE (NEGATIVE) 05/14/18 23:00 Valproic Acid < 10.0 ug/mL (50.0-100.0) L 05/21/18 04:50 Ur Tricyclics Screen POSITIVE (NEGATIVE) H 05/14/18 23:00 Ur Phencyclidine Scrn NEGATIVE (NEGATIVE) 05/14/18 23:00 Amphetamines Screen NEGATIVE (NEGATIVE) 05/14/18 23:00 U Methamphetamines Scrn NEGATIVE (NEGATIVE) 05/14/18 23:00 U Benzodiazepines Scrn NEGATIVE (NEGATIVE) 05/14/18 23:00 U Cocaine Metab Screen NEGATIVE (NEGATIVE) 05/14/18 23:00 U Cannabinoids Screen NEGATIVE (NEGATIVE) 05/14/18 23:00 Helicobacter pylori Ab NEGATIVE (NEGATIVE) 05/24/18 11:45 Blood Type O POSITIVE 05/24/18 07:50 Antibody Screen NEGATIVE 05/24/18 07:50 - Physical Exam Vitals and I&O: Vital Signs Temp 97.5 F 06/04/18 08:01 Pulse 81 06/04/18 08:01 Resp 17 06/04/18 08:01 BP 93/45 06/04/18 08:01 Pulse Ox 95 06/04/18 08:01 Intake & Output 06/03/18 06/04/18 06/04/18 18:59 06:59 18:59 Intake Total 1380 60 Balance 1380 60 Weight (lbs) 117 lb 9 oz 117 lb 7 oz Intake: Tube Feeding 1380 Other 60 Other: # Voids 2 # Bowel Movements 1 Stool Characteristics Soft Brown Weight Source Bedscale Bedscale Active Medications: Current Medications Acetaminophen (Tylenol 650mg/20.3ml Suspension) 650 mg GT Q6H PRN PRN Reason: pain Stop: 07/23/18 13:39 Divalproex Sodium (Depakote Sprinkle) 250 mg PO Q12HR JOHN Stop: 08/03/18 08:59 Last Admin: 06/04/18 09:33 Dose: 250 mg Haloperidol (Haldol) 2 mg PO BID PRN; Protocol PRN Reason: Agitation Stop: 07/15/18 16:59 Last Admin: 05/29/18 20:03 Dose: 2 mg Haloperidol (Haldol) 2 mg PO BID JOHN Stop: 07/16/18 08:59 Last Admin: 06/04/18 08:46 Dose: 2 mg Lactulose (Cephulac) 20 gm PO DAILY JOHN Stop: 07/14/18 08:59 Last Admin: 06/04/18 08:45 Dose: 20 gm Levothyroxine Sodium (Synthroid) 0.025 mg PO QDAC JOHN Stop: 07/14/18 08:59 Last Admin: 06/04/18 06:30 Dose: 0.025 mg Lorazepam (Ativan) 1 mg IVP Q4HR PRN; Protocol PRN Reason: Seizures Stop: 07/19/18 19:04 Last Admin: 05/30/18 22:30 Dose: 1 mg Morphine Sulfate (Morphine) 1 mg IVP Q4HR PRN PRN Reason: mild to moderate pain Stop: 07/23/18 15:26 Last Admin: 05/24/18 16:29 Dose: 1 mg Morphine Sulfate (Morphine) 2 mg IVP Q4HR PRN PRN Reason: Severe Pain Stop: 07/23/18 15:28 Ondansetron HCl (Zofran) 4 mg IV Q6H PRN PRN Reason: Nausea / Vomiting Stop: 07/14/18 09:50 Last Admin: 05/20/18 13:46 Dose: 4 mg Pantoprazole Sodium (Protonix) 40 mg IVP DAILY JOHN Stop: 07/20/18 11:59 Last Admin: 06/04/18 08:45 Dose: 40 mg Cabergoline 0.25mg (Tab) 1 PO QTHUR [facility] Stop: 07/26/18 08:59 Last Admin: 06/03/18 09:18 Dose: Not Given Cabergoline 0.5mg (Tab) 1 PO QMON [facility] Stop: 07/20/18 15:29 Last Admin: 05/31/18 09:22 Dose: Not Given Polyethylene Glycol (Miralax) 17 gm PO DAILY JOHN Stop: 07/16/18 13:14 Last Admin: 06/04/18 08:47 Dose: 17 gm Quetiapine Fumarate (Seroquel) 150 mg PO HS JOHN; Protocol Stop: 07/14/18 20:59 Last Admin: 06/03/18 20:53 Dose: 150 mg Vitamin D (Vitamin D3) 2,000 iu PO DAILY JOHN Stop: 07/14/18 08:59 Last Admin: 06/04/18 08:46 Dose: 2,000 iu General: weak, alert HEENT: NC/AT, PERRLA Neck: Supple Lungs: CTAB Cardiovascular: RRR, Normal S1, Normal S2, without murmur Abdomen: soft, non-tender, non-distended, +GT Neurological: alert - Procedures Procedures: Procedures Procedure Code Date EXCISION OF STOMACH, ENDO, DIAGN [id number] 05/15/18 INSERTION OF FEEDING DEVICE INTO STOMACH, OPEN APPROACH [id number] 05/15/18 Internal Medicine Assmt/Plan - Assessment Assessment: failure to thrive s/p peg mr vitamin d deficiency gerd - Plan Plan: aspiration precautions continue gt feedings continue current plan of care Nutritional Asmnt/Malnutr-PDOC - Dietary Evaluation Malnutrition Findings (Please click <Entered> for more info): Nutritional Asmnt/Malnutrition Start: 05/17/18 11: 40 Text: Status: Complete Freq: Protocol: Document 05/17/18 11:40 LCHENG (Rec: 05/17/18 11:51 [email or web address]) Nutritional Asmnt/Malnutrition Patient General Information Nutritional Screening High Risk Diagnosis FTT Pertinent Medical Hx/Surgical Hx mental retardation, hypothyroidism. Subjective Information Pt was not able to communicate d/t mental status. Per nurse, pt has been refusing to eat. Per EMR, PO intake 0% of most meals. Swallow eval scheduled for today. Current Diet Order/ Nutrition Support full liquid. Pertinent Medications D5-0.45ns, synthroid, seroquel , vit D3 Pertinent Labs 05/15 Glucose 120, alb 3.0 Nutritional Hx/Data Height 5 ft 1 in Height (Calculated Centimeters) 154.9 Current Weight (lbs) 118 lb Weight (Calculated Kilograms) 53.5 Weight (Calculated Grams) 03411.9 Body Mass Index (BMI) 22.3 Weight Status Approriate GI Symptoms GI Symptoms None Last BM not indicated Skin Integrity/Comment: abrasion to left lower knee and right lower leg Current %PO Negligible < 25% Estimated Nutritional Goals BEE in Kcals: Using Current wt Calories/Kcals/Kg 25-30 Kcals Calculated 9931-6124 Protein: Using Current wt Protein g/k-1.2 Protein Calculated 54-65 Fluid: ml 1350-1620ml (1ml/kcal) Nutritional Problem 1. Problem Problem inadequete food intake Etiology possible mental status/poor appetite Signs/Symptoms: PO intake <25% Intervention/Recommendation Comments 1. Wait for swallow eval result. Advance diet per ST recommendation. Assist pt with meals. MD to consider appetite stimulant as needed. 2. Monitor PO intake, wt, labs and skin integrity 3. F/U as high risk in 2-3 days, 05/19-05/20 Expected Outcomes/Goals Expected Outcomes/Goals 1. PO intake to meet at least 75% of nutritional needs. 2. Wt stability, skin to remain intact, labs to approach WNL.
[2018-06-05 05:31] LABS: % BASOPHILS 0.2 % (0.0-2.0); % LYMPHOCYTES 34.9 % (20.0-50.0); % MONOCYTES 13.5 % (2.0-10.0); % NEUTROPHILS 50.4 % (40.0-80.0); EOSINOPHILE ABSOLUTE 0.1 Th/cmm (0.1-0.4); HEMATOCRIT 35.9 % (41.0-60); HEMOGLOBIN 12.1 gm/dL (12-16); LYMPHOCYTE ABSOLUTE 1.8 Th/cmm (1.5-3.0); MEAN CELL VOLUME 101.6 fl (81-100); MEAN CORPUSCULAR HEMOGLOBIN 34.2 pg (27.0-31.0); MEAN CORPUSCULAR HGB CONC 33.6 pg (28.0-36.0); MEAN PLATELET VOLUME 6.9 fl; MONOCYTE ABSOLUTE 0.7 Th/cmm (0.3-1.0); NEUTROPHILE ABSOLUTE 2.6 Th/cmm (1.8-8.0); PLATELET COUNT 308 Th/cmm (150-400); RED BLOOD COUNT 3.53 Mil/cmm (3.80-5.10); RED CELL DISTRIBUTION WIDTH 13.1 % (11.5-20.0); WHITE BLOOD COUNT 5.2 Th/cmm (4.8-10.8)
[2018-06-05 05:55] LABS: ANION GAP 10.5 (7.0-16.0); BUN - UREA NITROGEN 13 mg/dL (7-25); CALCIUM SERUM 9.8 mg/dL (8.6-10.3); CARBON DIOXIDE 27.5 mEq/L (21.0-31.0); CHLORIDE 103 mEq/L (98-107); CREATININE - SERUM 0.5 mg/dL (0.6-1.2); GFR AFRICAN-AMERICAN > 60.0 ml/min (>90); GFR NON AFRICAN-AMERICAN > 60.0 ml/min; GLUCOSE 91 mg/dL (70-105); SODIUM SERUM 137 mEq/L (136-145)
[2018-06-05] MEDS: Levothyroxine 0.025 Mg Tab PO SCH (06:50)
[2018-06-05] MEDS: Vitamin D3 2,000 IU SGL PO SCH (08:42)
[2018-06-05] MEDS: Lactulose 10 Gm/15 mL 30mL UDC PO SCH (08:42)
[2018-06-05] MEDS: POLYETHYLENE GLYCOL 3350 17 GM PACK PO SCH (08:42)
--- NOTE | 2018-06-05 19:15 | Progress Notes ---
DATE: 06/05/2018 SUBJECTIVE: The patient was seen in her room, lying in the bed. The patient is a poor historian due to medical condition. Otherwise, the patient to be in no acute distress and tolerating current feeding. OBJECTIVE: VITAL SIGNS: Temperature 98.2, heart rate 90, blood pressure 97/62, respiration of 18 and 98% on room air. HEENT: Head is atraumatic and normocephalic. Eyes: ____ equally round and reactive. NECK: Supple. No JVD. CARDIOVASCULAR: S1 and S2, without murmur. PULMONARY: Clear to auscultation. GASTROINTESTINAL: Soft and nontender without guarding. Positive bowel sounds. GENITOURINARY: The patient has a gastrostomy tube in place. MUSCULOSKELETAL: No clubbing. No cyanosis noted. ASSESSMENT: 1. Failure to thrive. 2. Status post PEG placement. 3. Mental retardation. PLAN: We will put the patient on aspiration precaution. Case management for discharge planning. Treatment plans were discussed with the patient's nurse. Treatment plans were discussed with Dr. Liao. JOB# [id number]
== END 2018-06-05 14:53 | DRG 241 ==
LOC: ER 21:51 → MSI 05-15 00:20 → TELE 05-20 19:44 → MSI 05-26 11:08
PROVIDERS: ADMIT Internal Medicine; ATTEND Internal Medicine
PROC: 0DB68ZX Excision of Stomach, Via Natural or Artificial Opening Endoscopic, Diagnostic (ICD-10-PCS; principal; 2018-05-24)
PROC: 0DH63UZ Insertion of Feeding Device into Stomach, Percutaneous Approach (ICD-10-PCS; 2018-05-24)
PROC: 0DB98ZX Excision of Duodenum, Via Natural or Artificial Opening Endoscopic, Diagnostic (ICD-10-PCS; 2018-05-24)
PROC: 0DB78ZX Excision of Stomach, Pylorus, Via Natural or Artificial Opening Endoscopic, Diagnostic (ICD-10-PCS; 2018-05-24)
PROC: 0DB58ZX Excision of Esophagus, Via Natural or Artificial Opening Endoscopic, Diagnostic (ICD-10-PCS; 2018-05-24)
DX: K29.70 Gastritis, unspecified, without bleeding (principal); E43 Unspecified severe protein-calorie malnutrition; R64 Cachexia; R56.9 Unspecified convulsions; R13.10 Dysphagia, unspecified; K22.10 Ulcer of esophagus without bleeding; E86.0 Dehydration; E03.9 Hypothyroidism, unspecified; K31.7 Polyp of stomach and duodenum; K59.00 Constipation, unspecified; K21.9 Gastro-esophageal reflux disease without esophagitis; R62.7 Adult failure to thrive; E55.9 Vitamin D deficiency, unspecified; F79 Unspecified intellectual disabilities; Z68.22 Body mass index [BMI] 22.0-22.9, adult
CPT/HCPCS: 36415-UA; 70450-TC; 74000-TC; 76700-TC; 80048-TC; 80053-TC; 80061-TC; 80164-TC; 80307; 81001-TC; 81025-TC; 83735-TC; 84100-TC; 84443-TC; 85007-TC; 85025-TC; 85610-TC; 86850-TC; 86900-TC; 86901-TC; 87338-TC; 94760; 97530; A4217; C9113; J0690; J2060; J2270; J2405; J2704; J2765; J3480; J7042; X3401; X3904; X7704; Z7506; Z7610